=== PATIENT | male | born 1940 | race Caucasian/White ===

== ENCOUNTER → 2017-07-07 13:02 | Outpatient (CLI) | payer MEDICARE, SELFPAY ==
[2017-07-07 15:22] LABS: Absolute Lymphocyte Count 0.82 X10^3/ul (0.83-4.51); Absolute Neutrophil Count 3.9 X10^3/uL (2.0-7.7); Basophil# 0.02 X10^3/uL; Basophil% 0.4 % (0-1); Eosinophil# 0.11 X10^3/uL; Eosinophils% 2.1 % (0-5); Hematocrit 46.1 % (40-54); Hemoglobin 15.4 g/dl (13.0-16.5); Lymphocyte # 0.82 X10^3/ul (4.0); Lymphocyte % 15.4 % (19-41); Mean Corp Hgb Conc 33.4 g/gl (32-36); Mean Corpuscular Hgb 32.2 pg (27.0-32.0); Mean Corpuscular Volume 96.2 fL (80-94); Monocyte# 0.46 X10^3/uL; Monocyte% 8.7 % (0-10); Neutrophil # 3.89 X10^3/uL (2.7-7.7); Neutrophil % 73.2 % (47-70); Platelet Count 188 K/mm3 (150-450); RBC Distribution Width CV 12.9 % (11.6-14.6); RBC Distribution Width SD 45.2 fl (35.1-43.9); Red Blood Count 4.79 M/mm3 (4.6-6.2); White Blood Count 5.3 K/mm3 (4.4-11.0)
[2017-07-07 15:24] LABS: POSITIVE COUNT NO; POSITIVE DIFFERENTIAL NO; POSITIVE MORPHOLOGY NO
[2017-07-07 15:39] LABS: Anion Gap 9 (5-15); BUN 15 mg/dL (7-18); BUN/Creat Ratio 12.2 RATIO (10-20); CPK Total, Creatine Kinase 178 U/L (39-308); Calcium,Total 8.9 mg/dL (8.5-10.1); Chloride 103 mmol/L (98-107); Creatinine, Serum 1.23 mg/dL (0.70-1.30); EST Glomerular Filtration Rate 61 mL/min (>60); Est Glom Filt Rate - Afr Amer 74 mL/min (>60); Glucose 101 mg/dL (74-106); Potassium 4.5 mmol/L (3.5-5.1); Sodium Level 138 mmol/L (136-145)
[2017-07-08 09:09] LABS: Myoglobin, Serum 91 ng/mL (28-72)
== END ==
PROVIDERS: Family Provider Family Medicine Geriatric Medicine; PCP Family Medicine Geriatric Medicine; Visit Provider Family Medicine Geriatric Medicine
DX: R07.9 Chest pain, unspecified (principal)
CPT/HCPCS: 36415; 80048; 82550; 83874; 84484; 85025

== ENCOUNTER 2018-01-24 14:43 | Emergency (ER) | payer OTHER, MEDICARE, SELFPAY ==
[2018-01-24 14:44] VITALS: BP 154/105; PULSE 77; RESP 18; TEMP 36.9; O2SAT 96; BMI 25.1
--- NOTE | 2018-01-24 14:57 | CT_ITS ---
STUDY: CT BRAIN WITHOUT CONTRAST REASON FOR EXAM: Male, 77 years old. Fall hitting frontal region. Swelling RADIATION DOSAGE (If Supplied By Facility): CTDIvol = ( 60.81 ) mGy, DLP = ( 998.67 ) mGycm TECHNIQUE: Transaxial CT imaging of the brain was performed without administration of intravenous contrast material. Individualized dose optimization techniques were used for this CT. COMPARISON: None. FINDINGS: There is frontal soft tissue swelling. Normal calvarium. Normal size ventricles and extra-axial spaces for the patient's age. There are mild areas of decreased attenuation within the white matter tracts of the supratentorial brain, consistent with microvascular disease changes. Normal basal ganglia and thalami. Normal brainstem. Normal cerebellum. There is no intracranial hemorrhage. There are no findings of an acute ischemic infarction. There is mucoperiosteal inflammatory disease of the paranasal sinuses consistent with mild chronic sinusitis. CT/Brain/Head without Contrast IMPRESSION: Chronic involutional changes of the brain. No hemorrhage. Soft tissue swelling. Electronically Signed: Tab Viveros MD at 16:19 EDT , Service support ,
--- NOTE | 2018-01-24 14:57 | CT_ITS ---
STUDY: CT CERVICAL SPINE WITHOUT CONTRAST REASON FOR EXAM: Male, 77 years old. Fall. RADIATION DOSAGE (If Supplied By Facility): CTDIvol = ( 25.72 ) mGy, DLP = ( 482.12 ) mGycm TECHNIQUE: High resolution transaxial imaging was performed without contrast material. Sagittal and coronal images were reconstructed. Individualized dose optimization techniques were used for this CT. COMPARISON: None FINDINGS: No definite acute fracture/dislocation. The cervical junction is intact. C1-C2 articulation is intact. There is reversal of curvature. There is grossly normal alignment. Facet joints are intact at all levels bilaterally. No jumped facets. There is multilevel spondyloarthropathy. Multilevel degenerative disc disease seen. Multilevel loss of disc height. Multilevel posterior marginal osteophytes and disc bulges. Multilevel neural foraminal narrowing. Multilevel compromise of the spinal canal. Findings most prominent at C4-C5, and C5-C6. Visualized paraspinal soft tissues and structures are unremarkable. CT/Spine Cervical without Contras IMPRESSION: There is no definite acute fracture/dislocation. Degenerative changes. Electronically Signed: Braulio Alves MD at 17:19 EDT , Service support ,
--- NOTE | 2018-01-24 15:10 | RAD_ITS ---
STUDY: X-RAY - LEFT SHOULDER REASON FOR EXAM: Male, 77 years old. Left shoulder pain following a fall. TECHNIQUE: 4 view(s) of the shoulder. COMPARISON: None. FINDINGS: There is mild degenerative arthrosis of the glenohumeral articulation. Normal acromioclavicular joint. Normal acromion. Normal humeral head and visualized proximal humerus. The soft tissue structures are unremarkable. Normal visualized pulmonary apex. RAD/Shoulder min 2 Views IMPRESSION: Mild degree of degenerative changes of the glenohumeral joint. Electronically Signed: Lavelle Del Valle MD at 15:24 EDT Tel [phone], Service support ,
--- NOTE | 2018-01-24 15:29 | ED.VISSUMM ---
- ER Visit Summary Date of Service: 01/24/18 Chief Complaint: Fall History of Present Illness: The patient is a 77 M presenting for evaluation secondary to fall. Patient reports that he was climbing a curb and suffered a mechanical fall. He fell on a left outstretched arm and also struck his head on the ground. Patient states that he did not have any loss of consciousness. Patient states that he was able to stand up and walk into his place of work, and someone told him that he was bleeding. Patient states that he has pain on his forehead where he suffered an abrasion as well as his left shoulder. Patient is not on any sort of anticoagulants. Denies any numbness or weakness or visual changes. Review of systems otherwise negative. Physical Examination: Primary survey: Airway is patent, breath sounds equal bilateral, central peripheral pulses 2+ and symmetric, GCS 15 out of 15. Vitals within normal limits. Secondary survey: General: Well-nourished well-developed no acute distress Head: Normocephalic abrasion noted over the patient's anterior forehead no lacerations Eyes: PERRLA, EOMI ENT: Atraumatic Neck: Nontender full range of motion, no step-offs noted Heart: Regular rate and rhythm no murmurs Lungs: Respirations nondistressed, lung sounds clear to auscultation bilaterally, chest nontender, normal chest excursion bilaterally Abdomen: Soft nontender nondistended normal bowel sounds no palpable abdominal masses Back: Nontender no step-offs noted Extremities: Limited range of motion of the left shoulder. There seems to be swelling and tenderness palpation in this area. Normal range of motion of the elbow wrist and hand. Normal distal pulses normal distal sensation. Skin: Normal color no trauma Neuro: Alert and oriented ?4, GCS 15 out of 15, no lateralizing neurological deficits. Test Results: Shoulder x-ray per radiology demonstrates chronic changes no evidence of acute fracture. CT brain and cervical spine found to be negative Emergency Department Course and Treatment: Patient presented secondary to a fall. Primary and secondary surveys are noted as above. Radiographs of the left shoulder found to be negative, CT brain and cervical spine found to be negative. Patient will be placed in a sling for comfort, he is given ibuprofen for pain. Patient was recommended to follow-up with [facility] as needed. Disposition: Discharge Impression: 1. Forehead abrasion 2. Left shoulder contusion 3. Mechanical fall This note was generated with iBuildApp dictation software. It may contain incorrect words, spelling, and punctuation that were not noted in review of the chart prior to signing ED Disposition - Plan for ED Patient: Disposition: Home or Assisted Living Chief Complaint: Fall Diagnosis: Shoulder contusion, Forehead abrasion Instructions: ED Mechanical Fall Referrals: [facility] [GROUP OF PHYSICIANS] - As Needed
[2018-01-24] MEDS: Ibuprofen 600 MG Tablet PO (17:51)
== END 2018-01-24 18:20 | disposition home or self-care (01) ==
PROVIDERS: Emergency Provider Emergency Medicine; Family Provider Family Medicine Geriatric Medicine; PCP Family Medicine Geriatric Medicine
DX: S40.012A Contusion of left shoulder, initial encounter (principal); S00.81XA Abrasion of other part of head, initial encounter; W10.1XXA Fall (on)(from) sidewalk curb, initial encounter; Y93.9 Activity, unspecified; Y92.480 Sidewalk as the place of occurrence of the external cause; Y99.9 Unspecified external cause status; I25.10 Atherosclerotic heart disease of native coronary artery without angina pectoris
CPT/HCPCS: 70450; 72125; 73030; 99284

== ENCOUNTER → 2018-04-03 14:31 | Outpatient (CLI) | payer MEDICARE, SELFPAY ==
[2018-02-10 14:52] VITALS: BMI 25.1
[2018-04-03 15:45] LABS: Absolute Lymphocyte Count 1.12 X10^3/ul (0.83-4.51); Absolute Neutrophil Count 3.5 X10^3/uL (2.0-7.7); Basophil# 0.03 X10^3/uL; Basophil% 0.5 % (0-1); Eosinophil# 0.14 X10^3/uL; Eosinophils% 2.6 % (0-5); Hematocrit 44.4 % (40-54); Hemoglobin 14.8 g/dl (13.0-16.5); Lymphocyte # 1.12 X10^3/ul (4.0); Lymphocyte % 20.4 % (19-41); Mean Corp Hgb Conc 33.3 g/gl (32-36); Mean Corpuscular Hgb 32.4 pg (27.0-32.0); Mean Corpuscular Volume 97.2 fL (80-94); Mean Platelet Vol. 10.6 fl (6.2-12.0); Monocyte# 0.66 X10^3/uL; Neutrophil # 3.52 X10^3/uL (2.7-7.7); Neutrophil % 64.1 % (47-70); Platelet Count 176 K/mm3 (150-450); RBC Distribution Width CV 13.8 % (11.6-14.6); RBC Distribution Width SD 47.9 fl (35.1-43.9); Red Blood Count 4.57 M/mm3 (4.6-6.2); White Blood Count 5.5 K/mm3 (4.4-11.0)
[2018-04-03 16:09] LABS: POSITIVE COUNT NO; POSITIVE DIFFERENTIAL NO; POSITIVE MORPHOLOGY NO
[2018-04-03 16:15] LABS: Vitamin D,25 Hydroxy 20.5 ng/mL (29.95-100.01)
[2018-04-03 16:16] LABS: ALB/GLOB Ratio 1.2 RATIO (0.9-2.4); AST(SGOT) 26 U/L (15-37); Alanine Aminotransfer ALT/SGPT 35 U/L (16-61); Alkaline Phosphatase 68 U/L (45-117); Anion Gap 9 (5-15); BUN 19 mg/dL (7-18); BUN/Creat Ratio 15.6 RATIO (10-20); Calcium,Total 8.5 mg/dL (8.5-10.1); Chloride 104 mmol/L (98-107); Creatinine, Serum 1.22 mg/dL (0.70-1.30); EST Glomerular Filtration Rate 61 mL/min (>60); Est Glom Filt Rate - Afr Amer 74 mL/min (>60); Globulin 3.3 g/dL (2.2-4.2); Glucose 84 mg/dL (74-106); Potassium 4.3 mmol/L (3.5-5.1); Protein, Total 7.3 g/dL (6.4-8.2); Sodium Level 140 mmol/L (136-145); Thyroid Stim Hormone (TSH) 3.27 uIU/mL (0.358-3.74); Uric Acid 7.2 mg/dL (3.5-7.2)
== END ==
PROVIDERS: Family Provider Family Medicine Geriatric Medicine; PCP Family Medicine Geriatric Medicine; Referring Provider Family Medicine Geriatric Medicine; Visit Provider Family Medicine Geriatric Medicine
DX: E55.9 Vitamin D deficiency, unspecified (principal); I10 Essential (primary) hypertension; M10.9 Gout, unspecified
CPT/HCPCS: 36415; 80053; 82306; 84443; 84550; 85025

== ENCOUNTER → 2018-06-12 16:31 | Outpatient (CLI) | payer MEDICARE, SELFPAY ==
[2018-02-10 14:52] VITALS: BMI 25.1
[2018-06-12 17:21] LABS: Absolute Lymphocyte Count 1.13 X10^3/ul (0.83-4.51); Absolute Neutrophil Count 7.6 X10^3/uL (2.0-7.7); Basophil# 0.03 X10^3/uL; Basophil% 0.3 % (0-1); Eosinophil# 0.05 X10^3/uL; Eosinophils% 0.5 % (0-5); Hematocrit 44.2 % (40-54); Hemoglobin 14.7 g/dl (13.0-16.5); Lymphocyte # 1.13 X10^3/ul (4.0); Lymphocyte % 11.6 % (19-41); Mean Corp Hgb Conc 33.3 g/gl (32-36); Mean Corpuscular Hgb 32.2 pg (27.0-32.0); Mean Corpuscular Volume 96.9 fL (80-94); Mean Platelet Vol. 10.1 fl (6.2-12.0); Monocyte# 0.85 X10^3/uL; Monocyte% 8.8 % (0-10); Neutrophil # 7.62 X10^3/uL (2.7-7.7); Neutrophil % 78.5 % (47-70); Platelet Count 222 K/mm3 (150-450); RBC Distribution Width CV 13.3 % (11.6-14.6); RBC Distribution Width SD 45.9 fl (35.1-43.9); Red Blood Count 4.56 M/mm3 (4.6-6.2); White Blood Count 9.7 K/mm3 (4.4-11.0)
[2018-06-12 17:25] LABS: POSITIVE COUNT NO; POSITIVE DIFFERENTIAL NO; POSITIVE MORPHOLOGY NO
[2018-06-12 17:37] LABS: Anion Gap 7 (5-15); BUN 14 mg/dL (7-18); BUN/Creat Ratio 11.1 RATIO (10-20); CRP < 2.90 mg/L (0.0-3.0); Chloride 104 mmol/L (98-107); Creatinine, Serum 1.26 mg/dL (0.70-1.30); EST Glomerular Filtration Rate 59 mL/min (>60); Est Glom Filt Rate - Afr Amer 71 mL/min (>60); Glucose 88 mg/dL (74-106); Potassium 4.2 mmol/L (3.5-5.1); Sodium Level 138 mmol/L (136-145); Uric Acid 7.3 mg/dL (3.5-7.2)
[2018-06-12 17:41] LABS: Erythrocyte Sedimentation Rate 2 mm/hr (0-20)
== END ==
PROVIDERS: Family Provider Family Medicine Geriatric Medicine; PCP Family Medicine Geriatric Medicine; Visit Provider Family Medicine Geriatric Medicine
DX: I10 Essential (primary) hypertension (principal); M10.9 Gout, unspecified
CPT/HCPCS: 36415; 80048; 84550; 85025; 85652; 86140

== ENCOUNTER → 2018-06-12 16:48 | Outpatient (CLI) | payer MEDICARE, SELFPAY ==
[2018-02-10 14:52] VITALS: BMI 25.1
--- NOTE | 2018-06-12 17:00 | RAD_ITS ---
STUDY: X-RAY - RIGHT FOOT CLINICAL: Male, 78 years old. Pain TECHNIQUE: 3 view(s) of the foot. COMPARISON: None. FINDINGS: Old fracture of the ulnar styloid with nonunion. Degenerative changes are present. Posterior and plantar calcaneal spurs. Soft tissue swelling. Vascular calcifications. No acute fracture or dislocation identified. RAD/Foot min 3 Views IMPRESSION: Mild soft tissue swelling. There are no acute fractures or dislocations identified. Degenerative changes. Electronically Signed: Khoa Murillo, at 7:17 EDT Tel , Service support ,
== END ==
LOC: RAD 16:51
PROVIDERS: Family Provider Family Medicine Geriatric Medicine; PCP Family Medicine Geriatric Medicine; Referring Provider Family Medicine Geriatric Medicine; Visit Provider Family Medicine Geriatric Medicine
DX: M79.609 Pain in unspecified limb (principal); M10.9 Gout, unspecified; I10 Essential (primary) hypertension
CPT/HCPCS: 36415; 73630; 80048; 84550; 85025; 85652; 86140

== ENCOUNTER 2018-11-03 18:04 | Emergency (ER) | payer MEDICARE, SELFPAY ==
[2018-11-03 18:05] VITALS: BP 168/111; PULSE 73; RESP 16; TEMP 37.2; O2SAT 98; BMI 25.8
[2018-11-03 18:39] VITALS: RESP 16
--- NOTE | 2018-11-03 19:24 | ED.DCSUM_ITS ---
- ER Visit Summary Date of Service: 11/03/18 Chief Complaint: Left eye pain History of Present Illness: The patient is a 78 M with burning left eye pain. This started after he had been holding a cabinet while someone else was sawing and drilling. He is not aware of any foreign bodies. He noted some redness to the area. No vision changes. No halos or other visual abnormalities. He does not wear contact lenses. Physical Examination: Afebrile and vital signs unremarkable. Extraocular structures are unremarkable. Pupils normal. Extraocular motion normal. Tetracaine and fluor strip applied. No uptake. Lids everted. No foreign bodies. Test Results: As above Emergency Department Course and Treatment: No obvious foreign bodies, abrasions. Nothing to suggest glaucoma or other etiologies. I suspect he has conjunctivitis and that the symptoms started after he had been sawing. Patient treated with antibiotic drops. Follow-up with ophthalmology. Return right away for visual changes or any other concerns. Treatment Plan: As above Disposition: Discharge Impression: 1. Left eye conjunctivitis This note was generated with ProntoForms dictation software. It may contain incorrect words, spelling, and punctuation that were not noted in review of the chart prior to signing ED Disposition - Plan for ED Patient: Referrals: Mike Palmer Chi, MD [Primary Care Provider] -
--- NOTE | 2018-11-03 19:26 | ED.DEP ---
ED Disposition - Plan for ED Patient: Instructions: CONJUNCTIVITIS, Bacterial Prescriptions: Erythromycin Ophthalmic 1 applic LEFT EYE 4X/DAY 5 Days #1 opth.tube Prescription Printed Referrals: Obed Bergman MD [STAFF PHYSICIAN] -
[2018-11-03] MEDS: Tetracaine 0.5% Ophthalmic Bottle 1 DRP LEFT EYE (19:40)
[2018-11-03] MEDS: Erythromycin Base 1 OPTH.TUBE 1 APPLIC LEFT EYE (19:40)
[2018-11-03] MEDS: Fluorescein 1 MG STRIP 1 STRIP LEFT EYE (19:40)
[2018-11-03 19:42] VITALS: PULSE 72; RESP 16; O2SAT 98
== END 2018-11-03 19:44 | disposition home or self-care (01) ==
LOC: ED 19:11
PROVIDERS: Emergency Provider Emergency Medicine; Family Provider Family Medicine Geriatric Medicine; PCP Family Medicine Geriatric Medicine
DX: H10.9 Unspecified conjunctivitis (principal); I10 Essential (primary) hypertension
CPT/HCPCS: 99283

== ENCOUNTER → 2019-05-08 | Outpatient (CLI) | payer MEDICARE, SELFPAY ==
[2019-05-08 17:49] LABS: Absolute Lymphocyte Count 0.88 X10^3/uL (0.83-4.51); Absolute Neutrophil Count 6.9 X10^3/uL (2.0-7.7); Basophil# 0.03 X10^3/uL; Basophil% 0.4 % (0-1); Eosinophil# 0.05 X10^3/uL; Eosinophils% 0.6 % (0-5); Hematocrit 42.6 % (40-54); Hemoglobin 13.7 g/dL (13.0-16.5); Lymphocyte # 0.88 X10^3/ul (4.0); Lymphocyte % 10.4 % (19-41); Mean Corp Hgb Conc 32.2 g/dL (32-36); Mean Corpuscular Hgb 30.6 pg (27.0-32.0); Mean Corpuscular Volume 95.1 fL (80-94); Mean Platelet Vol. 10.2 fl (6.2-12.0); Monocyte# 0.62 X10^3/uL; Monocyte% 7.3 % (0-10); NRBC Flagged by Analyzer 0 % (0-5); Neutrophil # 6.87 X10^3/uL (2.7-7.7); Neutrophil % 80.9 % (47-70); Platelet Count 218 K/mm3 (150-450); RBC Distribution Width CV 13.1 % (11.6-14.6); RBC Distribution Width SD 45.7 fl (35.1-43.9); Red Blood Count 4.48 M/mm3 (4.6-6.2); White Blood Count 8.5 K/mm3 (4.4-11.0)
[2019-05-08 17:52] LABS: ALB/GLOB Ratio 0.9 RATIO (0.9-2.4); AST(SGOT) 19 U/L (15-37); Alanine Aminotransfer ALT/SGPT 27 U/L (16-61); Albumin, Serum 3.7 g/dL (3.2-5.0); Alkaline Phosphatase 71 U/L (45-117); Anion Gap 5 (5-15); BUN 17 mg/dL (7-18); BUN/Creat Ratio 13.6 RATIO (10-20); Calcium,Total 8.8 mg/dL (8.5-10.1); Chloride 106 mmol/L (98-107); Creatinine, Serum 1.25 mg/dL (0.70-1.30); EST Glomerular Filtration Rate 59 mL/min (>60); Est Glom Filt Rate - Afr Amer 72 mL/min (>60); Glucose 78 mg/dL (74-106); Protein, Total 7.7 g/dL (6.4-8.2); Sodium Level 138 mmol/L (136-145); Thyroid Stim Hormone (TSH) 2.81 uIU/mL (0.358-3.74); Uric Acid 6.3 mg/dL (3.5-7.2); Vitamin D,25 Hydroxy 18.8 ng/mL (29.95-100.01)
== END | disposition home or self-care (01) ==
LOC: POLAB3 13:06
PROVIDERS: PCP Family Medicine Geriatric Medicine; Visit Provider Family Medicine Geriatric Medicine
DX: E55.9 Vitamin D deficiency, unspecified (principal); I10 Essential (primary) hypertension; M10.9 Gout, unspecified
CPT/HCPCS: 36415; 80053; 82306; 84443; 84550; 85025

== ENCOUNTER → 2019-10-31 | Outpatient (CLI) | payer MEDICARE, SELFPAY ==
[2019-10-18 14:12] VITALS: BMI 26.6
--- NOTE | 2019-10-31 06:10 | ECHOCS_ITS ---
Reason For Study: S/P CABG Procedure This was a 2D Doppler, Color Flow transthoracic echocardiogram. The study was technically difficult. Contrast injection was performed. Exam performed in department. Left Ventricle Normal LV size. Moderate concentric left ventricular hypertrophy. Segmental dysfunction with preserved ejection fraction (see wall motion). The estimated ejection fraction is 60 %. Post operative septal motion. Diastolic function is indeterminate. Mid-inferoseptal : Hypokinetic. Mid- anteroseptal : Hypokinetic. Right Ventricle Normal RV size. Normal systolic function. Atria The left atrium is mildly enlarged. Normal right atrium. No doppler evidence for ASD. Mitral Valve There is mild mitral annular calcification. Mild focal mitral valve calcification of the anterior leaflet. Trivial mitral valve insufficiency. Tricuspid Valve Normal tricuspid valve. Trivial tricuspid valve insufficiency. Unable to estimate RV systolic pressure/pulmonary artery pressure due to technically difficult study. Aortic Valve Trisinus/trileaflet aortic valve. Mild focal aortic valve calcification. Pulmonic Valve The pulmonic valve is not well visualized. Great Vessels The aortic root is not well visualized. Pericardium/Pleural No pericardial effusion. Medication 22 gauge I.V. with prn adaptor inserted into right arm. Diluted definity 2.5ml given slow IV push to enhance endocardial definition. MMode/2D Measurements & Calculations LVIDd: 4.0 cm IVSd: 1.6 cm LA dimension: 3.8 cm LVIDs: 2.3 cm LVPWd: 1.8 cm FS: 43.0 % LAV(MOD-bp): 44.8 ml LA A4 area: 19.6 cm2 LAV(MOD-bp) Indexed: 22.2 ml/m2 LAV(MOD-sp2): 36.3 ml LAV(MOD-sp4): 51.4 ml Time Measurements MV dec time: 0.41 sec Doppler Measurements & Calculations MV E max robert: 100.4 cm/sec Lat Peak E' Robert: 5.9 cm/sec Med Peak E' Robert: 4.8 cm/sec MV A max robert: 120.9 cm/sec E/E' lat: 17.1 E/E' med: 21.0 MV E/A: 0.83 MV V2 max: 129.0 cm/sec MV P1/2t max robert: 125.2 cm/sec Ao V2 max: 105.5 cm/sec MV max P.7 mmHg MV P1/2t: 93.3 msec Ao max P.4 mmHg MV V2 mean: 72.2 cm/sec MV dec slope: 393.2 cm/sec2 Ao V2 mean: 67.1 cm/sec MV mean P.4 mmHg Ao mean P.1 mmHg MV V2 VTI: 50.4 cm MVA(P1/2t): 2.4 cm2 Ao V2 VTI: 23.5 cm LV V1 max: 96.6 cm/sec PA V2 max: 73.2 cm/sec LV V1 max P.7 mmHg LV V1 mean P.6 mmHg LV V1 mean: 58.5 cm/sec LV V1 VTI: 22.0 cm Interpretation Summary The study was technically difficult. Contrast injection was performed. Segmental dysfunction with preserved ejection fraction (see wall motion). The estimated ejection fraction is 60 %. Post operative septal motion. Moderate concentric left ventricular hypertrophy. The left atrium is mildly enlarged. There is mild mitral annular calcification. Mild focal mitral valve calcification of the anterior leaflet. Trivial mitral valve insufficiency. Trivial tricuspid valve insufficiency. Mild focal aortic valve calcification. Unable to estimate RV systolic pressure/pulmonary artery pressure due to technically difficult study. Diastolic function is indeterminate. Comment: The previous TTE from 0-05/18/2011 demonstrated a positive agitated saline contrast study for right to left interatrial shunt c/w a PFO vs. ASD. Ordering Physician: Juaquin Gilbert Referring Physician: Mike Palmer Chi Performed By: Julio Petit RCS
--- NOTE | 2019-10-31 09:09 | STRESSREP ---
Stress Test Report Date: 10-31-2019 Procedure: Exercise tolerance test/imaging study Indications: Chest pain; CAD; CABG Consent: Per the patient Procedure: The patient exercised on a Godfrey protocol for 4 minutes and 29 seconds completing Stage I and 1 minute and 29 seconds of Stage II achieving a peak heart rate of 75 bpm (52 % predicted maximal heart rate) with a peak blood pressure 142/88 mmHg and a peak MET capacity of 6 METs. The baseline ECG demonstrated sinus bradycardia. The peak exercise ECG demonstrated no obvious ECG changes. There were no cardiac dysrhythmias pretest, during exercise, or recovery. The functional capacity was considered decreased. There was no complaint of chest discomfort during exercise or recovery. The examination was discontinued secondary to dyspnea and knee discomfort. Impression: 1. Technically inadequate (percent predicted maximal heart rate less than 85%) exercise tolerance test 2. Peak exercise ECG with no obvious ECG changes of the heart rate achieved 3. There were no cardiac dysrhythmias pretest, during exercise, or recovery 4. Pharmacologic entities Regadenoson) evaluation pending Procedure: Pharmacologic stress nuclear imaging study Consent: Per the patient Procedure: The patient underwent pharmacologic (Regadenoson) evaluation with a peak heart rate of 66 beats per minute (46 %predicted maximal heart rate) and a peak blood pressure of 164/90 mmHg. The baseline ECG demonstrated sinus bradycardia. The peak pharmacologic ECG demonstrated no obvious ECG changes. There were no cardiac dysrhythmias pretest, during pharmacologic infusion, or recovery. There was no complaint of chest discomfort during pharmacologic infusion or recovery. The examination was discontinued secondary to completion of protocol. Impression: 1. Pharmacologic (Regadenoson) evaluation 2. Peak pharmacologic ECG with no obvious ECG changes. 3. There were no cardiac dysrhythmias pretest, during pharmacologic infusion, or recovery. 4. Nuclear images pending Myocardial perfusion imaging study: Technique: The patient was injected with 10.7 millicuries of technetium 99m Cardiolite and subsequently rest SPECT Cardiolite nuclear imaging was obtained in the horizontal long, vertical long, and short axis views. The patient exercised on a Godfrey protocol for 4 minutes and 29 seconds completing Stage I and 1 minute and 29 seconds of Stage II achieving a peak heart rate of 75 bpm (52 % predicted maximal heart rate) with a peak blood pressure 142/88 mmHg and a peak MET capacity of 6 METs. The patient underwent pharmacologic (Regadenoson) evaluation with a peak heart rate of 66 beats per minute (46 % percent predicted maximal heart rate) and a peak blood pressure of 164/90 mmHg. The patient was injected with 32.5 millicuries of technetium 99m Cardiolite and subsequently stress SPECT Cardiolite nuclear imaging was obtained in the horizontal long, vertical long, and short axis views. A gated Cardiolite study at peak stress was obtained. Interpretation: Rest and stress SPECT Cardiolite nuclear imaging status post realignment, normalization, and attenuation correction demonstrate relative uniform tracer uptake and myocardial perfusion appearing within normal limits. There is end systolic thickening and brightening. The gated Cardiolite study demonstrates myocardial thickening and inward wall motion. The reported LVEF is 65 %. Impression: 1. Rest and stress SPECT Cardiolite nuclear imaging demonstrate relative uniform tracer uptake and myocardial perfusion appearing within normal limits. 2. The gated Cardiolite study reports an LVEF of 65 %. This note was generated with PBJ Conciergeation software. It may contain incorrect words, spelling, and punctuation that were not noted in checking the note before signing.
== END | disposition home or self-care (01) ==
LOC: CVS 06:10
PROVIDERS: PCP Family Medicine Geriatric Medicine; Referring Provider Internal Medicine Cardiovascular Disease; Visit Provider Internal Medicine Cardiovascular Disease
DX: I25.10 Atherosclerotic heart disease of native coronary artery without angina pectoris (principal); Z95.1 Presence of aortocoronary bypass graft
CPT/HCPCS: 78452; 93017; 93306; A9500; Q9957; A4216; C8929; J2785

== ENCOUNTER → 2019-11-06 | Outpatient (CLI) | payer MEDICARE, SELFPAY ==
[2019-10-18 14:12] VITALS: BMI 26.6
[2019-11-06 15:38] LABS: Absolute Lymphocyte Count 1.02 X10^3/uL (0.83-4.51); Absolute Neutrophil Count 3.5 X10^3/uL (2.0-7.7); Basophil# 0.04 X10^3/uL; Basophil% 0.8 % (0-1); Eosinophil# 0.12 X10^3/uL; Eosinophils% 2.3 % (0-5); Hematocrit 43.2 % (40-54); Hemoglobin 14.6 g/dL (13.0-16.5); Lymphocyte # 1.02 X10^3/ul (4.0); Lymphocyte % 19.3 % (19-41); Mean Corp Hgb Conc 33.8 g/dL (32-36); Mean Corpuscular Hgb 33.3 pg (27.0-32.0); Mean Corpuscular Volume 98.6 fL (80-94); Mean Platelet Vol. 10.7 fl (6.2-12.0); Monocyte# 0.61 X10^3/uL; Monocyte% 11.6 % (0-10); NRBC Flagged by Analyzer 0 % (0-5); Neutrophil # 3.47 X10^3/uL (2.7-7.7); Neutrophil % 65.6 % (47-70); Platelet Count 175 K/mm3 (150-450); RBC Distribution Width CV 13.2 % (11.6-14.6); RBC Distribution Width SD 47.3 fl (35.1-43.9); Red Blood Count 4.38 M/mm3 (4.6-6.2); White Blood Count 5.3 K/mm3 (4.4-11.0)
[2019-11-06 15:55] LABS: Vitamin D,25 Hydroxy 37.2 ng/mL
[2019-11-06 16:03] LABS: ALB/GLOB Ratio 1.1 RATIO (0.9-2.4); AST(SGOT) 23 U/L (15-37); Alanine Aminotransfer ALT/SGPT 34 U/L (16-61); Albumin, Serum 4.1 g/dL (3.2-5.0); Alkaline Phosphatase 60 U/L (45-117); Anion Gap 6 (5-15); BUN 17 mg/dL (7-18); BUN/Creat Ratio 12.8 RATIO (10-20); Calcium,Total 8.7 mg/dL (8.5-10.1); Chloride 102 mmol/L (98-107); Creatinine, Serum 1.33 mg/dL (0.70-1.30); EST Glomerular Filtration Rate 55 mL/min (>60); Est Glom Filt Rate - Afr Amer 67 mL/min (>60); Globulin 3.6 g/dL (2.2-4.2); Glucose 93 mg/dL (74-106); Potassium 4.3 mmol/L (3.5-5.1); Protein, Total 7.7 g/dL (6.4-8.2); Sodium Level 136 mmol/L (136-145); Thyroid Stim Hormone (TSH) 5.12 uIU/mL (0.358-3.74); Uric Acid 7.4 mg/dL (3.5-7.2)
== END | disposition home or self-care (01) ==
LOC: POLAB3 13:04
PROVIDERS: PCP Family Medicine Geriatric Medicine; Visit Provider Family Medicine Geriatric Medicine
DX: E55.9 Vitamin D deficiency, unspecified (principal); I10 Essential (primary) hypertension; M10.9 Gout, unspecified
CPT/HCPCS: 36415; 80053; 82306; 84443; 84550; 85025; 87086; 87088

== ENCOUNTER → 2019-11-14 | Outpatient (CLI) | payer MEDICARE, SELFPAY ==
[2019-10-18 14:12] VITALS: BMI 26.6
--- NOTE | 2019-11-14 13:00 | CT_ITS ---
STUDY: CT ABDOMEN AND PELVIS WITHOUT CONTRAST REASON FOR EXAM: Male, 79 years old. RT FLANK PAIN x several days. Hx of kidney stones, cholecystectomy, 3vessel CABG and HTN-rx controlled. RADIATION DOSAGE (If Supplied By Facility): CTDIvol = ( 11.17 ) mGy, DLP = ( 626.39 ) mGycm TECHNIQUE: Transaxial images were obtained from the dome of the diaphragm to the symphysis pubis without oral contrast, and without intravenous contrast. Sagittal and coronal images were reconstructed. Individualized dose optimization techniques were used for this CT. COMPARISON: Comparison is made with prior study dated 03/01/2014. FINDINGS: Stable increased markings at the lung bases suggestive of scarring. Prior CABG. Coronary artery calcification. Mild cardiomegaly. Normal liver. The patient is status post cholecystectomy. There are multiple benign calcified granulomata of the spleen. Normal pancreas. Normal bilateral adrenal glands. There are nonobstructive bilateral intrarenal calculi. The largest on the left side measures 4 mm and the largest on the right side measures 3 mm. Small bilateral renal cysts. Normal visualized stomach. Normal small intestine. Normal colon. The appendix is visualized and appears normal. There is diffuse atherosclerotic calcification of the abdominal aorta, without a demonstrated aneurysm. Normal inferior vena cava. Normal retroperitoneum. Mild degree of diffuse bladder wall thickening. There is a left-sided inguinal hernia containing adipose tissue. There are mild degenerative changes of the visualized lumbar spine. Stable loss of height of the superior endplate of the L1 vertebrae. CT/Abdomen/Pelvis without Cont IMPRESSION: Stable bilateral renal cysts and bilateral nonobstructive intrarenal calculi. Bladder wall thickening. Electronically Signed: Lavelle Del Valle, at 13:50 EDT , Service support ,
== END | disposition home or self-care (01) ==
LOC: CT 12:57
PROVIDERS: PCP Family Medicine Geriatric Medicine; Referring Provider Family Medicine Geriatric Medicine; Visit Provider Family Medicine Geriatric Medicine
DX: N20.0 Calculus of kidney (principal)
CPT/HCPCS: 74176

== ENCOUNTER → 2019-12-27 | Outpatient (CLI) | payer MEDICARE, SELFPAY ==
[2019-10-18 14:12] VITALS: BMI 26.6
== END | disposition home or self-care (01) ==
LOC: POLAB3 09:13
PROVIDERS: PCP Family Medicine Geriatric Medicine; Visit Provider Family Medicine Geriatric Medicine
DX: E03.9 Hypothyroidism, unspecified (principal)
CPT/HCPCS: 36415; 84443

== ENCOUNTER → 2020-01-03 | Outpatient (CLI) | payer MEDICARE, SELFPAY ==
[2019-10-18 14:12] VITALS: BMI 26.6
== END | disposition home or self-care (01) ==
LOC: POLAB3 17:00 → LABSPEC 17:01
PROVIDERS: PCP Family Medicine Geriatric Medicine; Visit Provider Family Medicine Geriatric Medicine
DX: N39.0 Urinary tract infection, site not specified (principal)
CPT/HCPCS: 87086; 87088

== ENCOUNTER → 2020-01-25 | Outpatient (CLI) | payer MEDICARE, SELFPAY ==
[2019-10-18 14:12] VITALS: BMI 26.6
--- NOTE | 2020-01-25 10:42 | RAD_ITS ---
STUDY: X-RAY - LEFT KNEE REASON FOR EXAM: Male, 79 years old. KNEE PAIN AND LROM x2 DAYS, NO INJURY -- HX OF GOUT TECHNIQUE: 4 view(s) of the knee. COMPARISON: None. FINDINGS: Normal visualized distal femur. Normal visualized proximal tibia and fibula. Normal proximal tibiofibular articulation. There is no demonstrated fracture. There is mild degenerative arthrosis of the medial femorotibial compartment. Normal lateral femorotibial compartment. There is mild degenerative arthrosis of the patellofemoral articulation. There is no demonstrated joint effusion. There appear to be anterior soft tissue swelling of the distal thigh and anterior to the patella. Correlate with physical exam. Vascular clips are seen along the medial proximal calf. RAD/Knee 4 or More Views IMPRESSION: Bones and joints are normal for age. Question anterior extra-articular soft tissue swelling. Electronically Signed: Braulio Alves MD at 23:59 EDT , Service support ,
[2020-01-25 12:39] LABS: Absolute Neutrophil Count 6.2 X10^3/uL (2.0-7.7); Basophil# 0.01 X10^3/uL; Basophil% 0.1 % (0-1); Eosinophil# 0.06 X10^3/uL; Eosinophils% 0.8 % (0-5); Erythrocyte Sedimentation Rate 4 mm/hr (0-20); Hematocrit 39.3 % (40-54); Hemoglobin 12.7 g/dL (13.0-16.5); Lymphocyte % 11.4 % (19-41); Mean Corp Hgb Conc 32.3 g/dL (32-36); Mean Corpuscular Hgb 32.2 pg (27.0-32.0); Mean Corpuscular Volume 99.5 fL (80-94); Mean Platelet Vol. 10.1 fl (6.2-12.0); Monocyte# 0.65 X10^3/uL; Monocyte% 8.2 % (0-10); NRBC Flagged by Analyzer 0 % (0-5); Neutrophil # 6.23 X10^3/uL (2.7-7.7); Neutrophil % 79.1 % (47-70); Platelet Count 150 K/mm3 (150-450); RBC Distribution Width CV 13.6 % (11.6-14.6); RBC Distribution Width SD 49.3 fl (35.1-43.9); Red Blood Count 3.95 M/mm3 (4.6-6.2); White Blood Count 7.9 K/mm3 (4.4-11.0)
[2020-01-25 12:50] LABS: Anion Gap 5 (5-15); BUN 21 mg/dL (7-18); BUN/Creat Ratio 20.4 RATIO (10-20); CRP < 2.90 mg/L (0.0-3.0); Calcium,Total 8.4 mg/dL (8.5-10.1); Chloride 104 mmol/L (98-107); Creatinine, Serum 1.03 mg/dL (0.70-1.30); EST Glomerular Filtration Rate 74 mL/min (>60); Est Glom Filt Rate - Afr Amer 90 mL/min (>60); Glucose 92 mg/dL (74-106); Potassium 3.7 mmol/L (3.5-5.1); Sodium Level 135 mmol/L (136-145); Uric Acid 5.9 mg/dL (3.5-7.2)
== END | disposition home or self-care (01) ==
PROVIDERS: PCP Family Medicine Geriatric Medicine; Referring Provider Family Medicine Geriatric Medicine; Visit Provider Family Medicine Geriatric Medicine
DX: M25.562 Pain in left knee (principal); R79.9 Abnormal finding of blood chemistry, unspecified
CPT/HCPCS: 36415; 73564; 80048; 84550; 85025; 85652; 86140

== ENCOUNTER 2020-02-06 08:54 | Emergency (ER) | payer MEDICARE, SELFPAY ==
[2019-10-18 14:12] VITALS: BMI 26.6
[2020-02-06 08:55] VITALS: BP 139/79; PULSE 83; RESP 16; TEMP 36.3; O2SAT 97; BMI 26.2
--- NOTE | 2020-02-06 09:07 | ED.VIS.GEN ---
History of Present Illness Chief Complaint: Nosebleed Informant: Patient Onset: Today Context: Sudden Onset Timing: Continuous Narrative: Patient is a 79-year-old male on daily 81 mg aspirin presenting with epistaxis. Patient states is no started bleeding when he was brushing his teeth this morning. States he tried for about an hour to get to stop but was unsuccessful and he had to call off work and came to the ER for further evaluation. He states he never had a nosebleed like this. He states he blew his nose yesterday and it was clear. He denies any other complaints at this time. Denies any trauma. Prior similar symptoms: No Past Medical History - Allergies and Home Meds Allergies/Adverse Reactions: Allergies No Known Allergies Allergy (Verified 02/06/20 08:54) Primary Care Physician: Graham Stewart MD [STAFF PHYSICIAN] - Mike Palmer Chi, MD [Primary Care Provider] - Past Medical History: - - Hypertension, hyperlipidemia Surgical History: noncontributory Lives: With Family Smoking Status: Never smoker Review of Systems General: Denies: Chills, Fever, Sweats Eyes: Denies: Visual changes - bilaterally, Diplopia ENT: Reports: - - Right-sided epistaxis. Denies: Rhinorrhea, Sore throat Cardiovascular: Denies: Chest pain, Palpitations Respiratory: Reports: Cough. Denies: Dyspnea, Dyspnea on exertion Gastrointestinal: Denies: Abdominal pain, Nausea, Vomiting, Diarrhea, Melena, Hematochezia Genitourinary: Denies: Dysuria, Hematuria, Frequency Musculoskeletal: Denies: Back pain, Extremity Pain Skin: Denies: Rash, Wounds Neurological: Denies: Headache, Weakness, Numbness Psych: Reports: Depression. Denies: Anxiety, Suicidal thoughts, Suicidal ideations Physical Exam Vital Signs/Narrative: Vital Signs Temp Pulse Resp BP Pulse Ox 02/06/20 08:55 97.3 F L 83 16 139/79 H 97 Inital Vital Signs reviewed: Yes General: Well nourished, Well developed, No Acute Distress Head: Normocephalic, Atraumatic Eyes: Perrl, EOMI ENT: Moist mucous membranes, No rhinorrhea, TM's clear, - - Steady venous bleeding from the right nares. Unable to appreciate the exact source of blood but I suspect is anterior. No signs of trauma. Neck: Supple, Nontender Cardiovascular: Regular rate, Regular rhythm, No murmurs Respiratory: No distress, CTA bilaterally, Chest nontender Abdomen: Soft, Nontender, Nondistended, Normal bowel sounds Back: Nontender, Normal Inspection Extremities: Nontender, No edema Skin: Normal color, No rash Neurological: Alert, Oriented x3, Cranial nerves II-XII grossly intact, Normal Strength, Normal Sensation Psychological: Normal affect, Normal Mood Diagnostic/Tx/Re-eval - Medical Decision Making Patient is evaluated for sudden onset of epistaxis. Appears to be anterior from the right nares. Direct pressure is applied as well as Afrin after blood clots are evacuated patient continues to have bleeding. Packing is placed and patient has resolution of his bleeding. On further discussion he notes he has not been feeling well for the past few days and is had a mild cough. 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 Patient would like to be tested. This is ordered however he is not hypoxic and has normal vital signs so he is a good candidate for outpatient follow-up. In addition patient notes that he has been sad because he just lost his brother and his first cousin within the last 2 weeks. He feels safe at home and has a daughter at home to be with him. I do not think he is homicidal or suicidal at this time. He is encouraged to follow-up with his primary care doctor to talk to someone. Patient is given outpatient follow-up with ENT. He is put on Augmentin to prevent sinusitis/toxic shock syndrome from the nasal packing. He is given tramadol for pain control. He instructed to hold his aspirin. Patient is counseled on signs and symptoms requiring return to the emergency room. Patient verbalizes agreement and understand this plan. Patient discharged home in stable and improved condition. Procedures Procedure(s): Nasal packing. Blood clots are removed from the nose. Patient has active bleeding from the right nares. Afrin applied with direct pressure afterwards. A 5.5 cm anterior nasal packing is placed and inflated. Patient tolerated procedure well with no obvious complications. Bleeding appears of stopped. ED Disposition - Plan for ED Patient: Disposition: Home or Assisted Living Diagnosis: Epistaxis not due to trauma, Exposure to COVID-19 virus Instructions: ED Epistaxis Adult Prescriptions: Amox/Clavulanate Tablet [Augmentin Tablet] 875 mg PO Q12H #20 tab Transmission Status: Received by [facility] traMADol [Ultram] 50 mg PO Q6H PRN PRN 3 Days #20 tab PRN Reason: Pain Transmission Status: Received by [facility] Referrals: Mike Palmer Chi, MD [Primary Care Provider] - Graham Stewart MD [STAFF PHYSICIAN] - Additional Instructions: Please call the ear nose and throat doctor, Dr. Stewart, to set up a follow-up appointment later this week to have the packing moving your nose. You were also tested for Covid given your fatigue and occupation. Please return to the emergency room if you develop difficulty breathing or worsening symptoms. Take antibiotics as long as the packing is in your nose. Hold your aspirin for the next week.
[2020-02-06] MEDS: Oxymetazoline 0.05% 1 SPRAY SPRAY.BTL 2 SPRAY NASAL (09:57)
[2020-02-06 10:19] VITALS: BP 127/111; PULSE 81; O2SAT 98
== END 2020-02-06 11:24 | disposition home or self-care (01) ==
PROVIDERS: Emergency Provider Emergency Medicine; PCP Family Medicine Geriatric Medicine
DX: R04.0 Epistaxis (principal); U07.1 COVID-19; E78.5 Hyperlipidemia, unspecified; I10 Essential (primary) hypertension
CPT/HCPCS: 30901; 87635; 99284; U0003

== ENCOUNTER → 2020-02-11 14:27 | Outpatient (CLI) | payer MEDICARE, SELFPAY ==
[2020-02-06 08:55] VITALS: BMI 26.2
[2020-02-11 15:36] LABS: Absolute Lymphocyte Count 0.65 X10^3/uL (0.83-4.51); Absolute Neutrophil Count 5.9 X10^3/uL (2.0-7.7); Basophil# 0.04 X10^3/uL; Basophil% 0.5 % (0-1); Eosinophil# 0.08 X10^3/uL; Eosinophils% 1.1 % (0-5); Hematocrit 31.9 % (40-54); Hemoglobin 10.4 g/dL (13.0-16.5); Lymphocyte # 0.65 X10^3/ul (4.0); Lymphocyte % 8.6 % (19-41); Mean Corp Hgb Conc 32.6 g/dL (32-36); Mean Corpuscular Hgb 32.2 pg (27.0-32.0); Mean Corpuscular Volume 98.8 fL (80-94); Mean Platelet Vol. 9.7 fl (6.2-12.0); Monocyte# 0.77 X10^3/uL; Monocyte% 10.2 % (0-10); NRBC Flagged by Analyzer 0 % (0-5); Neutrophil # 5.93 X10^3/uL (2.7-7.7); Neutrophil % 78.8 % (47-70); Platelet Count 207 K/mm3 (150-450); RBC Distribution Width CV 14.3 % (11.6-14.6); RBC Distribution Width SD 51.8 fl (35.1-43.9); Red Blood Count 3.23 M/mm3 (4.6-6.2); White Blood Count 7.5 K/mm3 (4.4-11.0)
== END ==
PROVIDERS: PCP Family Medicine Geriatric Medicine; Referring Provider Family Medicine Geriatric Medicine; Visit Provider Family Medicine Geriatric Medicine
DX: D64.9 Anemia, unspecified (principal)
CPT/HCPCS: 36415; 85025

== ENCOUNTER 2020-02-12 13:42 | Emergency (ER) | payer MEDICARE, SELFPAY ==
[2020-02-12 13:44] VITALS: BP 168/109; PULSE 86; RESP 16; TEMP 36.4; O2SAT 99; BMI 23.6
--- NOTE | 2020-02-12 14:14 | ED.DCSUM_ITS ---
- ER Visit Summary Date of Service: 02/12/20 Chief Complaint: Return for nasal packing removal History of Present Illness: The patient is a 79 M who is nosebleed on 02/05 and a right-sided nasal pack placed. Is done well since that time. He is on aspirin for known coronary disease. This was a follow-up with ENT today who referred him back to the hospital because of him being Covid positive. He denies any other complaints. He has had no further bleeding. Patient is not on home O2. Physical Examination: Male no acute distress vital signs stable afebrile. Pulse ox 99% room air no signs hypoxia. H EENT exam is a right anterior pack in the right side of his nose. Left is unremarkable no blood no bleeding. Posterior pharynx no blood or bleeding. Neck nontender. Lungs clear to auscultation. Heart regular rhythm no murmur rate about 85. Abdomen soft nontender. Moving all 4 extremities. No edema. No motor deficits. Neurologically is awake and alert. Test Results: None Emergency Department Course and Treatment: I took the air out of the right sided nasal pack to remove the packing. There is no significant of blood currently. There is no active bleeding. And I reviewed the right side of his nose it is slightly raw over the septum but there is no blood or active bleeding. Treatment Plan: Direct pressure if rebleeds. Vaseline or antibiotic ointment to keep the area moist output heal. Return if worse. Disposition: Discharge Impression: Return for nasal pack removal Status post right anterior nosebleed This note was generated with [employer] dictation software. It may contain incorrect words, spelling, and punctuation that were not noted in review of the chart prior to signing ED Disposition - Plan for ED Patient: Referrals: Mike Palmer Chi, MD [Primary Care Provider] -
--- NOTE | 2020-02-12 14:17 | ED.DEP ---
ED Disposition - Plan for ED Patient: Disposition: Home or Assisted Living Instructions: Nosebleed Referrals: Mike Palmer Chi, MD [Primary Care Provider] - As Needed Additional Instructions: If rebleeds hold direct pressure for 20 to 30 minutes. If unable to get it stopped return. Do not blow your nose very hard it may restart the bleeding. Apply Vaseline or antibiotic ointment next several days to help keep it moist and help it heal.
== END 2020-02-12 14:32 | disposition home or self-care (01) ==
LOC: ED 14:27
PROVIDERS: Emergency Provider Emergency Medicine; PCP Family Medicine Geriatric Medicine
DX: Z46.89 Encounter for fitting and adjustment of other specified devices (principal); U07.1 COVID-19; I25.10 Atherosclerotic heart disease of native coronary artery without angina pectoris
CPT/HCPCS: 99282

== ENCOUNTER → 2020-03-10 10:32 | Outpatient (CLI) | payer MEDICARE, SELFPAY ==
[2020-02-12 13:44] VITALS: BMI 23.6
[2020-03-10 11:30] LABS: Hematocrit 40.6 % (40-54); Hemoglobin 12.9 g/dL (13.0-16.5)
== END ==
PROVIDERS: PCP Family Medicine Geriatric Medicine; Visit Provider Family Medicine Geriatric Medicine
DX: D64.9 Anemia, unspecified (principal)
CPT/HCPCS: 36415; 85014; 85018

== ENCOUNTER → 2020-04-17 16:12 | Outpatient (CLI) | payer MEDICARE, SELFPAY ==
[2020-04-17 14:54] VITALS: BMI 25.4
--- NOTE | 2020-04-17 16:18 | RAD_ITS ---
STUDY: X-RAY CHEST REASON FOR EXAM: Male, 79 years old. COUGH AND SOB FOR A COUPLE MONTHS TECHNIQUE: Frontal and lateral views of the chest. COMPARISON: 07/24/2011 FINDINGS: Sternotomy wires and mediastinal clips. bilateral interstitial infiltrates. There is no demonstrated pleural abnormality. Normal size heart. Normal mediastinum and hortencia. Normal visualized pulmonary arteries. Normal visualized aortic arch and descending thoracic aorta. Normal visualized thoracic spine. Normal visualized ribs, clavicles, and shoulders. There is no demonstrated abnormality of the visualized soft tissue structures of the upper abdomen. RAD/Chest PA and Lateral IMPRESSION: Bilateral interstitial infiltrates Electronically Signed: Graham Bennett MD at 22:00 EST , Service support ,
[2020-04-17 17:00] LABS: Absolute Lymphocyte Count 0.84 X10^3/uL (0.83-4.51); Absolute Neutrophil Count 8.6 X10^3/uL (2.0-7.7); Basophil# 0.04 X10^3/uL; Basophil% 0.4 % (0-1); Eosinophil# 0.01 X10^3/uL; Eosinophils% 0.1 % (0-5); Hematocrit 41.9 % (40-54); Hemoglobin 13.6 g/dL (13.0-16.5); Lymphocyte # 0.84 X10^3/ul (4.0); Lymphocyte % 7.8 % (19-41); Mean Corp Hgb Conc 32.5 g/dL (32-36); Mean Corpuscular Hgb 30.6 pg (27.0-32.0); Mean Corpuscular Volume 94.2 fL (80-94); Mean Platelet Vol. 9.3 fl (6.2-12.0); Monocyte# 1.16 X10^3/uL; Monocyte% 10.8 % (0-10); NRBC Flagged by Analyzer 0 % (0-5); Neutrophil # 8.63 X10^3/uL (2.7-7.7); Neutrophil % 80.5 % (47-70); Platelet Count 223 K/mm3 (150-450); RBC Distribution Width CV 14.1 % (11.6-14.6); RBC Distribution Width SD 49.4 fl (35.1-43.9); Red Blood Count 4.45 M/mm3 (4.6-6.2); White Blood Count 10.7 K/mm3 (4.4-11.0)
[2020-04-17 17:12] LABS: International Normalized Ratio 1.1
[2020-04-17 17:37] LABS: Anion Gap 5 (5-15); BUN 13 mg/dL (7-18); BUN/Creat Ratio 9.8 RATIO (10-20); Calcium,Total 9.1 mg/dL (8.5-10.1); Chloride 101 mmol/L (98-107); Creatinine, Serum 1.32 mg/dL (0.70-1.30); EST Glomerular Filtration Rate 56 mL/min (>60); Est Glom Filt Rate - Afr Amer 67 mL/min (>60); Glucose 104 mg/dL (74-106); Magnesium 2.2 mg/dL (1.6-2.6); Potassium 4.1 mmol/L (3.5-5.1); Sodium Level 133 mmol/L (136-145)
[2020-04-17 17:38] LABS: BNP,B-Type NATRIURETIC PEPTIDE 163.6 pg/mL (0-100)
== END ==
LOC: RAD 16:14
PROVIDERS: PCP Family Medicine Geriatric Medicine; Referring Provider Nurse Practitioner Family; Visit Provider Nurse Practitioner Family
DX: I25.10 Atherosclerotic heart disease of native coronary artery without angina pectoris (principal); Z95.1 Presence of aortocoronary bypass graft; E78.2 Mixed hyperlipidemia; I10 Essential (primary) hypertension; R07.9 Chest pain, unspecified; R06.00 Dyspnea, unspecified; R05 Cough
CPT/HCPCS: 36415; 71046; 80048; 83735; 83880; 85025; 85610

== ENCOUNTER → 2020-04-18 14:45 | Outpatient (CLI) | payer MEDICARE, SELFPAY ==
[2020-04-17 14:54] VITALS: BMI 25.4
[2020-04-18 15:03] LABS: Absolute Lymphocyte Count 1.16 X10^3/uL (0.83-4.51); Absolute Neutrophil Count 7.3 X10^3/uL (2.0-7.7); Basophil# 0.03 X10^3/uL; Basophil% 0.3 % (0-1); Eosinophil# 0.01 X10^3/uL; Eosinophils% 0.1 % (0-5); Hematocrit 40.3 % (40-54); Hemoglobin 13.4 g/dL (13.0-16.5); Lymphocyte # 1.16 X10^3/ul (4.0); Lymphocyte % 11.9 % (19-41); Mean Corp Hgb Conc 33.3 g/dL (32-36); Mean Corpuscular Hgb 31.3 pg (27.0-32.0); Mean Corpuscular Volume 94.2 fL (80-94); Mean Platelet Vol. 8.9 fl (6.2-12.0); Monocyte# 1.11 X10^3/uL; Monocyte% 11.4 % (0-10); NRBC Flagged by Analyzer 0 % (0-5); Neutrophil # 7.34 X10^3/uL (2.7-7.7); Neutrophil % 75.7 % (47-70); Platelet Count 189 K/mm3 (150-450); RBC Distribution Width CV 14.3 % (11.6-14.6); RBC Distribution Width SD 49.5 fl (35.1-43.9); Red Blood Count 4.28 M/mm3 (4.6-6.2); White Blood Count 9.7 K/mm3 (4.4-11.0)
[2020-04-18 15:55] LABS: Anion Gap 7 (5-15); BUN 17 mg/dL (7-18); BUN/Creat Ratio 12.9 RATIO (10-20); Calcium,Total 9.1 mg/dL (8.5-10.1); Chloride 102 mmol/L (98-107); Creatinine, Serum 1.32 mg/dL (0.70-1.30); EST Glomerular Filtration Rate 56 mL/min (>60); Est Glom Filt Rate - Afr Amer 67 mL/min (>60); Glucose 106 mg/dL (74-106); Potassium 4.1 mmol/L (3.5-5.1); Sodium Level 136 mmol/L (136-145)
== END ==
PROVIDERS: PCP Family Medicine Geriatric Medicine; Referring Provider Family Medicine Geriatric Medicine; Visit Provider Family Medicine Geriatric Medicine
DX: R06.02 Shortness of breath (principal)
CPT/HCPCS: 36415; 80048; 85025

== ENCOUNTER → 2020-05-02 10:21 | Outpatient (CLI) | payer MEDICARE, SELFPAY ==
[2019-10-18 14:12] VITALS: BMI 26.6
[2020-04-17 14:54] VITALS: BMI 25.4
== END ==
LOC: MTDU 10:21
PROVIDERS: PCP Family Medicine Geriatric Medicine; Referring Provider Family Medicine Geriatric Medicine; Visit Provider Family Medicine Geriatric Medicine
DX: R06.89 Other abnormalities of breathing (principal)
CPT/HCPCS: 87633; 87635; C9803; U0005; U0003

== ENCOUNTER → 2020-05-12 13:04 | Outpatient (CLI) | payer MEDICARE, SELFPAY ==
[2020-05-02 14:46] VITALS: BMI 25.4
[2020-05-12 16:49] LABS: Absolute Lymphocyte Count 1.14 X10^3/uL (0.83-4.51); Absolute Neutrophil Count 5.9 X10^3/uL (2.0-7.7); Basophil# 0.03 X10^3/uL; Basophil% 0.4 % (0-1); Eosinophil# 0.06 X10^3/uL; Eosinophils% 0.8 % (0-5); Hematocrit 42.5 % (40-54); Hemoglobin 13.4 g/dL (13.0-16.5); Lymphocyte # 1.14 X10^3/ul (4.0); Lymphocyte % 14.3 % (19-41); Mean Corp Hgb Conc 31.5 g/dL (32-36); Mean Corpuscular Hgb 30.3 pg (27.0-32.0); Mean Corpuscular Volume 96.2 fL (80-94); Mean Platelet Vol. 9.7 fl (6.2-12.0); Monocyte# 0.82 X10^3/uL; Monocyte% 10.3 % (0-10); NRBC Flagged by Analyzer 0 % (0-5); Neutrophil # 5.87 X10^3/uL (2.7-7.7); Neutrophil % 73.8 % (47-70); Platelet Count 159 K/mm3 (150-450); RBC Distribution Width CV 15.1 % (11.6-14.6); RBC Distribution Width SD 53.6 fl (35.1-43.9); Red Blood Count 4.42 M/mm3 (4.6-6.2)
[2020-05-12 17:06] LABS: Vitamin D,25 Hydroxy 15.2 ng/mL
[2020-05-12 17:17] LABS: ALB/GLOB Ratio 1.1 RATIO (0.9-2.4); AST(SGOT) 12 U/L (15-37); Alanine Aminotransfer ALT/SGPT 26 U/L (16-61); Albumin, Serum 3.5 g/dL (3.2-5.0); Alkaline Phosphatase 66 U/L (45-117); Anion Gap 7 (5-15); BUN 20 mg/dL (7-18); BUN/Creat Ratio 18.3 RATIO (10-20); Calcium,Total 9.1 mg/dL (8.5-10.1); Chloride 101 mmol/L (98-107); Creatinine, Serum 1.09 mg/dL (0.70-1.30); EST Glomerular Filtration Rate 69 mL/min (>60); Est Glom Filt Rate - Afr Amer 84 mL/min (>60); Globulin 3.3 g/dL (2.2-4.2); Glucose 89 mg/dL (74-106); Potassium 4.4 mmol/L (3.5-5.1); Protein, Total 6.8 g/dL (6.4-8.2); Sodium Level 135 mmol/L (136-145); Thyroid Stim Hormone (TSH) 4.25 uIU/mL (0.358-3.74); Uric Acid 6.5 mg/dL (3.5-7.2)
== END ==
LOC: POLAB3 13:05
PROVIDERS: PCP Family Medicine Geriatric Medicine; Visit Provider Family Medicine Geriatric Medicine
DX: E55.9 Vitamin D deficiency, unspecified (principal); I10 Essential (primary) hypertension; M10.9 Gout, unspecified
CPT/HCPCS: 36415; 80053; 82306; 84443; 84550; 85025

== ENCOUNTER → 2020-05-14 | Outpatient (CLI) | payer MEDICARE, SELFPAY ==
[2020-05-02 14:46] VITALS: BMI 25.4
== END | disposition home or self-care (01) ==
LOC: LABSPEC 11:20
PROVIDERS: PCP Family Medicine Geriatric Medicine; Visit Provider Family Medicine Geriatric Medicine
DX: N39.0 Urinary tract infection, site not specified (principal)
CPT/HCPCS: 87086; 87088

== ENCOUNTER → 2020-06-26 10:09 | Outpatient (CLI) | payer MEDICARE, SELFPAY ==
[2020-05-02 14:46] VITALS: BMI 25.4
[2020-06-26 12:31] LABS: Thyroid Stim Hormone (TSH) 0.98 uIU/mL (0.358-3.74)
== END ==
PROVIDERS: PCP Family Medicine Geriatric Medicine; Visit Provider Family Medicine Geriatric Medicine
DX: E03.9 Hypothyroidism, unspecified (principal)
CPT/HCPCS: 36415; 84443

== ENCOUNTER → 2020-12-01 15:35 | Outpatient (CLI) | payer MEDICARE, SELFPAY ==
[2020-12-01 17:04] LABS: Absolute Lymphocyte Count 1.15 X10^3/uL (0.83-4.51); Absolute Neutrophil Count 3.3 X10^3/uL (2.0-7.7); Basophil# 0.05 X10^3/uL; Eosinophil# 0.14 X10^3/uL; Eosinophils% 2.7 % (0-5); Hemoglobin 13.5 g/dL (13.0-16.5); Lymphocyte # 1.15 X10^3/ul (0.83-4.51); Lymphocyte % 21.9 % (19-41); Mean Corp Hgb Conc 32.1 g/dL (32-36); Mean Corpuscular Hgb 31.6 pg (27.0-32.0); Mean Corpuscular Volume 98.4 fL (80-94); Mean Platelet Vol. 10.6 fl (6.2-12.0); Monocyte# 0.57 X10^3/uL; Monocyte% 10.8 % (0-10); NRBC Flagged by Analyzer 0 % (0-5); Neutrophil # 3.34 X10^3/uL (2.7-7.7); Neutrophil % 63.4 % (47-70); Platelet Count 181 K/mm3 (150-450); RBC Distribution Width SD 46.8 fl (35.1-43.9); Red Blood Count 4.27 M/mm3 (4.6-6.2); White Blood Count 5.3 K/mm3 (4.4-11.0)
[2020-12-01 17:50] LABS: Vitamin D,25 Hydroxy 46.8 ng/mL
[2020-12-01 18:06] LABS: ALB/GLOB Ratio 1.2 RATIO (0.9-2.4); AST(SGOT) 22 U/L (15-37); Alanine Aminotransfer ALT/SGPT 33 U/L (16-61); Albumin, Serum 3.9 g/dL (3.2-5.0); Alkaline Phosphatase 82 U/L (45-117); Anion Gap 6 (5-15); BUN 16 mg/dL (7-18); BUN/Creat Ratio 13.1 RATIO (10-20); Calcium,Total 8.8 mg/dL (8.5-10.1); Chloride 105 mmol/L (98-107); Creatinine, Serum 1.22 mg/dL (0.70-1.30); EST Glomerular Filtration Rate 61 mL/min (>60); Est Glom Filt Rate - Afr Amer 74 mL/min (>60); Globulin 3.3 g/dL (2.2-4.2); Glucose 85 mg/dL (74-106); Potassium 4.1 mmol/L (3.5-5.1); Protein, Total 7.2 g/dL (6.4-8.2); Sodium Level 138 mmol/L (136-145); Thyroid Stim Hormone (TSH) 1.27 uIU/mL (0.358-3.74); Uric Acid 8.7 mg/dL (3.5-7.2)
== END ==
LOC: LAB 15:36
PROVIDERS: PCP Family Medicine Geriatric Medicine; Referring Provider Family Medicine Geriatric Medicine; Visit Provider Family Medicine Geriatric Medicine
DX: I10 Essential (primary) hypertension (principal); E55.9 Vitamin D deficiency, unspecified; M10.9 Gout, unspecified
CPT/HCPCS: 36415; 80053; 82306; 84443; 84550; 85025

== ENCOUNTER → 2021-03-03 06:18 | Outpatient (CLI) | payer MEDICARE, SELFPAY ==
--- NOTE | 2021-03-03 08:12 | STRESSREP_ITS ---
Stress Test Report Date: 03-03-2021 Procedure: Pharmacologic stress nuclear imaging study Indications: Chest pain; CAD Consent: Per the patient Procedure: The patient underwent pharmacologic (Regadenoson 0.4mg ) evaluation with a peak heart rate of 70 beats per minute (49 %predicted maximal heart rate) and a peak blood pressure of 150/98 mmHg. The baseline ECG demonstrated sinus bradycardia. The peak pharmacologic ECG demonstrated no obvious ECG changes. There were no cardiac dysrhythmias pretest, during pharmacologic infusion, or recovery. There was no complaint of chest discomfort during infusion or recovery. The examination was discontinued secondary to completion of protocol. Impression: 1. Pharmacologic (Regadenoson) evaluation 2. Peak pharmacologic ECG with no obvious ECG changes. 3. There were no cardiac dysrhythmias pretest, during pharmacologic infusion, or recovery. 4. Nuclear images pending Myocardial perfusion imaging study: Technique: The patient was injected with 11.3 millicuries of technetium 99m Cardiolite and subsequently rest SPECT Cardiolite nuclear imaging was obtained in the horizontal long, vertical long, and short axis views. The patient underwent pharmacologic (Regadenoson) evaluation with a peak heart rate of 70 beats per minute (49 % percent predicted maximal heart rate) and a peak blood pressure of 150/98 mmHg. The patient was injected with 32.9 millicuries of technetium 99m Cardiolite and subsequently stress SPECT Cardiolite nuclear imaging was obtained in the horizontal long, vertical long, and short axis views. A gated Cardiolite study at peak stress was obtained. Interpretation: Rest and stress SPECT Cardiolite nuclear imaging status post realignment, normalization, and attenuation correction demonstrate relative uniform tracer uptake and myocardial perfusion appearing within normal limits. There is end systolic thickening and brightening. The gated Cardiolite study demonstrates myocardial thickening and inward wall motion. The reported LVEF is 77 %. Impression: 1. Rest and stress SPECT Cardiolite nuclear imaging demonstrate relative uniform tracer uptake and myocardial perfusion appearing within normal limits. 2. The gated Cardiolite study reports an LVEF of 77 %. This note was generated with [employer] software. It may contain incorrect words, spelling, and punctuation that were not noted in checking the note before signing.
== END ==
LOC: CVS 06:21
PROVIDERS: PCP Family Medicine Geriatric Medicine; Referring Provider Internal Medicine Cardiovascular Disease; Visit Provider Internal Medicine Cardiovascular Disease
DX: I25.10 Atherosclerotic heart disease of native coronary artery without angina pectoris (principal); I10 Essential (primary) hypertension; Z95.1 Presence of aortocoronary bypass graft
CPT/HCPCS: 78452; 93017; A9500; A4216; J2785

== ENCOUNTER 2021-05-13 13:20 | Outpatient (CLI) | payer MEDICARE, SELFPAY ==
[2021-05-13 17:47] LABS: Vitamin D,25 Hydroxy 23.8 ng/mL
[2021-05-13 17:49] LABS: AST(SGOT) 16 U/L (15-37); Alanine Aminotransfer ALT/SGPT 25 U/L (16-61); Albumin, Serum 3.6 g/dL (3.2-5.0); Alkaline Phosphatase 88 U/L (45-117); Anion Gap 6 (5-15); BUN 23 mg/dL (7-18); BUN/Creat Ratio 18.7 RATIO (10-20); Calcium,Total 9.1 mg/dL (8.5-10.1); Chloride 105 mmol/L (98-107); Creatinine, Serum 1.23 mg/dL (0.70-1.30); EST Glomerular Filtration Rate 60 mL/min (>60); Est Glom Filt Rate - Afr Amer 73 mL/min (>60); Globulin 3.6 g/dL (2.2-4.2); Glucose 75 mg/dL (74-106); Potassium 4.2 mmol/L (3.5-5.1); Protein, Total 7.2 g/dL (6.4-8.2); Sodium Level 138 mmol/L (136-145); Thyroid Stim Hormone (TSH) 0.66 uIU/mL (0.358-3.74)
[2021-05-13 18:08] LABS: Absolute Lymphocyte Count 1.13 X10^3/uL (0.83-4.51); Absolute Neutrophil Count 4.5 X10^3/uL (2.0-7.7); Basophil# 0.03 X10^3/uL; Basophil% 0.5 % (0-1); Eosinophil# 0.04 X10^3/uL; Eosinophils% 0.6 % (0-5); Hematocrit 38.6 % (40-54); Hemoglobin 13.2 g/dL (13.0-16.5); Lymphocyte # 1.13 X10^3/ul (0.83-4.51); Lymphocyte % 17.7 % (19-41); Mean Corp Hgb Conc 34.2 g/dL (32-36); Mean Corpuscular Hgb 32.8 pg (27.0-32.0); Mean Corpuscular Volume 95.8 fL (80-94); Mean Platelet Vol. 10.3 fl (6.2-12.0); Monocyte# 0.64 X10^3/uL; NRBC Flagged by Analyzer 0 % (0-5); Neutrophil # 4.51 X10^3/uL (2.7-7.7); Neutrophil % 70.9 % (47-70); Platelet Count 177 K/mm3 (150-450); RBC Distribution Width CV 14.9 % (11.6-14.6); RBC Distribution Width SD 52.5 fl (35.1-43.9); Red Blood Count 4.03 M/mm3 (4.6-6.2); White Blood Count 6.4 K/mm3 (4.4-11.0)
== END 2021-05-13 23:59 | disposition home or self-care (01) ==
LOC: POLAB3 13:21
PROVIDERS: PCP Family Medicine Geriatric Medicine; Visit Provider Family Medicine Geriatric Medicine
DX: M10.9 Gout, unspecified (principal); I10 Essential (primary) hypertension; E55.9 Vitamin D deficiency, unspecified
CPT/HCPCS: 36415; 80053; 82306; 84443; 84550; 85025

== ENCOUNTER → 2021-11-25 | Outpatient (CLI) | payer MEDICARE, SELFPAY ==
[2021-11-25 15:29] LABS: Absolute Lymphocyte Count 0.98 X10^3/uL (0.83-4.51); Absolute Neutrophil Count 5.3 X10^3/uL (2.0-7.7); Basophil# 0.03 X10^3/uL; Basophil% 0.4 % (0-1); Eosinophil# 0.09 X10^3/uL; Eosinophils% 1.2 % (0-5); Hematocrit 37.6 % (40-54); Hemoglobin 12.6 g/dL (13.0-16.5); Lymphocyte # 0.98 X10^3/ul (0.83-4.51); Lymphocyte % 13.5 % (19-41); Mean Corp Hgb Conc 33.5 g/dL (32-36); Mean Corpuscular Hgb 32.1 pg (27.0-32.0); Mean Corpuscular Volume 95.9 fL (80-94); NRBC Flagged by Analyzer 0 % (0-5); Neutrophil # 5.34 X10^3/uL (2.7-7.7); Neutrophil % 73.6 % (47-70); Platelet Count 183 K/mm3 (150-450); RBC Distribution Width CV 14.2 % (11.6-14.6); RBC Distribution Width SD 49.9 fl (35.1-43.9); Red Blood Count 3.92 M/mm3 (4.6-6.2); White Blood Count 7.3 K/mm3 (4.4-11.0)
[2021-11-25 15:42] LABS: Vitamin D,25 Hydroxy 39.6 ng/mL
[2021-11-25 15:56] LABS: AST(SGOT) 15 U/L (15-37); Alanine Aminotransfer ALT/SGPT 23 U/L (16-61); Albumin, Serum 3.5 g/dL (3.2-5.0); Alkaline Phosphatase 87 U/L (45-117); Anion Gap 6 (5-15); BUN 26 mg/dL (7-18); BUN/Creat Ratio 20.8 RATIO (10-20); Calcium,Total 8.9 mg/dL (8.5-10.1); Chloride 104 mmol/L (98-107); Creatinine, Serum 1.25 mg/dL (0.70-1.30); EST Glomerular Filtration Rate 59 mL/min (>60); Est Glom Filt Rate - Afr Amer 71 mL/min (>60); Globulin 3.5 g/dL (2.2-4.2); Glucose 87 mg/dL (74-106); Potassium 4.5 mmol/L (3.5-5.1); Sodium Level 137 mmol/L (136-145); Thyroid Stim Hormone (TSH) 0.63 uIU/mL (0.358-3.74); Uric Acid 7.4 mg/dL (3.5-7.2)
== END | disposition home or self-care (01) ==
LOC: POLAB3 09:18 → LABSPEC 14:04
PROVIDERS: PCP Family Medicine Geriatric Medicine; Visit Provider Family Medicine Geriatric Medicine
DX: I10 Essential (primary) hypertension (principal); E55.9 Vitamin D deficiency, unspecified; M10.9 Gout, unspecified
CPT/HCPCS: 36415; 80053; 82306; 84443; 84550; 85025

== ENCOUNTER → 2022-05-14 | Outpatient (CLI) | payer MEDICARE, SELFPAY ==
[2022-05-14 10:49] LABS: Absolute Lymphocyte Count 0.91 X10^3/uL (0.83-4.51); Absolute Neutrophil Count 3.8 X10^3/uL (2.0-7.7); Basophil# 0.02 X10^3/uL; Basophil% 0.4 % (0-1); Eosinophil# 0.11 X10^3/uL; Hematocrit 38.7 % (40-54); Hemoglobin 12.9 g/dL (13.0-16.5); Lymphocyte # 0.91 X10^3/ul (0.83-4.51); Lymphocyte % 16.4 % (19-41); Mean Corp Hgb Conc 33.3 g/dL (32-36); Mean Corpuscular Hgb 31.5 pg (27.0-32.0); Mean Corpuscular Volume 94.4 fL (80-94); Mean Platelet Vol. 9.9 fl (6.2-12.0); Monocyte# 0.68 X10^3/uL; Monocyte% 12.3 % (0-10); NRBC Flagged by Analyzer 0 % (0-5); Neutrophil # 3.79 X10^3/uL (2.7-7.7); Neutrophil % 68.2 % (47-70); Platelet Count 181 K/mm3 (150-450); RBC Distribution Width CV 13.4 % (11.6-14.6); White Blood Count 5.6 K/mm3 (4.4-11.0)
[2022-05-14 11:15] LABS: Vitamin D,25 Hydroxy 31.8 ng/mL
[2022-05-14 11:22] LABS: AST(SGOT) 20 U/L (15-37); Alanine Aminotransfer ALT/SGPT 23 U/L (16-61); Albumin, Serum 3.6 g/dL (3.2-5.0); Alkaline Phosphatase 83 U/L (45-117); Anion Gap 5 (5-15); BUN 23 mg/dL (7-18); BUN/Creat Ratio 17.6 RATIO (10-20); Calcium,Total 8.7 mg/dL (8.5-10.1); Chloride 103 mmol/L (98-107); Creatinine, Serum 1.31 mg/dL (0.70-1.30); EST Glomerular Filtration Rate 56 mL/min (>60); Est Glom Filt Rate - Afr Amer 68 mL/min (>60); Globulin 3.5 g/dL (2.2-4.2); Glucose 95 mg/dL (74-106); Potassium 4.5 mmol/L (3.5-5.1); Protein, Total 7.1 g/dL (6.4-8.2); Sodium Level 136 mmol/L (136-145); Thyroid Stim Hormone (TSH) 1.46 uIU/mL (0.358-3.74); Uric Acid 6.5 mg/dL (3.5-7.2)
== END | disposition home or self-care (01) ==
LOC: POLAB3 10:26
PROVIDERS: PCP Family Medicine Geriatric Medicine; Visit Provider Family Medicine Geriatric Medicine
DX: I10 Essential (primary) hypertension (principal); M10.9 Gout, unspecified; E55.9 Vitamin D deficiency, unspecified
CPT/HCPCS: 36415; 80053; 82306; 84443; 84550; 85025

== ENCOUNTER → 2022-11-11 | Outpatient (CLI) | payer MEDICARE, SELFPAY ==
[2022-11-11 10:30] LABS: Absolute Neutrophil Count 3.8 X10^3/uL (2.0-7.7); Basophil# 0.02 X10^3/uL; Basophil% 0.4 % (0-1); Eosinophil# 0.12 X10^3/uL; Eosinophils% 2.2 % (0-5); Hematocrit 39.7 % (40-54); Hemoglobin 12.7 g/dL (13.0-16.5); Lymphocyte % 18.2 % (19-41); Mean Corpuscular Hgb 31.9 pg (27.0-32.0); Mean Corpuscular Volume 99.7 fL (80-94); Mean Platelet Vol. 10.3 fl (6.2-12.0); Monocyte# 0.56 X10^3/uL; Monocyte% 10.2 % (0-10); NRBC Flagged by Analyzer 0 % (0-5); Neutrophil # 3.76 X10^3/uL (2.7-7.7); Neutrophil % 68.5 % (47-70); Platelet Count 163 K/mm3 (150-450); RBC Distribution Width CV 14.3 % (11.6-14.6); RBC Distribution Width SD 51.8 fl (35.1-43.9); Red Blood Count 3.98 M/mm3 (4.6-6.2); White Blood Count 5.5 K/mm3 (4.4-11.0)
[2022-11-11 11:03] LABS: Vitamin D,25 Hydroxy 41.6 ng/mL
[2022-11-11 11:27] LABS: AST(SGOT) 31 U/L (15-37); Alanine Aminotransfer ALT/SGPT 36 U/L (16-61); Albumin, Serum 3.6 g/dL (3.2-5.0); Alkaline Phosphatase 85 U/L (45-117); Anion Gap 3 (5-15); BUN 12 mg/dL (7-18); BUN/Creat Ratio 9.6 RATIO (10-20); Calcium,Total 9.1 mg/dL (8.5-10.1); Chloride 104 mmol/L (98-107); Creatinine, Serum 1.25 mg/dL (0.70-1.30); EST Glomerular Filtration Rate 59 mL/min (>60); Est Glom Filt Rate - Afr Amer 71 mL/min (>60); Globulin 3.5 g/dL (2.2-4.2); Glucose 109 mg/dL (74-106); Protein, Total 7.1 g/dL (6.4-8.2); Sodium Level 135 mmol/L (136-145); Thyroid Stim Hormone (TSH) 0.77 uIU/mL (0.358-3.74); Uric Acid 3.5 mg/dL (3.5-7.2)
== END | disposition home or self-care (01) ==
LOC: POLAB3 10:10
PROVIDERS: PCP Family Medicine Geriatric Medicine; Visit Provider Family Medicine Geriatric Medicine
DX: I10 Essential (primary) hypertension (principal); M10.9 Gout, unspecified; E55.9 Vitamin D deficiency, unspecified
CPT/HCPCS: 36415; 80053; 82306; 84443; 84550; 85025

== ENCOUNTER 2022-11-29 08:55 | Emergency (ER) | payer MEDICARE, SELFPAY ==
[2022-11-29 08:56] VITALS: PULSE 74; RESP 16; TEMP 36.3; O2SAT 96; BMI 28.5
[2022-11-29 09:02] VITALS: BP 190/98; PULSE 71; RESP 16; TEMP 36.3; O2SAT 98
--- NOTE | 2022-11-29 09:09 | EX.ED.DYSGE1 ---
HPI History of Present Illness Chief Complaint: Abd Pain Informant: patient and EMS Narrative Narrative: 82-year-old male presenting to the emergency room with a chief complaint of abdominal pain. Patient states that late last night into this morning he developed a left lower abdominal pain which radiates across the low back. He states he feels it into the left inguinal region. He denies any urinary symptoms but does note a history of kidney stones once before. He states he has had 4 bowel movements this morning with a little bit of diarrhea. He denies any blood or black stool. He states he had a colonoscopy many years ago but none since. He does not remember the results of the colonoscopy but does not believe there is anything wrong with it. He states that he had gallstones removed but does not believe that he had his gallbladder removed (review of the patient chart shows that he has reported a prior cholecystectomy). He has had prior open heart surgery. He was able to take his medications today and a small amount of coffee but nothing to eat. He states he did have dry heaves this morning. Reportedly the pain is a 7 out of 10. He states it does not wax and wane. He states it moves around. When asked where it moves around to he points to the left lower abdomen and states it radiates over towards the right side at times. No reported fevers. He does not recall having this pain before. He does not recall a history of diverticulosis. The back pain is nonradiating. There is no pain in the back with movement. There are no leg symptoms. He denies any chest pain or dyspnea. Prehospital EKG performed by EMS demonstrates a sinus rhythm without evidence of acute injury. [facility] Medical History (Updated 11/29/22 @ 11:[address] Celso Harmon, ) Accident due to mechanical fall without injury Atherosclerotic heart disease of [place] coronary artery without angina pectoris Contusion of left shoulder COVID-19 (~02/06/20) Epistaxis Essential hypertension Forehead abrasion Gout history of severe headaches Mixed hyperlipidemia Osteoarthritis Shoulder pain Home Medications atorvastatin 40 mg tablet 40 mg PO QHS 06/21/19 [History Last Taken Unknown] aspirin 81 mg tablet,delayed release 81 mg PO DAILY 04/17/20 [History Last Taken Unknown] allopurinol 300 mg tablet 300 mg PO DAILY 06/04/22 [History Last Taken Unknown] citalopram 10 mg tablet 10 mg PO DAILY 06/04/22 [History Last Taken Unknown] levothyroxine 25 mcg tablet 50 mcg PO DAILY 06/04/22 [History Last Taken Unknown] metoprolol tartrate 25 mg tablet 12.5 mg PO DAILY 06/04/22 [History Last Taken Unknown] nitroglycerin 0.4 mg sublingual tablet 0.4 mg sublingual Q5-15M PRN chest pain #25 tabs 06/04/22 [Rx Last Taken Unknown] ondansetron 4 mg disintegrating tablet 4 mg PO Q8H PRN PRN Nausea #10 tabs 11/29/22 [Rx Last Taken Unknown] oxycodone-acetaminophen 5 mg-325 mg tablet 1 tab PO Q6H PRN PRN Pain 3 days #12 TABLETS 11/29/22 [Rx Last Taken Unknown] Allergy/AdvReac Type Severity Reaction Status Date / Time No Known Allergies Allergy Verified 06/04/22 10:58 Family History Mother Cancer Sister Cancer Brother Myocardial infarction Brother Myocardial infarction Surgical History History of arthroscopy of left knee History of cholecystectomy History of coronary artery bypass surgery (~10/24/09) Social History Smoking Status: Former smoker alcohol intake: never substance use type: does not use caffeine: Yes Type: coffee Number of servings: 1 ROS ROS ED Constitutional Constitutional ED: Denies chills or weight loss Eyes Eyes: Denies change in vision or diplopia ENT ENT ED: Denies ear pain, rhinorrhea or sore throat Cardiovascular Cardiovascular: Denies chest pain, orthopnea, palpitations or racing heartbeat Respiratory/Chest Respiratory/Chest: Denies cough, dyspnea or orthopnea Gastrointestinal Gastrointestinal: Reports abdominal pain, diarrhea and nausea; Denies vomiting Genitourinary Genitourinary ED: Denies dysuria, hematuria or urinary frequency Musculoskeletal Musculoskeletal: Reports back pain; Denies arthralgias or myalgias Integumentary Denies abscess or rash Neurologic Neurologic: Denies headache(s) or weakness Psychiatric Psychiatric: Denies anxiety, depression, suicidal ideation or suicidal thoughts Endocrine Endocrinology: Denies polydipsia, polyphagia or polyuria Allergic/Immunologic Allergic/Immunologic ED: Denies mouth swelling, tongue swelling or urticaria EXAM Physical Exam Const Vital Signs: 11/29/22 08:56 11/29/22 09:02 Temperature 97.3 F L 97.3 F L Temperature Source Temporal Temporal Pulse Rate 74 71 Respiratory Rate 16 16 Blood Pressure 190/98 H Blood Pressure Mean 128 Pulse Ox 96 98 Oxygen Delivery Method Room Air Room Air Positive well nourished and well developed General Appearance ED: well developed HEENT Reports normocephalic, head/scalp atraumatic and moist mucous membranes Eyes PERRL and EOMs intact bilaterally Neck no lymphadenopathy, supple and no JVD Resp normal respiratory effort and clear to auscultation bilaterally Cardio regular rate, regular rhythm and no murmurs GI normal to inspection, nondistended, normoactive bowel sounds and non-tender Palpation: soft Narrative: No testicular or epididymal tenderness or swelling. There is no inguinal hernia. There were no rashes present. Back/Spine no CVA tenderness and normal ROM Back/Spine Narrative: No rashes noted Extremity normal to inspection General Extremety ED: Negative for edema General Extremity: Negative for edema Neuro oriented x3 and CN's II-XII intact bilaterally Sensorium / Orientation: alert Motor Exam: strength 5/5 throughout Psych mental status grossly normal Mood & Affect: Negative for depressed or tearful Skin no rashes or lesions noted and no wounds MDM MDM MDM Narrative Medical decision making narrative: IV was established and the patient received pain and nausea medications. White count 10.2 with a hemoglobin of 13.2. Creatinine elevated 1.47. Urinalysis demonstrates 5-10 white cells 0-5 red cells rare bacteria. Negative nitrates. He has no dysuria or frequency. CT of the abdomen pelvis demonstrates a mid ureteral 3.5 mm kidney stone on the left side. There is a 3.9 x 4.5 cm left renal mass. I discussed this with the patient and he will need further urologic evaluation for this. I will write for the patient to have Percocet and Zofran at home. He is to continue to hydrate. He understands that if his pain worsens he may need to return to the emergency department. Lab Data Attestation: I reviewed the patient's lab results. Labs: Laboratory Results - last 24 hr 11/29/22 11/29/22 09:05 09:45 WBC 10.2 RBC 4.03 L Hgb 13.2 Hct 39.6 L MCV 98.3 H MCH 32.8 H MCHC 33.3 RDW Std Deviation 51.8 H RDW Coeff of Fiona 14.3 Plt Count 183 MPV 10.3 Immature Gran % (Auto) 0.500 Neut % (Auto) 87.1 H Lymph % (Auto) 7.[address] [facility] % (Auto) 4.7 Eos % (Auto) 0.4 Baso % (Auto) 0.3 Absolute Neuts (auto) 8.9 H Absolute Lymphs (auto) 0.71 L Nucleated RBC % 0 Sodium 134 L Potassium 4.3 Chloride 103 Carbon Dioxide 24.0 Anion Gap 7 BUN 14 Creatinine 1.47 H Estim Creat Clear Calc 40.69 Est GFR (MDRD) Af Amer 59 L Est GFR (MDRD) Non-Af 49 L BUN/Creatinine Ratio 9.5 L Glucose 154 H Calcium 8.8 Total Bilirubin 0.60 AST 17 ALT 22 Alkaline Phosphatase 91 Total Protein 7.5 Albumin 4.0 Globulin 3.5 Albumin/Globulin Ratio 1.1 Urine Color Yellow Urine Clarity Sl. Cloudy Urine pH 6.5 Ur Specific [place] 1.015 Urine Protein 100 H Urine Glucose (UA) Normal Urine Ketones Negative Urine Occult Blood 50 H Urine Nitrite Negative Urine Bilirubin Negative Urine Urobilinogen Normal Ur Leukocyte Esterase 100 H Urine RBC 0-5 SEEN Urine WBC 5-10 SEEN Ur Squamous Epith Cells 0-5 SEEN Urine Bacteria RARE Urine Mucus RARE Radiography Diagnostic Testing: Clinical Impression(s) from Imaging Studies Abdomen/Pelvis CT 11/29/22 10:13 IMPRESSION: New 3.9 cm x 4.5 some heterogeneous solid mass in the upper medial portion of the right kidney. A neoplastic process should BE ruled out. Mild left hydronephrosis and hydroureter due to a 3.5 mm calculus in the midportion of the left ureter. Electronically Signed: Lavelle Del Valle MD at 10:51 EDT , EKG Initial EKG: Attestation: I personally reviewed and interpreted this EKG as follows: Interpretation: Sinus Rhythm Comments: Prehospital EKG performed by EMS demonstrates a sinus rhythm without evidence of acute injury. Discharge Plan Triage Chief Complaint: Abd Pain ED Provider: Celso Harmon Dx/Rx/DC Orders Clinical Impression: Left kidney mass, Abdominal pain, acute, Ureterolithiasis Instructions: ED Kidney Stone w/ Colic Prescriptions: New oxycodone-acetaminophen [oxycodone-acetaminophen] 5-325 mg tablet 1 tab PO Q6H PRN PRN (Reason: Pain) 3 Days Qty: 12 0RF ondansetron [ondansetron] 4 mg tablet,disintegrating 4 mg PO Q8H PRN PRN (Reason: Nausea) Qty: 10 0RF No Action atorvastatin 40 mg tablet 40 mg PO QHS levothyroxine 25 mcg tablet 50 mcg PO DAILY allopurinol 300 mg tablet 300 mg PO DAILY citalopram 10 mg tablet 10 mg PO DAILY metoprolol tartrate 25 mg tablet 12.5 mg PO DAILY nitroglycerin 0.4 mg tablet, sublingual 0.4 mg sublingual Q5-15M PRN (Reason: chest pain) Qty: 25 6RF Rx Instructions: do not exceed 3 doses per episode aspirin 81 mg tablet,delayed release (DR/EC) 81 mg PO DAILY Primary Care Provider: Mike Palmer Chi Referrals: Fab Reza MD [Med Staff - Active Staff] - As soon as possible (For urology evaluation as discussed) Mike Palmer Chi, MD [Primary Care Provider] - Disposition Disposition: Home, Self Care
[2022-11-29] MEDS: 0.9% Normal Saline 1,000 ML 1000 ML IV (09:15)
[2022-11-29] MEDS: Morphine 4 MG/ML Syringe IV (09:16)
[2022-11-29] MEDS: Ondansetron 4 MG/2 ML Vial IV (09:16)
[2022-11-29 09:18] LABS: Absolute Lymphocyte Count 0.71 X10^3/uL (0.83-4.51); Absolute Neutrophil Count 8.9 X10^3/uL (2.0-7.7); Basophil# 0.03 X10^3/uL; Basophil% 0.3 % (0-1); Eosinophil# 0.04 X10^3/uL; Eosinophils% 0.4 % (0-5); Hematocrit 39.6 % (40-54); Hemoglobin 13.2 g/dL (13.0-16.5); Lymphocyte # 0.71 X10^3/ul (0.83-4.51); Mean Corp Hgb Conc 33.3 g/dL (32-36); Mean Corpuscular Hgb 32.8 pg (27.0-32.0); Mean Corpuscular Volume 98.3 fL (80-94); Mean Platelet Vol. 10.3 fl (6.2-12.0); Monocyte# 0.48 X10^3/uL; Monocyte% 4.7 % (0-10); NRBC Flagged by Analyzer 0 % (0-5); Neutrophil # 8.86 X10^3/uL (2.7-7.7); Neutrophil % 87.1 % (47-70); Platelet Count 183 K/mm3 (150-450); RBC Distribution Width CV 14.3 % (11.6-14.6); RBC Distribution Width SD 51.8 fl (35.1-43.9); Red Blood Count 4.03 M/mm3 (4.6-6.2); White Blood Count 10.2 K/mm3 (4.4-11.0)
[2022-11-29 09:33] LABS: ALB/GLOB Ratio 1.1 RATIO (0.9-2.4); AST(SGOT) 17 U/L (15-37); Alanine Aminotransfer ALT/SGPT 22 U/L (16-61); Alkaline Phosphatase 91 U/L (45-117); Anion Gap 7 (5-15); BUN 14 mg/dL (7-18); BUN/Creat Ratio 9.5 RATIO (10-20); Calcium,Total 8.8 mg/dL (8.5-10.1); Chloride 103 mmol/L (98-107); Creatinine, Serum 1.47 mg/dL (0.70-1.30); EST Glomerular Filtration Rate 49 mL/min (>60); Est Glom Filt Rate - Afr Amer 59 mL/min (>60); Estimated Creatinine Clearance 40.69 ml/min; Globulin 3.5 g/dL (2.2-4.2); Glucose 154 mg/dL (74-106); Potassium 4.3 mmol/L (3.5-5.1); Protein, Total 7.5 g/dL (6.4-8.2); Sodium Level 134 mmol/L (136-145)
[2022-11-29 09:50] LABS: Color, Urine Yellow (Yellow); Glucose, Dipstick Normal (Normal); Ketone-Dipstick Negative (Negative); Leukocyte Esterase-Dipstick 100 /ul (Negative); Nitrite-Dipstick Negative (Negative); Occult Blood-Urine 50 /ul (Negative); Protein-Dipstick 100 mg/dl (Negative); Specific Gravity, Urine 1.015 (1.002-1.030); Urine Bilirubin Dipstick Negative (Negative); Urine Clarity Sl. Cloudy (Clear); Urine Urobilinogen Normal (Normal); Urine pH 6.5 (5.0 - 8.0)
[2022-11-29 10:10] LABS: Bacteria RARE /hpf (None Seen); Mucous, Urine RARE /hpf (<or=2+); Red Blood Cells-Urine 0-5 SEEN /hpf (0-5); Squamous Epithelial Cells - UA 0-5 SEEN /hpf (0-5); White Blood Cells 5-10 SEEN /hpf (0-5)
--- NOTE | 2022-11-29 10:13 | CT_ITS ---
STUDY: CT ABDOMEN AND PELVIS WITH CONTRAST REASON FOR EXAM: Male, 82 years old. LLQ abdominal pain RADIATION DOSAGE (If Supplied By Facility): CTDIvol = ( 12.97 ) mGy, DLP = ( 725.86 ) mGycm TECHNIQUE: Transaxial images were obtained from the dome of the diaphragm to the symphysis pubis without oral contrast. IV 100mL Isovue-300 was administered. Sagittal and coronal images were reconstructed. Individualized dose optimization techniques were used for this CT. COMPARISON: Comparison is made with prior study November 14, 2019. FINDINGS: Stable increased markings at the lung bases suggestive of scarring. Calcified pleural plaques. Coronary artery calcification. Prior CABG. Linear calcification of the pericardium overlying the left ventricle. Normal liver. The patient is status post cholecystectomy. There are multiple benign calcified granulomata of the spleen. Normal pancreas. Normal bilateral adrenal glands. There is a new 3.9 cm x 4.5 cm heterogeneous solid mass in the upper medial portion of the right kidney. A neoplastic process should be ruled out. Stable small cysts in the mid and lower pole of the right kidney. Nonobstructive bilateral intrarenal calculi. Stable small cysts in the left kidney. Mild degree of left hydronephrosis and the proximal left hydroureter with perinephric stranding due to a 3.5 mm calculus in the midportion of the left ureter. Normal visualized stomach. Normal small intestine. There are scattered colonic diverticula consistent with diverticulosis. The appendix is visualized and appears normal. Normal abdominal aorta. Normal inferior vena cava. Normal retroperitoneum. Normal urinary bladder. Heterogeneous enlargement of the prostate. There is a right-sided inguinal hernia containing adipose tissue. There are diffuse degenerative changes of the visualized lumbar spine. Stable mild loss of height of the superior endplate of the L1 vertebrae. CT/Abdomen/Pelvis W IV Cont ONLY IMPRESSION: New 3.9 cm x 4.5 some heterogeneous solid mass in the upper medial portion of the right kidney. A neoplastic process should BE ruled out. Mild left hydronephrosis and hydroureter due to a 3.5 mm calculus in the midportion of the left ureter. Electronically Signed: Lavelle Del Valle MD at 10:51 EDT ,
[2022-11-29] MEDS: Ketorolac 15 MG/ML Vial IV (11:29)
[2022-11-29] MEDS: oxyCODONE 5 MG Tablet 10 MG PO (11:29)
[2022-11-29 11:32] VITALS: BP 184/88
--- NOTE | 2022-11-29 11:39 | ED.RN ---
Attempted to call daughter twice to come pick patient up. no answer-unable to leave voicemail.
== END 2022-11-29 11:45 | disposition home or self-care (01) ==
PROVIDERS: Emergency Provider Emergency Medicine; PCP Family Medicine Geriatric Medicine; Visit Provider Emergency Medicine
DX: N13.2 Hydronephrosis with renal and ureteral calculous obstruction (principal); E78.2 Mixed hyperlipidemia; I10 Essential (primary) hypertension; N28.89 Other specified disorders of kidney and ureter; Z87.891 Personal history of nicotine dependence; Z87.442 Personal history of urinary calculi; Z90.49 Acquired absence of other specified parts of digestive tract
CPT/HCPCS: 74177; 80053; 81001; 85025; 96361; 96374; 96375; 99285; J7030; Q9967; A4216; J2405

== ENCOUNTER → 2022-12-01 | Outpatient (CLI) | payer MEDICARE, SELFPAY ==
--- NOTE | 2022-12-01 16:06 | CT_ITS ---
STUDY: CT BRAIN WITHOUT CONTRAST REASON FOR EXAM: Male, 82 years old. Mental status change, headache RADIATION DOSAGE (If Supplied By Facility): CTDIvol = ( 44.99 ) mGy, DLP = ( 745.49 ) mGycm TECHNIQUE: Transaxial CT imaging of the brain was performed without administration of intravenous contrast material. Individualized dose optimization techniques were used for this CT. COMPARISON: 2017 FINDINGS: Normal soft tissue structures. Normal calvarium. Normal size ventricles and extra-axial spaces for the patient''s age. There are areas of decreased attenuation within the white matter tracts of the supratentorial brain, consistent with microvascular disease changes. Normal basal ganglia and thalami. Normal brainstem. Normal cerebellum. There is no intracranial hemorrhage. There are no findings of an acute ischemic infarction. Normal visualized paranasal sinuses. CT/Brain/Head without Contrast IMPRESSION: Age consistent changes, no acute findings. No interval change Electronically Signed: Gerald Menchaca MD at 16:31 EDT ,
--- NOTE | 2022-12-01 16:06 | CT_ITS ---
STUDY: CT ABDOMEN AND PELVIS WITHOUT CONTRAST REASON FOR EXAM: Male, 82 years old. Flank pain RADIATION DOSAGE (If Supplied By Facility): CTDIvol = ( 8.53 ) mGy, DLP = ( 500.66 ) mGycm TECHNIQUE: Transaxial images were obtained from the dome of the diaphragm to the symphysis pubis without oral contrast, and without intravenous contrast. Sagittal and coronal images were reconstructed. Individualized dose optimization techniques were used for this CT. COMPARISON: 11/29/2022 FINDINGS: Chronic interstitial changes in the lung bases with stable pleural plaques. Patient has undergone previous CABG. Normal liver. There are surgical clips in the gallbladder fossa consistent with a prior cholecystectomy. Normal spleen. Normal pancreas. 1 cm accessory spleen noted Normal bilateral adrenal glands. Abnormal soft tissue mass again noted in the right kidney, this was noted on the previous study to likely represent a renal cell carcinoma. Further evaluation to include biopsy recommended. There are nonobstructing right renal stones but no obstructive uropathy is noted. The left kidney shows hydronephrosis and hydroureter. A previously noted calcification in the proximal left ureter is now seen near the bladder on axial image 185 measuring 5 mm. There is persistent perinephric and periureteral inflammatory stranding. Stable nonobstructing left renal stones, stable simple cyst in the left kidney. There is a small hiatal hernia. Normal small intestine. Normal colon. There is non-visualization of the appendix. There is diffuse atherosclerotic calcification of the abdominal aorta, without a demonstrated aneurysm. Normal inferior vena cava. Normal retroperitoneum. Normal urinary bladder. There are prostatic calcifications. Normal abdominal wall. 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 CT/Abdomen/Pelvis without Cont IMPRESSION: Persistent suspicious soft tissue mass in the right kidney, it is again suspicious for renal cell carcinoma and further evaluation to include biopsy recommended. It is better visualized on the previous study due to IV contrast administration Persistent left hydronephrosis and hydroureter with perinephric and periureteral inflammatory stranding. The previously noted calcification within the proximal left ureter now sits near the bladder on axial image 185. Chronic interstitial changes in the lung bases without evidence of a suspicious noncalcified mass or nodule stable calcified pleural plaques. Degenerative bony changes Electronically Signed: Gerald Menchaca MD at 16:38 EDT ,
== END | disposition home or self-care (01) ==
LOC: CT 16:04
PROVIDERS: PCP Family Medicine Geriatric Medicine; Referring Provider Family Medicine Geriatric Medicine; Visit Provider Family Medicine Geriatric Medicine
DX: G93.40 Encephalopathy, unspecified (principal); N20.1 Calculus of ureter
CPT/HCPCS: 70450; 74176

== ENCOUNTER → 2022-12-01 | Outpatient (CLI) | payer MEDICARE, SELFPAY ==
[2022-12-01 17:42] LABS: Absolute Lymphocyte Count 0.32 X10^3/uL (0.83-4.51); Basophil# 0.02 X10^3/uL; Basophil% 0.1 % (0-1); Hematocrit 35.8 % (40-54); Hemoglobin 12.1 g/dL (13.0-16.5); Lymphocyte # 0.32 X10^3/ul (0.83-4.51); Lymphocyte % 2.1 % (19-41); Mean Corp Hgb Conc 33.8 g/dL (32-36); Mean Corpuscular Hgb 32.7 pg (27.0-32.0); Mean Corpuscular Volume 96.8 fL (80-94); Mean Platelet Vol. 10.6 fl (6.2-12.0); Monocyte# 0.56 X10^3/uL; Monocyte% 3.7 % (0-10); NRBC Flagged by Analyzer 0 % (0-5); Neutrophil # 13.97 X10^3/uL (2.7-7.7); Neutrophil % 92.6 % (47-70); POSITIVE DIFFERENTIAL YES; Platelet Count 123 K/mm3 (150-450); RBC Distribution Width CV 14.6 % (11.6-14.6); RBC Distribution Width SD 52.1 fl (35.1-43.9); White Blood Count 15.1 K/mm3 (4.4-11.0)
[2022-12-01 18:04] LABS: Differential Indicated SCAN CRITERIA MET
[2022-12-01 18:22] LABS: Acanthocytes RARE; Anisocytosis RARE; Macrocytosis RARE; Ovalocyte RARE; Platelet Estimate SLT DEC (ADEQ); Red Cell Morphology N CHROM NORMAL (NORM C&C)
[2022-12-01 18:23] LABS: AST(SGOT) 32 U/L (15-37); Alanine Aminotransfer ALT/SGPT 27 U/L (16-61); Albumin, Serum 3.5 g/dL (3.2-5.0); Alkaline Phosphatase 65 U/L (45-117); Anion Gap 10 (5-15); BUN 54 mg/dL (7-18); BUN/Creat Ratio 22.8 RATIO (10-20); Calcium,Total 8.9 mg/dL (8.5-10.1); Chloride 95 mmol/L (98-107); Creatinine, Serum 2.37 mg/dL (0.70-1.30); EST Glomerular Filtration Rate 28 mL/min (>60); Est Glom Filt Rate - Afr Amer 34 mL/min (>60); Globulin 3.6 g/dL (2.2-4.2); Glucose 99 mg/dL (74-106); Potassium 4.9 mmol/L (3.5-5.1); Protein, Total 7.1 g/dL (6.4-8.2); Sodium Level 128 mmol/L (136-145); Thyroid Stim Hormone (TSH) 1.04 uIU/mL (0.358-3.74)
== END | disposition home or self-care (01) ==
LOC: POLAB3 15:47
PROVIDERS: PCP Family Medicine Geriatric Medicine; Visit Provider Family Medicine Geriatric Medicine
DX: I10 Essential (primary) hypertension (principal); N39.0 Urinary tract infection, site not specified
CPT/HCPCS: 36415; 80053; 84443; 85025; 87077; 87086; 87088; 87186

== ENCOUNTER 2022-12-02 16:43 | Observation (INO) | payer MEDICARE, SELFPAY ==
[2022-12-02 15:20] VITALS: BMI 23.9
[2022-12-02 15:29] VITALS: BP 172/94; PULSE 76; RESP 18; TEMP 36.5; O2SAT 98
--- NOTE | 2022-12-02 16:25 | NURSING ---
This RN called Dr. Reza for orders. Dr. Palmer's office to send over official med list as daughter asked for us to call and get it from there as it was updated today, pt was seen in Dr. Chapman office early this morning.
[2022-12-02] MEDS: 0.9% Normal Saline 1,000 ML 50 ML IV (17:17)
[2022-12-02] MEDS: Ensure Clear 120 ML Liquid PO ×2 (17:18→20:31)
[2022-12-02] MEDS: Cefazolin 1 GM/50 ML BAG IV ×2 (18:12→21:14)
[2022-12-02] MEDS: Atorvastatin Calcium 40 MG Tablet PO (20:32)
[2022-12-02 20:45] VITALS: BP 155/90; PULSE 86; RESP 16; TEMP 36.9; O2SAT 98
[2022-12-03] VITALS (15 sets, daily range): BP systolic 85–151; BP diastolic 65–79; PULSE 62–98; RESP 14–18; TEMP 36.2–37.3; O2SAT 93–98
[2022-12-03] MEDS: Cefazolin 1 GM/50 ML BAG IV ×3 (05:34→19:56)
[2022-12-03] MEDS: Levothyroxine 25 MCG TABLET PO (05:35)
[2022-12-03 05:56] LABS: Absolute Lymphocyte Count 0.37 X10^3/uL (0.83-4.51); Absolute Neutrophil Count 8.4 X10^3/uL (2.0-7.7); Basophil# 0.02 X10^3/uL; Basophil% 0.2 % (0-1); Hematocrit 32.4 % (40-54); Lymphocyte # 0.37 X10^3/ul (0.83-4.51); Lymphocyte % 3.9 % (19-41); Mean Corpuscular Hgb 32.2 pg (27.0-32.0); Mean Corpuscular Volume 94.7 fL (80-94); Monocyte# 0.82 X10^3/uL; Monocyte% 8.5 % (0-10); NRBC Flagged by Analyzer 0 % (0-5); Neutrophil # 8.36 X10^3/uL (2.7-7.7); POSITIVE DIFFERENTIAL YES; Platelet Count 105 K/mm3 (150-450); RBC Distribution Width CV 14.4 % (11.6-14.6); RBC Distribution Width SD 50.2 fl (35.1-43.9); Red Blood Count 3.42 M/mm3 (4.6-6.2); White Blood Count 9.6 K/mm3 (4.4-11.0)
[2022-12-03 05:57] LABS: Differential Indicated SCAN CRITERIA MET
[2022-12-03 06:14] LABS: International Normalized Ratio 1.4; Prothrombin Time (Protime)PT. 17.1 SECONDS (11.7-14.9)
[2022-12-03 06:15] LABS: Partial Thromboplast Time 37.8 Seconds (24.1-36.2)
[2022-12-03 06:33] LABS: Differential Comment SCANNED; Ovalocyte 1+
[2022-12-03 06:49] LABS: AST(SGOT) 37 U/L (15-37); Alanine Aminotransfer ALT/SGPT 34 U/L (16-61); Albumin, Serum 2.6 g/dL (3.2-5.0); Alkaline Phosphatase 54 U/L (45-117); Globulin 3.5 g/dL (2.2-4.2); Protein, Total 6.1 g/dL (6.4-8.2)
--- NOTE | 2022-12-03 14:19 | NURSING ---
pt off floor for procedure
--- NOTE | 2022-12-03 15:03 | PCM.HP.STD ---
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 this to be addressed in a separate setting at this point he was admitted for pain control, placed a stent on the left side and he will be discharged home with instructions for outpatient surgery [facility] Medical History Accident due to mechanical fall without injury Atherosclerotic heart disease of [place] coronary artery without angina pectoris Contusion of left shoulder COVID-19 (~02/06/20) Epistaxis Essential hypertension Forehead abrasion Former smoker Gout history of severe headaches Kidney disease Kidney stones Mixed hyperlipidemia Non-smoker Osteoarthritis Shoulder pain Home Medications atorvastatin 40 mg tablet 40 mg PO QHS 06/21/19 [History Last Taken 12/01/22] aspirin 81 mg tablet,delayed release 81 mg PO DAILY 04/17/20 [History Last Taken Unknown] allopurinol 300 mg tablet 300 mg PO DAILY 06/04/22 [History Last Taken Unknown] citalopram 10 mg tablet 10 mg PO DAILY 06/04/22 [History Last Taken Unknown] levothyroxine 25 mcg tablet 50 mcg PO DAILY 06/04/22 [History Last Taken Unknown] metoprolol tartrate 25 mg tablet 25 mg PO DAILY 06/04/22 [History Last Taken Unknown] nitroglycerin 0.4 mg sublingual tablet 0.4 mg sublingual Q5-15M PRN chest pain #25 tabs 06/04/22 [Rx Last Taken Unknown] ondansetron 4 mg disintegrating tablet 4 mg PO Q8H PRN PRN Nausea #10 tabs 11/29/22 [Rx Last Taken Unknown] oxycodone-acetaminophen 5 mg-325 mg tablet 1 tab PO Q6H PRN PRN Pain 3 days #12 TABLETS 11/29/22 [Rx Last Taken Unknown] Allergy/AdvReac Type Severity Reaction Status Date / Time No Known Allergies Allergy Verified 06/04/22 10:58 Family History Mother Cancer Sister Cancer Brother Myocardial infarction Brother Myocardial infarction Surgical History History of arthroscopy of left knee History of cholecystectomy History of coronary artery bypass surgery (~10/24/09) Social History Smoking Status: Former smoker alcohol intake: never substance use type: does not use caffeine: Yes Type: coffee Number of servings: 1 ROS Constitutional Constitutional: Denies chills, fever(s) or malaise Eyes Eyes: Denies blurry vision or change in vision ENT HEENT: Reports none Cardiovascular Cardiovascular: Denies chest pain or palpitations Respiratory/Chest Respiratory/Chest: Denies cough or shortness of breath with exertion Gastrointestinal Gastrointestinal: Denies abdominal pain, constipation or diarrhea Musculoskeletal Musculoskeletal: Denies back pain, joint stiffness or joint swelling Integumentary Integumentary: Denies dry skin, jaundice, lesions or rash Neurologic Neurologic: Denies confusion, syncope or weakness Psychiatric Psychiatric: Reports none; Denies anxiety or depression Endocrine Endocrinology: Denies excessive sweating, fatigue or flushing Hematologic/Lymphatic Hematologic/Lymphatic: Denies anemia, easy bleeding or easy bruising Vital Signs Vital Signs Vital Signs: 12/02/22 15:29 12/02/22 17:25 12/02/22 20:21 Temperature 97.7 F L Temperature Source Oral Pulse Rate 76 Pulse Strength Normal (2+) Respiratory Rate 18 Respiratory Effort Normal Non-Labored Respiratory Depth Normal Respiratory Pattern Normal Blood Pressure 172/94 H Blood Pressure [BP] Blood Pressure Mean 120 Blood Pressure Mean [BP] Blood Pressure Source Monitor Blood Pressure Source [BP] Blood Pressure Position Semi-Fowlers Blood Pressure Location Right Arm Pulse Ox 98 Oxygen Delivery Method Room Air Room Air 12/02/22 20:45 12/03/22 02:45 12/03/22 08:42 Temperature 98.5 F 99.1 F 98.7 F Temperature Source Temporal Oral Oral Pulse Rate 86 76 98 Pulse Strength Respiratory Rate 16 16 16 Respiratory Effort Respiratory Depth Respiratory Pattern Blood Pressure 155/90 H 151/76 H 149/79 H Blood Pressure [BP] Blood Pressure Mean 111 101 102 Blood Pressure Mean [BP] Blood Pressure Source Monitor Monitor Blood Pressure Source [BP] Blood Pressure Position Semi-Fowlers Semi-Fowlers Blood Pressure Location Left Arm Left Arm Pulse Ox 98 95 93 Oxygen Delivery Method Room Air Room Air Room Air 12/03/22 08:48 12/03/22 10:00 12/03/22 14:00 Temperature 98.3 F Temperature Source Oral Pulse Rate 92 Pulse Strength Normal (2+) Respiratory Rate 16 Respiratory Effort Normal Non-Labored Respiratory Depth Normal Respiratory Pattern Normal Blood Pressure Blood Pressure [BP] 138/72 H Blood Pressure Mean Blood Pressure Mean [BP] 94 Blood Pressure Source Blood Pressure Source [BP] Monitor Blood Pressure Position Blood Pressure Location Pulse Ox 94 Oxygen Delivery Method Room Air Room Air Weight Weight: 75.6 kg Body Mass Index (BMI) 23.9 Physical Exam Const alert and oriented x3 General Appearance: cooperative HEENT normocephalic, head/scalp atraumatic, EAC's normal and TM's normal bilaterally Eyes PERRL and EOMs intact bilaterally Pupil: sluggish Neck no lymphadenopathy, supple and no JVD General: trachea midline Lymph Lymphatic: no lymphadenopathy noted, lymphedema and lymphadenopathy Resp normal respiratory effort, normal air movement and clear to auscultation bilaterally Cardio regular rate, regular rhythm and peripheral pulses 2+ throughout GI soft to palpation, non-tender and non-distended Extremity normal capillary refill and no clubbing, cyanosis or edema General Extremity: no tenderness to palpation of joints or extremities Skin no rashes or lesions noted General Skin Exam: turgor normal Lesions: no lesions Rashes: no rashes Neuro CN's II-XII intact bilaterally Speech: speech normal Motor Exam: strength 5/5 throughout; Negative for general weakness Psych thought process normal, cooperative and affect normal Appearance: appropriate Results Lab / Micro Data 12/03/22 05:40 Labs: Laboratory Results - last 24 hr 12/03/22 05:40: WBC 9.6, RBC 3.42 L, Hgb 11.0 L, Hct 32.4 L, MCV 94.7 H, MCH 32.2 H, MCHC 34.0, RDW Std Deviation 50.2 H, RDW Coeff of Fiona 14.4, Plt Count 105 L, MPV 10.0, Immature Gran % (Auto) 0.400, Neut % (Auto) 87.0 H, Lymph % (Auto) 3.9 L, [place] % (Auto) 8.5, Eos % (Auto) 0.0, Baso % (Auto) 0.2, Absolute Neuts (auto) 8.4 H, Absolute Lymphs (auto) 0.37 L, Nucleated RBC % 0, Differential Comment SCANNED, Ovalocytes 1+, PT 17.1 H, INR 1.4, APTT 37.8 H, Total Bilirubin 0.70, Direct Bilirubin 0.30, AST 37, ALT 34, Alkaline Phosphatase 54, Total Protein 6.1 L, Albumin 2.6 L, Globulin 3.5 Assessment & Plan Assessment/Plan (1) Ureterolithiasis: PLAN: Plan for cystoscopy and stent placement and discharge home later tonight. (2) Abdominal pain, acute: (3) Kidney stone on left side:
--- NOTE | 2022-12-03 15:04 | DCINST_ITS ---
Discharge Instructions Diet Discharge Diet: No restrictions Activity Discharge Activity: Return to Normal Activity and May Not Drive (while taking narcotic pain medications.) Dressing / Incision Call your doctor if you observe: Fever of 101 or Higher Follow Up Care Please Follow Up With: Fab Reza MD When: Call [phone] for an appointment Test Results: Test results from this visit will be discussed in further detail at your follow- up appointment, if applicable. Discharge Plan Admission Admit Date/Time: 12/02/22 16:43 Attending Provider: Fab Reza Primary Care Provider: Mike Palmer Chi Discharge Orders/Prescriptions Prescriptions: No Action atorvastatin 40 mg tablet 40 mg PO QHS levothyroxine 25 mcg tablet 50 mcg PO DAILY allopurinol 300 mg tablet 300 mg PO DAILY citalopram 10 mg tablet 10 mg PO DAILY metoprolol tartrate 25 mg tablet 25 mg PO DAILY nitroglycerin 0.4 mg tablet, sublingual 0.4 mg sublingual Q5-15M PRN (Reason: chest pain) Qty: 25 6RF Rx Instructions: do not exceed 3 doses per episode aspirin 81 mg tablet,delayed release (DR/EC) 81 mg PO DAILY oxycodone-acetaminophen [oxycodone-acetaminophen] 5-325 mg tablet 1 tab PO Q6H PRN PRN (Reason: Pain) 3 Days Qty: 12 0RF ondansetron [ondansetron] 4 mg tablet,disintegrating 4 mg PO Q8H PRN PRN (Reason: Nausea) Qty: 10 0RF Referrals / Follow Up: Mike Palmer Chi, MD [Primary Care Provider] -
[2022-12-03] MEDS: Lidocaine Jelly 2% 20 ML Syringe (URO-JET) 1 APPLIC (16:32)
--- NOTE | 2022-12-03 16:38 | PCM.OPRPT ---
Report of Operation Date of Procedure: 12/03/22 Pre-Operative Diagnosis: Obstructing left ureteral calculi with infection Post-Operative Diagnosis: The same Surgery/Procedure Performed:: Cystoscopy left stent placement and left retrograde pyelogram Description of Surgical Findings:: Patient was taken back to the operating room after induction of general anesthesia, the patient was placed in dorsolithotomy position. The urethra and genitals were prepped and draped in usual sterile fashion. Using a 21 Mongolian rigid cystourethroscope the entire length of the urethra was normal then went into the bladder. Identified the trigone the left and right ureteral orifice. I then cannulated the Left orifice and advanced a wire up into the kidney. I then backloaded a 5 Mongolian open ended catheter over the wire and injected contrast to delineate the anatomy. After the retrograde was performed I then used fluoroscopic images and guidance to advanced a wire up into the kidney and over the 0.038 glidewire I advanced a 6 Mongolian by 26 cm double pigtail stent. I then pulled the 0.038 Glidewire off and the stent coiled in the kidney bladder good position. The bladder was then drained. We confirmed the position of the stent by fluoroscopy. Patient anesthetic was reversed and was taken back to the PACU in good condition. Surgeon: Fab Reza Type of Anesthesia: General Drains: stent Admit VTE Documentation VTE Present on Admission: No VTE Mechan Device Prophylaxis: SCD's VTE Pharm Prophylaxis ordered?: No
--- NOTE | 2022-12-03 17:10 | EKG12_ITS ---
Test Reason : Blood Pressure : / mmHG Vent. Rate : 076 BPM Atrial Rate : 076 BPM P-R Int : 230 ms QRS Dur : 154 ms QT Int : 430 ms P-R-T Axes : -01 -35 -09 degrees QTc Int : 483 ms Sinus rhythm with 1st degree A-V block with Premature atrial complexes Left axis deviation Right bundle branch block Left ventricular hypertrophy with repolarization abnormality ( R in aVL ) Abnormal ECG When compared with ECG of 02-APR-2013 09:04, Premature atrial complexes are now Present Right bundle branch block is now Present Confirmed by WANDA MARTINEZ, SELINA ([id number]), science editor TIMOTHY CHAPPELL ([id number]) on 01/11/2023 1:37:02 PM Referred By: Juaquin Confirmed By:SELINA MUÑOZ MD
[2022-12-03] MEDS: 0.9% Normal Saline 1,000 ML 50 ML IV (18:44)
[2022-12-03] MEDS: Atorvastatin Calcium 40 MG Tablet PO (19:58)
[2022-12-04 02:24] VITALS: BP 127/87; PULSE 75; RESP 16; TEMP 36.9; O2SAT 96
[2022-12-04] MEDS: Acetaminophen 500 MG Tablet PO (04:19)
[2022-12-04] MEDS: Cefazolin 1 GM/50 ML BAG IV (04:19)
[2022-12-04] MEDS: Levothyroxine 25 MCG TABLET PO (04:19)
[2022-12-04 10:05] VITALS: BP 117/76; PULSE 61; RESP 18; TEMP 36.7; O2SAT 98
[2022-12-04 10:13] VITALS: PULSE 61
[2022-12-04] MEDS: Metoprolol Tartrate 25 MG Tablet 12.5 MG PO (10:13)
[2022-12-04] MEDS: Allopurinol 300 MG Tablet PO (10:13)
[2022-12-04] MEDS: Citalopram 10 MG Tablet PO (10:13)
--- NOTE | 2022-12-04 14:58 | CASEMGMT ---
KORY MARCELINO in to complete PEREZ form. RN CHARI explained PEREZ form to patient, patient voiced understanding. Patient signed PEREZ form and filed in chart. Patient provided copy of signed PEREZ form. Patient had no further questions or concerns.
[2022-12-04 16:07] VITALS: BP 139/86; PULSE 97; RESP 19; TEMP 36.8; O2SAT 98
--- NOTE | 2022-12-04 16:09 | NURSING ---
Dr. Reza paged by this Nurse and asked if it was okay to discharge pt. Dr. Reza thought that pt had left yesterday 12/03/22. This RN informed Dr. Reza that pt did not have a ride home after his late surgery therefore he stayed. Dr. Reza said it was okay to discharge pt.
== END 2022-12-04 17:25 | disposition home or self-care (01) ==
PROVIDERS: Admitting Provider Urology; PCP Family Medicine Geriatric Medicine; Visit Provider Urology
PROC: (CPT 52332; principal; 2022-12-03 16:35)
DX: N20.1 Calculus of ureter (principal); Z86.16 Personal history of COVID-19; E78.2 Mixed hyperlipidemia; I10 Essential (primary) hypertension; Z79.82 Long term (current) use of aspirin; Z87.891 Personal history of nicotine dependence; N28.89 Other specified disorders of kidney and ureter; Z79.899 Other long term (current) drug therapy; Z79.890 Hormone replacement therapy; I25.10 Atherosclerotic heart disease of native coronary artery without angina pectoris; M10.9 Gout, unspecified
CPT/HCPCS: 52332; 00910; 36415; 76000; 80076; 85025; 85610; 85730; 93005; J7030; C1769; C2617; J2405

== ENCOUNTER 2022-12-22 10:18 | Day surgery (SDC) | payer MEDICARE, SELFPAY ==
[2022-12-22] MEDS: Lactated Ringers 1,000 ML 15 ML IV (11:15)
[2022-12-22 11:20] VITALS: BP 178/80; PULSE 16; RESP 16; TEMP 36.8; O2SAT 98; BMI 24.5
[2022-12-22] MEDS: Cefazolin 2 GM in 0.9% Normal Saline (100mL Bag) 100 ML IV (12:26)
--- NOTE | 2022-12-22 13:01 | HP.PCM_ITS ---
HPI - General General Date of Service: 12/22/22 Chief Complaint: Left ureteral stone status post stent HPI Narrative CARLY HESS, is a 82 M who presents for laser lithotripsy of stone removal of stent [facility] Medical History (Updated 12/15/22 @ 11:16 by Olivia Hernández) Accident due to mechanical fall without injury Atherosclerotic heart disease of [place] coronary artery without angina pectoris Cardiology follow-up encounter Contusion of left shoulder COVID-19 (~02/06/20) Epistaxis Essential hypertension Forehead abrasion Former smoker Gout High cholesterol History of echocardiogram history of severe headaches History of stress test Hypertension Kidney disease Kidney stones Mixed hyperlipidemia Non-smoker Osteoarthritis Shoulder pain Thyroid disease Wears glasses Home Medications atorvastatin 40 mg tablet 40 mg PO QHS 06/21/19 [History Last Taken 12/01/22] aspirin 81 mg tablet,delayed release 81 mg PO DAILY 04/17/20 [History Last Taken 12/17/22] allopurinol 300 mg tablet 300 mg PO DAILY 06/04/22 [History Last Taken Unknown] citalopram 10 mg tablet 10 mg PO DAILY 06/04/22 [History Last Taken Unknown] levothyroxine 25 mcg tablet 50 mcg PO DAILY 06/04/22 [History Last Taken Unknown] metoprolol tartrate 25 mg tablet 25 mg PO DAILY 06/04/22 [History Last Taken Unknown] nitroglycerin 0.4 mg sublingual tablet 0.4 mg sublingual Q5-15M PRN chest pain #25 tabs 06/04/22 [Rx Last Taken Unknown] oxycodone-acetaminophen 5 mg-325 mg tablet 1 tab PO Q6H PRN PRN Pain 3 days #12 TABLETS 11/29/22 [Rx Last Taken Unknown] oxycodone 5 mg tablet 5 mg PO Q6H PRN pain 7 days #20 tabs 12/03/22 [Rx Last Taken Unknown] tamsulosin 0.4 mg capsule (Flomax) 0.4 mg PO DAILY #30 caps 12/03/22 [Rx Last Taken Unknown] ciprofloxacin HCl 500 mg tablet (Cipro) 500 mg PO BID #6 tabs 12/22/22 [Rx Last Taken Unknown] Allergy/AdvReac Type Severity Reaction Status Date / Time No Known Allergies Allergy Verified 12/22/22 11:03 Family History Mother Cancer Sister Cancer Brother Myocardial infarction Brother Myocardial infarction Surgical History (Updated 12/15/22 @ 11:16 by Olivia Hernández) History of arthroscopy of left knee History of cholecystectomy History of coronary artery bypass surgery (~10/24/09) Hx of cystoscopy Social History Smoking Status: Former smoker alcohol intake: never substance use type: does not use caffeine: Yes Type: coffee Number of servings: 1 Vital Signs Vital Signs Vital Signs: 12/22/22 11:20 12/22/22 11:20 Temperature 98.3 F Temperature Source Temporal Pulse Rate 16 L Respiratory Rate 16 Respiratory Pattern Normal Blood Pressure 178/80 H Blood Pressure Mean 112 Blood Pressure Source Monitor Blood Pressure Position Semi-Fowlers Pulse Ox 98 Oxygen Delivery Method Room Air Weight Weight: 73 kg Body Mass Index (BMI) 24.5
--- NOTE | 2022-12-22 13:01 | DCINST_ITS ---
Discharge Instructions Diet Discharge Diet: No restrictions Activity Discharge Activity: Return to Normal Activity and May Not Drive (while taking narcotic pain medications.) Dressing / Incision Call your doctor if you observe: Fever of 101 or Higher Follow Up Care Please Follow Up With: Fab Reza MD When: Call [phone] for an appointment Test Results: Test results from this visit will be discussed in further detail at your follow- up appointment, if applicable. Discharge Plan Admission Primary Reason for Your Visit: Laser of stone and removal of stent Attending Provider: Fab Reza Primary Care Provider: Mike Palmer Chi Discharge Orders/Prescriptions Prescriptions: New ciprofloxacin HCl [Cipro] 500 mg tablet 500 mg PO BID Qty: 6 0RF Continued atorvastatin 40 mg tablet 40 mg PO QHS levothyroxine 25 mcg tablet 50 mcg PO DAILY allopurinol 300 mg tablet 300 mg PO DAILY citalopram 10 mg tablet 10 mg PO DAILY metoprolol tartrate 25 mg tablet 25 mg PO DAILY nitroglycerin 0.4 mg tablet, sublingual 0.4 mg sublingual Q5-15M PRN (Reason: chest pain) Qty: 25 6RF Rx Instructions: do not exceed 3 doses per episode aspirin 81 mg tablet,delayed release (DR/EC) 81 mg PO DAILY oxycodone-acetaminophen 5-325 mg tablet 1 tab PO Q6H PRN PRN (Reason: Pain) 3 Days Qty: 12 0RF tamsulosin [Flomax] 0.4 mg capsule 0.4 mg PO DAILY Qty: 30 0RF oxycodone 5 mg tablet 5 mg PO Q6H PRN (Reason: pain) 7 Days Qty: 20 0RF Referrals / Follow Up: Fab Reza MD [Med Staff - Active Staff] - Mike Palmer Chi, MD [Primary Care Provider] - Disposition Disposition (needs filled in before D/C Order can be placed): Home, Self Care
--- NOTE | 2022-12-22 13:02 | OP.PCM_ITS ---
Report of Operation Date of Procedure: 12/22/22 Pre-Operative Diagnosis: Left ureteral calculi status post stent Post-Operative Diagnosis: Same Surgery/Procedure Performed:: Cystoscopy laser lithotripsy of stone, stent removal. No stent placed Description of Surgical Findings:: This is a patient who presents to the hospital for treatment for an obstructing distal ureter calculi. I discussed with the patient how the surgery would be performed and we reviewed the risks and benefits of the surgery. The risk and benefits include the risk of failure to remove the stone completely and that the patient may need multiple procedures. We discussed the risk of an infection, the risk of bleeding. We discussed the very rare risk of serious complicated injury to the ureter. The patient understands that if the stone is not able to be removed safely that we may abort the procedure and place a stent. After full discussion and all questions address with the patient the consent form was signed the side was marked appropriately and the patient was taken back to the operating room for the procedure. The patient was taken back to the operating room. After induction of anesthesia by the anesthesiology team the patient was placed in dorsolithotomy position. The genitals were prepped and draped in usual sterile fashion. I went into the bladder with a 21 [place] rigid cystourethroscope through the urethra. Upon entering the bladder I inspected the trigone the left and right ureteral orifice and the bladder itself. I then cannulated the left ureteral orifice and advanced a 0.038 Glidewire up into the kidney. After 3 minutes of dilating the ureter the balloon was backloaded off the 0.038 glidewire then the safety wire was left in place. I then placed a second 0.038 Guidewire as a working wire and over the working 0.038 guidewire I went in with the nelda rigide 7.5fr ureteroscope. I was able to go inside with the 7.5Fr nelda rigid utereroscope and I pulled out the working guidewire and then through the 7.5 fr simirigid ure teroscope I engage the stone in the distal ureter with laser lithotripsy using a 270miron laser fiber with energy setting of 6 Hertz and 0.6 J until the stone was lasered into tiny little pieces that should pass on their own. Ureteroscope was then removed in the ureter all the stones were passed no stent was placed and the bladder was drained. the patient was given discharge instructions to call the office for instructions on when to come to the office for a follow up in 6 weeks. Surgeon: Fab Reza Type of Anesthesia: General Drains: none Estimated Blood Loss (mL): 0 Admit VTE Documentation VTE Present on Admission: No VTE Mechan Device Prophylaxis: SCD's VTE Pharm Prophylaxis ordered?: No
[2022-12-22 13:08] VITALS: BP 139/84; BP 178/80; PULSE 56; RESP 16; TEMP 36.5; O2SAT 96
[2022-12-22 13:15] VITALS: BP 151/99; BP 178/80; PULSE 57; RESP 16; O2SAT 97
[2022-12-22 13:30] VITALS: BP 136/88; BP 178/80; PULSE 64; RESP 16; O2SAT 96
[2022-12-22 13:45] VITALS: BP 160/87; BP 178/80; PULSE 62; RESP 16; TEMP 36; O2SAT 99
[2022-12-22 14:40] VITALS: BP 178/80
== END 2022-12-22 14:52 | disposition home or self-care (01) ==
LOC: SDC 10:19 → AC 10:20
PROVIDERS: PCP Family Medicine Geriatric Medicine; Referring Provider Urology; Visit Provider Urology
PROC: 0TJ98ZZ Inspection of Ureter, Via Natural or Artificial Opening Endoscopic (ICD-10-PCS; CPT 52352; principal; 2022-12-22 12:35)
DX: N20.1 Calculus of ureter (principal); I25.10 Atherosclerotic heart disease of native coronary artery without angina pectoris; I10 Essential (primary) hypertension; E78.00 Pure hypercholesterolemia, unspecified; M10.9 Gout, unspecified; Z79.82 Long term (current) use of aspirin; Z79.899 Other long term (current) drug therapy; Z86.16 Personal history of COVID-19; Z87.891 Personal history of nicotine dependence; Z95.1 Presence of aortocoronary bypass graft
CPT/HCPCS: 52353; 00918; J7120; C1769; J2405

== ENCOUNTER 2023-04-28 11:07 | Emergency (ER) | payer MEDICARE, SELFPAY ==
[2023-04-28 11:08] VITALS: BP 146/72; PULSE 57; RESP 14; TEMP 36.8; O2SAT 98; BMI 27.7
[2023-04-28 11:11] VITALS: O2SAT 97
--- NOTE | 2023-04-28 11:24 | EX.ED.GENINJ ---
HPI History of Present Illness Chief Complaint: Head Injury [facility] Medical History Accident due to mechanical fall without injury Atherosclerotic heart disease of [place] coronary artery without angina pectoris Cardiology follow-up encounter Contusion of left shoulder COVID-19 (~02/06/20) Epistaxis Essential hypertension Forehead abrasion Former smoker Gout High cholesterol History of echocardiogram history of severe headaches History of stress test Hypertension Kidney disease Kidney stones Mixed hyperlipidemia Non-smoker Osteoarthritis Shoulder pain Thyroid disease Wears glasses Home Medications atorvastatin 40 mg tablet 40 mg PO QHS 06/21/19 [History Last Taken 12/01/22] aspirin 81 mg tablet,delayed release 81 mg PO DAILY 04/17/20 [History Last Taken 12/17/22] allopurinol 300 mg tablet 300 mg PO DAILY 06/04/22 [History Last Taken Unknown] citalopram 10 mg tablet 10 mg PO DAILY 06/04/22 [History Last Taken Unknown] levothyroxine 25 mcg tablet 50 mcg PO DAILY 06/04/22 [History Last Taken Unknown] metoprolol tartrate 25 mg tablet 25 mg PO DAILY 06/04/22 [History Last Taken Unknown] nitroglycerin 0.4 mg sublingual tablet 0.4 mg sublingual Q5-15M PRN chest pain #25 tabs 06/04/22 [Rx Last Taken Unknown] oxycodone-acetaminophen 5 mg-325 mg tablet 1 tab PO Q6H PRN PRN Pain 3 days #12 TABLETS 11/29/22 [Rx Last Taken Unknown] oxycodone 5 mg tablet 5 mg PO Q6H PRN pain 7 days #20 tabs 12/03/22 [Rx Last Taken Unknown] tamsulosin 0.4 mg capsule (Flomax) 0.4 mg PO DAILY #30 caps 12/03/22 [Rx Last Taken Unknown] ciprofloxacin HCl 500 mg tablet (Cipro) 500 mg PO BID #6 tabs 12/22/22 [Rx Last Taken Unknown] Allergy/AdvReac Type Severity Reaction Status Date / Time No Known Allergies Allergy Verified 04/28/23 11:08 Family History Mother Cancer Sister Cancer Brother Myocardial infarction Brother Myocardial infarction Surgical History History of arthroscopy of left knee History of cholecystectomy History of coronary artery bypass surgery (~10/24/09) Hx of cystoscopy Social History Smoking Status: Former smoker alcohol intake: never substance use type: does not use caffeine: Yes Type: coffee Number of servings: 1 EXAM Physical Exam Const Vital Signs: 04/28/23 11:08 04/28/23 11:11 Temperature 98.2 F Temperature Source Temporal Pulse Rate 57 L Respiratory Rate 14 Respiratory Effort Normal Non-Labored Blood Pressure 146/72 H Blood Pressure Mean 96 Pulse Ox 98 97 Oxygen Delivery Method Room Air Room Air MDM MDM MDM Narrative Medical decision making narrative: HISTORY OF PRESENT ILLNESS: 82-year-old male here for mechanical fall. Notes laceration of the left eye. Noted bleeding controlled. Denies blood thinners. REVIEW OF SYSTEMS: Pertinent positives: Head trauma, laceration Pertinent negatives: Loss of consciousness, vomiting PHYSICAL EXAM: Nursing triage notes reviewed, Vital signs reviewed Constitutional: please see [facility] Primary Survey Airway: Intact Breathing: Bilateral breath sounds Circulation: Palpable bilateral femorals, Palpable bilateral radial, Palpable bilateral DP and Palpable bilateral PT Disability / Spine precautions GCS Score: Eye Openin Verbal Response: 5 Motor Response: 6 Secondary Survey Constitutional: Please see [facility] Head: , NO jaw malocclusion left forehead soft hematoma, left eyebrow laceration approximate 3 cm in length, 1 mm in depth, no galea involvement, no foreign bodies Eye: Pupils equal round and reactive to light, Extraocular muscles intact and No periorbital ecchymosis or stepoff, no evidence of entrapment ENT: Oropharynx clear, no lacerations, no hemotympanum, no raccoon eyes or gray sign Cervical spine / Neck: No cervical spine bony tenderness, crepitance, or stepoff deformity Trachea midline Lungs: Clear to auscultation, No asymmetric rise and No crepitus, no flail chest Cardiac: Regular rate and rhythm and No murmurs Abdomen: Soft, Nontender and No rebound Pelvis: Pelvis stable to compression : No evidence of genital injury Back: No midline bony tenderness to thoracic/lumbar/sacral spines Neuro: At baseline, intact strength and sensation in bilateral upper and lower extremities. 2+ patellar reflexes bilaterally. Extremities: NO gross Deformities Psych: Normal affect Nursing triage notes reviewed, Vital signs reviewed MEDICAL DECISION MAKING: Chief Complaint: Fall, head trauma External records reviewed: CT scan from 2022 of the head shows no acute intracranial process Factors affecting care: Gout, hyperlipidemia, hypothyroidism MDM Narrative: Patient was hemodynamically stable, afebrile, nontoxic-appearing. Primary secondary trauma surveys concerning for the following: I considered the following differential diagnosis: ICH, cervical spine injury, facial fracture ALL IMAGES (IF OBTAINED) HAVE BEEN PERSONALLY REVIEWED AND INTERPRETED BY MYSELF. CT scan of the head and cervical spine were negative. The patient's lacerations were repaired. Please see below procedure note. Procedure: Laceration repair. The procedure was performed by myself. Indication: Wound repair Risks and benefits: risks, benefits and alternatives were discussed Consent: Consent was obtained. Wound Details: Approximate 3 cm linear laceration noted to the left eyebrow, 1 mm in depth, no foreign body, Anesthesia: Topical let Wound prep: Patient was prepped and draped in the usual sterile fashion. Tetanus: Updated today Irrigation Solution: Saline Wound Preparation: Cleaned with topical chlorhexidine The wound was explored to its base in a bloodless field. Procedure Description: Placed three 5-0 Chromic Gut suturesWith good approximation Patient tolerated the procedure well with no immediate complications The patient and/or family, caregivers express understanding. The patient and/or family, caregivers agrees with the plan. Shared decision making: I will have a discussion with the patient and or visitors regarding risk/benefits of further testing or admission. They will be made aware of of the risk/benefits inherent in this decision they will be given the opportunity to voice understanding. Total critical care time today provided was at least 0 [] minutes. This excludes separately billable procedures. Critical care time (if documented) is secondary to the patient having high probability of clinically significant/life threatening deterioration in the patient's condition which required my urgent intervention. Impression: 1. Fall 2. Cephalhematoma 3. Forehead laceration Dispo: Discharge Radiography Diagnostic Testing: Clinical Impression(s) from Imaging Studies Brain CT 04/28/23 11:29 IMPRESSION: Chronic involutional changes of the brain. Small hematoma overlying the left orbital region. Electronically Signed: Lavelle Del Valle MD at 12:56 EST , Cervical Spine CT 04/28/23 11:29 IMPRESSION: Multilevel degenerative changes, as described above. Electronically Signed: Lavelle Del Valle MD at 13:05 EST , Discharge Plan Triage Chief Complaint: Head Injury ED Provider: Marlon Vizcaino Dx/Rx/DC Orders Prescriptions: No Action atorvastatin 40 mg tablet 40 mg PO QHS levothyroxine 25 mcg tablet 50 mcg PO DAILY allopurinol 300 mg tablet 300 mg PO DAILY citalopram 10 mg tablet 10 mg PO DAILY metoprolol tartrate 25 mg tablet 25 mg PO DAILY nitroglycerin 0.4 mg tablet, sublingual 0.4 mg sublingual Q5-15M PRN (Reason: chest pain) Qty: 25 6RF Rx Instructions: do not exceed 3 doses per episode aspirin 81 mg tablet,delayed release (DR/EC) 81 mg PO DAILY oxycodone-acetaminophen 5-325 mg tablet 1 tab PO Q6H PRN PRN (Reason: Pain) 3 Days Qty: 12 0RF tamsulosin [Flomax] 0.4 mg capsule 0.4 mg PO DAILY Qty: 30 0RF oxycodone 5 mg tablet 5 mg PO Q6H PRN (Reason: pain) 7 Days Qty: 20 0RF ciprofloxacin HCl [Cipro] 500 mg tablet 500 mg PO BID Qty: 6 0RF Primary Care Provider: Mike Palmer Chi Referrals: Mike Palmer Chi, MD [Primary Care Provider] -
--- NOTE | 2023-04-28 11:29 | CT_ITS ---
STUDY: CT BRAIN WITHOUT CONTRAST REASON FOR EXAM: Male, 82 years old. Head trauma RADIATION DOSAGE (If Supplied By Facility): CTDIvol = ( 44.99 ) mGy, DLP = ( 782.05 ) mGycm TECHNIQUE: Transaxial CT imaging of the brain was performed without administration of intravenous contrast material. Individualized dose optimization techniques were used for this CT. COMPARISON: Comparison is made with prior study December 01, 2022. FINDINGS: Small hematoma overlying the left orbital region. Normal calvarium. Normal size ventricles and extra-axial spaces for the patient''s age. There are areas of decreased attenuation within the white matter tracts of the supratentorial brain, consistent with microvascular disease changes. Normal basal ganglia and thalami. Normal brainstem. Normal cerebellum. There is no intracranial hemorrhage. There are no findings of an acute ischemic infarction. Atherosclerotic calcification of the vertebral arteries and cavernous portions of the internal carotid arteries bilaterally. Minimal mucosal thickening along the posterior aspect of the right maxillary sinus. CT/Brain/Head without Contrast IMPRESSION: Chronic involutional changes of the brain. Small hematoma overlying the left orbital region. Electronically Signed: Lavelle Del Valle MD at 12:56 EST ,
--- NOTE | 2023-04-28 11:29 | CT_ITS ---
STUDY: CT CERVICAL SPINE WITHOUT CONTRAST REASON FOR EXAM: Male, 82 years old. Neck pain RADIATION DOSAGE (If Supplied By Facility): CTDIvol = ( 22.06 ) mGy, DLP = ( 502.65 ) mGycm TECHNIQUE: High resolution transaxial imaging was performed without contrast material. Sagittal and coronal images were reconstructed. Individualized dose optimization techniques were used for this CT. COMPARISON: Comparison is made with prior study dated January 24, 2018. FINDINGS: Normal craniovertebral junction. Normal anterior atlantoaxial articulation. Normal odontoid process. There is reversal of the normal cervical lordosis. C2-3: Facet joint osteoarthritis and hypertrophy worse on the left side. No significant neural foraminal stenosis is seen. C3-4: Facet joint osteoarthritis and hypertrophy. Posterior spondylosis on the right side of the midline causing a moderate degree of right neural foraminal stenosis. C4-5: Marked degree of disc space narrowing with anterior spondylosis. Uncovertebral arthrosis with bilateral neural foraminal stenosis. Slightly worse on the left side. C5-6: Marked degree of disc space narrowing and disc degeneration. Spondylosis. Uncovertebral arthrosis. Mild degree of bilateral neural foraminal stenosis. C6-7: Normal endplates. Normal disc height and morphology. Normal central canal and intervertebral neuroforamina. C7-T1: Normal endplates. Normal disc height and morphology. Normal central canal and intervertebral neuroforamina. Normal visualized soft tissue structures. CT/Spine Cervical without Contras IMPRESSION: Multilevel degenerative changes, as described above. Electronically Signed: Lavelle Del Valle MD at 13:05 EST ,
[2023-04-28] MEDS: Diphth,Pertuss(Acell),Tet Vac 0.5 ML Vial IM (11:46)
--- OUTSIDE RECORDS SUMMARY | 2023-04-28 12:22 | XMS RPT_ITS | CCD ---
Author Name Unknown Address [address] [place] [address] Organization [facility] Care Team Providers Care Job Superintendent Name Role Phone TYLER COLES Unavailable Unavailable Mike Palmer Chi Primary Care Provider Medications Completed/Discontinued Medications Medication Drug Class(es) Dates Sig (Normalized) Sig (Original) 8 hr acetaminophen 650 mg extended release oral tablet (1 source) Start: 01-03-2007 Acetaminophen (ARTHRITIS PAIN RELIEVER) 650 mg ORAL TbSR as necessary FOR PAIN 0 01/03/2007 Active Problems Problem Classification Problem Date Documented Date Episodic/Chronic Biliary tract disease (1 source) Gallstone; Translations: [Calculus of gallbladder without mention of cholecystitis or obstruction] Onset: 01-03-2007 01-03-2007 Episodic Results Test Name Value Interpretation Reference Range Facil ity Encounters Encounter Date Encounter Type Care Provider Facility Start: 06-16-2017 Ambulatory TYLER COLES Facility :B Start: 10-24-2009 End: 10-24-2009 Patient encounter procedure Nate Corbett Work Phone: [facility] Start: 10-24-2009 Results Only Nate Corbett Work Phone: [facility] Procedures Date Procedure Procedure Detail Performing Clinician Start: 10-24-2009 CONVERTED SURGICAL PATHOLOGY Nate Corbett Work Phone: Plan of Treatment Date Care Activity Detail Author Start: 12-04-2019 Influenza vaccination INFLUENZA (#1) [facility] Start: 2006 ADVANCE DIRECTIVE DISCUSSION ADVANCE DIRECTIVE DISCUSSION [facility] Start: 2006 PNEUMOVAX AGE 65 AND OVER WITH 5YR LOOKBACK (#1) PNEUMOVAX AGE 65 AND OVER WITH 5YR LOOKBACK (#1) [facility] Start: 06-05-1991 SHINGRIX VACCINE (1 of 2) WILKES GRIX VACCINE (1 of 2) [facility] Start: 06-05-1991 Tuberculosis screening COLOREC DANNY CANCER SCREENING,SEE MODIFIER [facility] Start: 1986 DIABETES SCREEN DIABETES SCREEN [facility] Start: 1976 LIPID SCREEN LIPID SCREEN [facility] Start: 1960 Urine microalbumin profile DTAP,TDAP ,TD (1 - Tdap) [facility] Start: 06-05-1959 HEPATITIS C SCREENING HEPATITIS C SC SARAHI [facility] Payers Date Payer Category Payer Self-pay 2007 Unknown [id number] [id number] [id number] Social History Date Type Detail Facility Start: 01-24-2008 Tobacco smoking stat us ORIS Never smoker [facility] Start: 01-24-2008 Alcohol intake Current non-dr human resources assistant manager of alcohol (finding) [facility] Sex Assigned At Not on file [facility] Summary Purpose Family History No Family History Records Found Advance Directives No Advanced Directives Records Found Additional Source Comments (unrecognized sect ion and content) No Status Records Found INFORMATION SOURCE (unrecogn ized section and content) Source Comments (unrecognize d section and content) In the event this informatio n is protected by the Federal Confidentiality of Alcohol and Drug Abuse Patient Records regulations: The Federal rules restrict any use of the information to criminally investigate or prosecute any alcohol or drug abuse patient.[facility] FOR RECORDS PERTAINING TO PATIENTS WHO ARE OR HAVE BEEN ENROLLED IN A CHEMICAL DEPENDENCY/SUBSTANCEABUSE PROGRAM, SOME INFORMATION MAY BE OMITTED. This clinical summary was aggregated from multiple sources. Caution should be exercised in using it in the provision of clinical care. This summary normalizes information from multiple sources, and as a consequence, information in this document may materially change the coding, format and clinical context of patient data. In addition, data may be omitted in some cases. CLINICAL DECISIONS SHOULD BE BASED ON THE PRIMARY CLINICAL RECORDS. [facility]. provides no warranty or guarantee of the accuracy or completeness of information in this document.
--- NOTE | 2023-04-28 13:25 | CM.ED ---
Social Work SW introduced self and role to patient. SW discussed Advance directives with patient and patient reports he has not completed this documentation. SW explained HCPOA/Living will to patient and provided a rack card. Pt reports some interest and his daughter and granddaughter reside with him and help him. Pt is not interested in completing documents currently due to injury. SW provided support and patient denied any SW needs at this time. Farrah Christy PRODUCTION SOUND MIXER, TREASURY ACCOUNTANT
[2023-04-28 14:19] VITALS: BP 155/83; PULSE 63; RESP 16; TEMP 36.6; O2SAT 98
[2023-04-28] MEDS: Lidocaine/Epi/Tetracaine 50 ML 1 APPLIC TOPICAL (14:34)
== END 2023-04-28 14:35 | disposition home or self-care (01) ==
PROVIDERS: Emergency Provider Emergency Medicine; PCP Family Medicine Geriatric Medicine; Visit Provider Emergency Medicine
DX: S01.112A Laceration without foreign body of left eyelid and periocular area, initial encounter (principal); S05.32XA Ocular laceration without prolapse or loss of intraocular tissue, left eye, initial encounter; E03.9 Hypothyroidism, unspecified; S05.12XA Contusion of eyeball and orbital tissues, left eye, initial encounter; M10.9 Gout, unspecified; Z87.891 Personal history of nicotine dependence; I25.10 Atherosclerotic heart disease of native coronary artery without angina pectoris; I10 Essential (primary) hypertension; E78.2 Mixed hyperlipidemia; W19.XXXA Unspecified fall, initial encounter; Z23 Encounter for immunization
CPT/HCPCS: 12013; 70450; 72125; 90471; 99282

== ENCOUNTER → 2023-05-04 | Outpatient (CLI) | payer MEDICARE, SELFPAY ==
[2023-05-04 12:28] LABS: Thyroid Stim Hormone (TSH) 3.62 uIU/mL (0.358-3.74)
== END | disposition home or self-care (01) ==
LOC: POLAB3 10:31
PROVIDERS: PCP Family Medicine Geriatric Medicine; Visit Provider Family Medicine Geriatric Medicine
DX: E03.9 Hypothyroidism, unspecified (principal)
CPT/HCPCS: 36415; 84443

== ENCOUNTER → 2023-05-23 | Outpatient (CLI) | payer MEDICARE, SELFPAY ==
[2023-05-23 16:17] LABS: Absolute Lymphocyte Count 0.84 X10^3/uL (0.83-4.51); Absolute Neutrophil Count 3.4 X10^3/uL (2.0-7.7); Basophil# 0.03 X10^3/uL; Basophil% 0.6 % (0-1); Eosinophil# 0.12 X10^3/uL; Eosinophils% 2.5 % (0-5); Hematocrit 32.6 % (40-54); Hemoglobin 10.4 g/dL (13.0-16.5); Lymphocyte # 0.84 X10^3/ul (0.83-4.51); Lymphocyte % 17.2 % (19-41); Mean Corp Hgb Conc 31.9 g/dL (32-36); Mean Corpuscular Hgb 32.2 pg (27.0-32.0); Mean Corpuscular Volume 100.9 fL (80-94); Mean Platelet Vol. 10.7 fl (6.2-12.0); Monocyte% 10.2 % (0-10); NRBC Flagged by Analyzer 0 % (0-5); Neutrophil # 3.39 X10^3/uL (2.7-7.7); Neutrophil % 69.3 % (47-70); Platelet Count 141 K/mm3 (150-450); RBC Distribution Width CV 14.1 % (11.6-14.6); RBC Distribution Width SD 51.8 fl (35.1-43.9); Red Blood Count 3.23 M/mm3 (4.6-6.2); White Blood Count 4.9 K/mm3 (4.4-11.0)
[2023-05-23 17:06] LABS: Vitamin D,25 Hydroxy 27.7 ng/mL
[2023-05-23 17:16] LABS: AST(SGOT) 21 U/L (15-37); Alanine Aminotransfer ALT/SGPT 17 U/L (16-61); Albumin, Serum 3.6 g/dL (3.2-5.0); Alkaline Phosphatase 96 U/L (45-117); Anion Gap 3 (5-15); BUN 20 mg/dL (7-18); BUN/Creat Ratio 16.9 RATIO (10-20); Calcium,Total 8.6 mg/dL (8.5-10.1); Chloride 108 mmol/L (98-107); Creatinine, Serum 1.18 mg/dL (0.70-1.30); EST Glomerular Filtration Rate 63 mL/min (>60); Est Glom Filt Rate - Afr Amer 76 mL/min (>60); Globulin 3.5 g/dL (2.2-4.2); Glucose 99 mg/dL (74-106); Potassium 4.4 mmol/L (3.5-5.1); Protein, Total 7.1 g/dL (6.4-8.2); Sodium Level 138 mmol/L (136-145); Thyroid Stim Hormone (TSH) 4.63 uIU/mL (0.358-3.74); Uric Acid 3.4 mg/dL (3.5-7.2)
--- OUTSIDE RECORDS SUMMARY | 2023-05-23 18:18 | XMS RPT_ITS | CCD ---
Author Name Unknown Address [address] [place] [address] Organization [facility] Care Team Providers Care Marine Cargo Surveyor Name Role Phone TYLER COLES Unavailable Unavailable [...] Patient encounter procedure Nate Corbett Work Phone: [facility] Start: 10-24-2009 Results Only Nate Corbett Work Phone: [facility] Procedures Date Procedure Procedure Detail Performing Clinician Start: 10-24-2009 CONVERTED SURGICAL PATHOLOGY Nate Corbett Work Phone: Plan of Treatment Date Care Activity Detail Author Start: 12-04-2019 Influenza vaccination INFLUENZA (#1) [facility] Start: 2006 ADVANCE DIRECTIVE DISCUSSION ADVANCE DIRECTIVE DISCUSSION [facility] Start: 2006 PNEUMOVAX AGE 65 AND OVER WITH 5YR LOOKBACK (#1) PNEUMOVAX AGE 65 AND OVER WITH 5YR LOOKBACK (#1) [facility] Start: 06-05-1991 SHINGRIX VACCINE (1 of 2) WILKES GRIX VACCINE (1 of 2) [facility] Start: 06-05-1991 Tuberculosis screening COLOREC DANNY CANCER SCREENING,SEE MODIFIER [facility] Start: 1986 DIABETES SCREEN DIABETES SCREEN [facility] Start: 1976 LIPID SCREEN LIPID SCREEN [facility] Start: 1960 Urine microalbumin profile DTAP,TDAP ,TD (1 - Tdap) [facility] Start: 06-05-1959 HEPATITIS C SCREENING HEPATITIS C SC SARAHI [facility] Payers Date Payer Category Payer Self-pay 2007 Unknown [id number] [id number] [id number] Social History Date Type Detail Facility Start: 01-24-2008 Tobacco smoking stat us SDIS Never smoker [facility] Start: 01-24-2008 Alcohol intake Current non-dr chemistry department chair of alcohol (finding) [facility] Sex Assigned At Not on file [facility] [...] or prosecute any alcohol or drug abuse patient.[facility] FOR RECORDS PERTAINING TO PATIENTS WHO ARE [...] BE BASED ON THE PRIMARY CLINICAL RECORDS. [facility]. provides no warranty or guarantee of the accuracy or completeness of information in this document.
== END | disposition home or self-care (01) ==
LOC: LAB 15:22
PROVIDERS: PCP Family Medicine Geriatric Medicine; Referring Provider Family Medicine Geriatric Medicine; Visit Provider Family Medicine Geriatric Medicine
DX: I10 Essential (primary) hypertension (principal); E11.9 Type 2 diabetes mellitus without complications; E55.9 Vitamin D deficiency, unspecified; M10.9 Gout, unspecified
CPT/HCPCS: 36415; 80053; 82306; 84443; 84550; 85025

== ENCOUNTER → 2023-05-24 | Outpatient (CLI) | payer MEDICARE, SELFPAY ==
[2023-05-24 15:10] LABS: Basophil# 0.02 X10^3/uL; Basophil% 0.4 % (0-1); Eosinophil# 0.09 X10^3/uL; Hematocrit 31.7 % (40-54); Hemoglobin 10.1 g/dL (13.0-16.5); Lymphocyte % 19.8 % (19-41); Mean Corp Hgb Conc 31.9 g/dL (32-36); Mean Corpuscular Hgb 32.4 pg (27.0-32.0); Mean Corpuscular Volume 101.6 fL (80-94); Mean Platelet Vol. 10.6 fl (6.2-12.0); Monocyte# 0.51 X10^3/uL; Monocyte% 11.2 % (0-10); NRBC Flagged by Analyzer 0 % (0-5); Neutrophil % 66.2 % (47-70); Platelet Count 149 K/mm3 (150-450); RBC Distribution Width CV 14.2 % (11.6-14.6); RET-HE 37.1 pg (30-35); Red Blood Count 3.12 M/mm3 (4.6-6.2); Reticulocyte Count 2.09 % (0.5-1.5); White Blood Count 4.5 K/mm3 (4.4-11.0)
[2023-05-24 15:18] LABS: Vitamin B12 218 pg/mL (211-911)
[2023-05-24 15:29] LABS: Iron 64 ug/dL (65-175); Iron Binding Capacity,Total 238 ug/dL (250-450); PERCENT IRON SATURATION 26.9 % (15.0-55.0)
--- OUTSIDE RECORDS SUMMARY | 2023-05-24 19:29 | XMS RPT_ITS | CCD ---
Author Name Unknown Address [address] [place] [address] Organization [facility] Care Team Providers Care Animal Nutritionist Name Role Phone TYLER COLES Unavailable Unavailable Mike Palmer Chi Primary Care Provider [phone] Medications Completed/Discontinued Medications Medication Drug Class(es) Dates [...] Patient encounter procedure Nate Corbett Work Phone: [facility] Start: 10-24-2009 Results Only Nate Corbett Work Phone: [facility] Procedures Date Procedure Procedure Detail Performing Clinician Start: 10-24-2009 CONVERTED SURGICAL PATHOLOGY Nate Corbett Work Phone: Plan of Treatment Date Care Activity Detail Author Start: 12-04-2019 Influenza vaccination INFLUENZA (#1) [facility] Start: 2006 ADVANCE DIRECTIVE DISCUSSION ADVANCE DIRECTIVE DISCUSSION [facility] Start: 2006 PNEUMOVAX AGE 65 AND OVER WITH 5YR LOOKBACK (#1) PNEUMOVAX AGE 65 AND OVER WITH 5YR LOOKBACK (#1) [facility] Start: 06-05-1991 SHINGRIX VACCINE (1 of 2) WILKES GRIX VACCINE (1 of 2) [facility] Start: 06-05-1991 Tuberculosis screening COLOREC DANNY CANCER SCREENING,SEE MODIFIER [facility] Start: 1986 DIABETES SCREEN DIABETES SCREEN [facility] Start: 1976 LIPID SCREEN LIPID SCREEN [facility] Start: 1960 Urine microalbumin profile DTAP,TDAP ,TD (1 - Tdap) [facility] Start: 06-05-1959 HEPATITIS C SCREENING HEPATITIS C SC SARAHI [facility] Payers Date Payer Category Payer Self-pay 2007 Unknown [id number] [id number] Social History Date Type Detail Facility Start: 01-24-2008 Tobacco smoking stat us OKIS Never smoker [facility] Start: 01-24-2008 Alcohol intake Current non-dr core drill operator of alcohol (finding) [facility] Sex Assigned At Not on file [facility] [...] or prosecute any alcohol or drug abuse patient.[facility] FOR RECORDS PERTAINING TO PATIENTS WHO ARE [...] BE BASED ON THE PRIMARY CLINICAL RECORDS. [facility]. provides no warranty or guarantee of the accuracy or completeness of information in this document.
== END | disposition home or self-care (01) ==
LOC: POLAB3 14:18
PROVIDERS: PCP Family Medicine Geriatric Medicine; Visit Provider Family Medicine Geriatric Medicine
DX: I10 Essential (primary) hypertension (principal); E11.65 Type 2 diabetes mellitus with hyperglycemia; D50.9 Iron deficiency anemia, unspecified; M10.9 Gout, unspecified
CPT/HCPCS: 36415; 82607; 82746; 83540; 83550; 85025; 85045

== ENCOUNTER → 2023-05-25 | Outpatient (CLI) | payer MEDICARE, SELFPAY ==
--- OUTSIDE RECORDS SUMMARY | 2023-05-25 10:52 | XMS RPT_ITS | CCD ---
Author Name Unknown Address [address] [place] [address] Organization [facility] Care Team Providers Care Human Resources Benefits Coordinator Name Role Phone TYLER COLES Unavailable Unavailable [...] Patient encounter procedure Nate Corbett Work Phone: [facility] Start: 10-24-2009 Results Only Nate Corbett Work Phone: [facility] Procedures Date Procedure Procedure Detail Performing Clinician Start: 10-24-2009 CONVERTED SURGICAL PATHOLOGY Nate Corbett Work Phone: Plan of Treatment Date Care Activity Detail Author Start: 12-04-2019 Influenza vaccination INFLUENZA (#1) [facility] Start: 2006 ADVANCE DIRECTIVE DISCUSSION ADVANCE DIRECTIVE DISCUSSION [facility] Start: 2006 PNEUMOVAX AGE 65 AND OVER WITH 5YR LOOKBACK (#1) PNEUMOVAX AGE 65 AND OVER WITH 5YR LOOKBACK (#1) [facility] Start: 06-05-1991 SHINGRIX VACCINE (1 of 2) WILKES GRIX VACCINE (1 of 2) [facility] Start: 06-05-1991 Tuberculosis screening COLOREC DANNY CANCER SCREENING,SEE MODIFIER [facility] Start: 1986 DIABETES SCREEN DIABETES SCREEN [facility] Start: 1976 LIPID SCREEN LIPID SCREEN [facility] Start: 1960 Urine microalbumin profile DTAP,TDAP ,TD (1 - Tdap) [facility] Start: 06-05-1959 HEPATITIS C SCREENING HEPATITIS C SC SARAHI [facility] Payers Date Payer Category Payer Self-pay 2007 Unknown [id number] [id number] Social History Date Type Detail Facility Start: 01-24-2008 Tobacco smoking stat us AKIS Never smoker [facility] Start: 01-24-2008 Alcohol intake Current non-dr operations director of alcohol (finding) [facility] Sex Assigned At Not on file [facility] [...] or prosecute any alcohol or drug abuse patient.[facility] FOR RECORDS PERTAINING TO PATIENTS WHO ARE [...] BE BASED ON THE PRIMARY CLINICAL RECORDS. [employer] [facility]. provides no warranty or guarantee of the accuracy or completeness of information in this document.
== END | disposition home or self-care (01) ==
LOC: LABSPEC 10:29
PROVIDERS: PCP Family Medicine Geriatric Medicine; Visit Provider Family Medicine Geriatric Medicine
DX: I10 Essential (primary) hypertension (principal); E11.65 Type 2 diabetes mellitus with hyperglycemia; D50.9 Iron deficiency anemia, unspecified; M10.9 Gout, unspecified
CPT/HCPCS: 82274

== ENCOUNTER → 2023-06-14 | Outpatient (CLI) | payer MEDICARE, SELFPAY ==
--- NOTE | 2023-06-14 | LES_PTH ---
PATHOLOGY RESULTS PATIENT: CARLY HESS LOC: [facility] U#:[id number] AGE/SX: 83/M ROOM: RE06/14/[address]: Dr. Mike Palmer MD : 1940 BED: DIS: 06/14/2023 SPEC #: [id number] RECD: 06/15/23 09:24 STATUS: CRISTELA MAMIE #: [id number] OLU: 06/14/23 00:[address]: Mike Palmer Chi DEPT: SURGICAL PATHOLOGY RECD BY: Ayesha Watts ENTERED: 06/15/23 09:24 SP TYPE: Lesion Tissues: Skin of external ear, NOS Procedures: Surgery Specimen Level IV HEADER OPERATION: Left ear skin biopsy PRE-OP DIAGNOSIS: Skin lesion of left ear TISSUE SUBMITTED: Left ear MICROSCOPIC DIAGNOSIS Left ear lesion, biopsy; Seborrheic keratosis. ANDIE/ 06/16/2023 COMMENT Case has been reviewed in consultation with Dr. Blackwell who concurs with the above diagnosis. IDC:AM MICROSCOPIC DESCRIPTION Slides are reviewed. GROSS DESCRIPTION Received is one container labeled with the patient's name and not further designated. The specimen consists of a conical piece of zuleta-white skin measuring 1.0x 1.0x 0.3cm. The specimen is inked, serially sectioned and submitted entirely in one cassette. ANDIE/ 06/15/23 TC:1 CPT: 8805
--- OUTSIDE RECORDS SUMMARY | 2023-06-15 02:34 | XMS RPT_ITS | CCD ---
Author Name Unknown Address [address] [place] [address] Organization [facility] Care Team Providers Care Glass Or Mirror Inspector Name Role Phone TYLER COLES Unavailable Unavailable Mike Palmer Chi Primary Care Provider [phone] Medications Completed/Discontinued Medications Medication Drug Class(es) Dates [...] Patient encounter procedure Nate Corbett Work Phone: [facility] Start: 10-24-2009 Results Only Nate Corbett Work Phone: [facility] Procedures Date Procedure Procedure Detail Performing Clinician Start: 10-24-2009 CONVERTED SURGICAL PATHOLOGY Nate Corbett Work Phone: Plan of Treatment Date Care Activity Detail Author Start: 12-04-2019 Influenza vaccination INFLUENZA (#1) [facility] Start: 2006 ADVANCE DIRECTIVE DISCUSSION ADVANCE DIRECTIVE DISCUSSION [facility] Start: 2006 PNEUMOVAX AGE 65 AND OVER WITH 5YR LOOKBACK (#1) PNEUMOVAX AGE 65 AND OVER WITH 5YR LOOKBACK (#1) [facility] Start: 06-05-1991 SHINGRIX VACCINE (1 of 2) WILKES GRIX VACCINE (1 of 2) [facility] Start: 06-05-1991 Tuberculosis screening COLOREC DANNY CANCER SCREENING,SEE MODIFIER [facility] Start: 1986 DIABETES SCREEN DIABETES SCREEN [facility] Start: 1976 LIPID SCREEN LIPID SCREEN [facility] Start: 1960 Urine microalbumin profile DTAP,TDAP ,TD (1 - Tdap) [facility] Start: 06-05-1959 HEPATITIS C SCREENING HEPATITIS C SC SARAHI [facility] Payers Date Payer Category Payer Self-pay 2007 Unknown [id number] Social History Date Type Detail Facility Start: 01-24-2008 Tobacco smoking stat us NVIS Never smoker [facility] Start: 01-24-2008 Alcohol intake Current non-dr fixture builder of alcohol (finding) [facility] Sex Assigned At Not on [...] or prosecute any alcohol or drug abuse patient.[facility] FOR RECORDS PERTAINING TO PATIENTS [...] BE BASED ON THE PRIMARY CLINICAL RECORDS. [facility] [employer] [facility]. provides no warranty or guarantee of the accuracy or completeness of information in this document.
== END | disposition home or self-care (01) ==
LOC: LABSPEC 15:56
PROVIDERS: PCP Family Medicine Geriatric Medicine; Visit Provider Family Medicine Geriatric Medicine
DX: L82.1 Other seborrheic keratosis (principal); H61.92 Disorder of left external ear, unspecified
CPT/HCPCS: 88305

== ENCOUNTER → 2023-10-24 | Outpatient (CLI) | payer MEDICARE, SELFPAY ==
[2023-10-24 15:46] LABS: Absolute Lymphocyte Count 1.04 X10^3/uL (0.83-4.51); Absolute Neutrophil Count 4.1 X10^3/uL (2.0-7.7); Basophil# 0.03 X10^3/uL; Basophil% 0.5 % (0-1); Eosinophils% 1.7 % (0-5); Hematocrit 31.1 % (40-54); Lymphocyte # 1.04 X10^3/ul (0.83-4.51); Lymphocyte % 17.9 % (19-41); Mean Corp Hgb Conc 32.2 g/dL (32-36); Mean Corpuscular Hgb 31.5 pg (27.0-32.0); Mean Corpuscular Volume 98.1 fL (80-94); Mean Platelet Vol. 9.9 fl (6.2-12.0); Monocyte# 0.52 X10^3/uL; Monocyte% 8.9 % (0-10); NRBC Flagged by Analyzer 0 % (0-5); Neutrophil % 70.5 % (47-70); Platelet Count 154 K/mm3 (150-450); RBC Distribution Width CV 15.1 % (11.6-14.6); Red Blood Count 3.17 M/mm3 (4.6-6.2); White Blood Count 5.8 K/mm3 (4.4-11.0)
--- NOTE | 2023-10-24 16:05 | RAD_ITS ---
INDICATION: CHEST PAIN EXAMINATION/TECHNIQUE: X-RAY - XR Chest 1 View COMPARISON: 04/17/2020 FINDINGS: LINES/DEVICES: None. LUNGS: Stable diffuse coarsening of interstitial markings without acute superimposed consolidation, vascular congestion or pleural effusion. MEDIASTINUM AND CARDIOVASCULAR STRUCTURES: Stable enlargement of the cardiac silhouette with CABG changes. BONES AND SOFT TISSUES: No acute changes. RAD/Chest 1 View IMPRESSION: Stable diffuse interstitial lung disease without acute consolidative process. Stable enlargement of the cardiac silhouette. Electronically Signed: Ja Colorado MD at 19:22 EDT ,
--- NOTE | 2023-10-24 16:05 | RAD_ITS ---
ACR Level 3 findings have been noted. An addendum which confirms receipt of the report will follow. INDICATION: RIGHT THIGH PAIN EXAMINATION/TECHNIQUE: X-RAY - RIGHT XR Femur Min 2 Views 2 VIEWS COMPARISON: None. FINDINGS: SOFT TISSUES: No soft tissue swelling or gas. No radiopaque foreign body. BONES/JOINTS: No acute fracture. Joint spaces anatomically aligned with mild degenerative changes at the knee. 5.5 cm lytic lesion in the proximal femoral diaphysis with endosteal erosion and aggressive appearing margins. RAD/Femur Min 2 Views IMPRESSION: Findings suspicious for 5.5 cm metastatic lesion proximal right femoral diaphysis. Electronically Signed: Ja Colorado MD at 19:19 EDT ,
[2023-10-24 16:24] LABS: AST(SGOT) 15 U/L (15-37); Alanine Aminotransfer ALT/SGPT 14 U/L (16-61); Albumin, Serum 3.7 g/dL (3.2-5.0); Alkaline Phosphatase 132 U/L (45-117); Anion Gap 5 (5-15); BUN 18 mg/dL (7-18); BUN/Creat Ratio 12.9 RATIO (10-20); CPK Total, Creatine Kinase 90 U/L (39-308); Calcium,Total 8.8 mg/dL (8.5-10.1); Chloride 104 mmol/L (98-107); EST Glomerular Filtration Rate 52 mL/min (>60); Est Glom Filt Rate - Afr Amer 62 mL/min (>60); Globulin 3.6 g/dL (2.2-4.2); Glucose 100 mg/dL (74-106); Potassium 4.1 mmol/L (3.5-5.1); Protein, Total 7.3 g/dL (6.4-8.2); Sodium Level 135 mmol/L (136-145); Troponin-I HS 11 pg/mL (3.0-78.0)
[2023-10-26 04:08] LABS: Myoglobin, Serum 56 ng/mL (28-72)
== END | disposition home or self-care (01) ==
LOC: POLAB3 15:28 → RAD 15:49
PROVIDERS: PCP Family Medicine Geriatric Medicine; Visit Provider Family Medicine Geriatric Medicine
DX: R07.9 Chest pain, unspecified (principal); M79.651 Pain in right thigh; D50.9 Iron deficiency anemia, unspecified; E78.5 Hyperlipidemia, unspecified
CPT/HCPCS: 36415; 71045; 73552; 80053; 82550; 83874; 84484; 85025

== ENCOUNTER → 2023-10-27 | Outpatient (CLI) | payer MEDICARE, SELFPAY ==
[2023-10-29 04:08] LABS: Carcinoembryonic Antigen 5.5 ng/mL (0.0-4.7)
== END | disposition home or self-care (01) ==
LOC: LAB 16:35
PROVIDERS: PCP Family Medicine Geriatric Medicine; Referring Provider Family Medicine Geriatric Medicine; Visit Provider Family Medicine Geriatric Medicine
DX: Z12.5 Encounter for screening for malignant neoplasm of prostate (principal); C79.9 Secondary malignant neoplasm of unspecified site; D64.9 Anemia, unspecified
CPT/HCPCS: 36415; 82378; 84153; 84443; G0103

== ENCOUNTER → 2023-11-09 | Outpatient (CLI) | payer MEDICARE, SELFPAY ==
--- NOTE | 2023-11-09 09:02 | NM_ITS ---
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 WHOLE BODY 99m Tc MDP RADIONUCLIDE BONE SCINTIGRAPHY COMPARISON: Plain film radiograph report right femur 10/24/2023 FINDINGS: Following the intravenous administration of 27.1 mCi of 99m Tc MDP, whole body bone images reveal: 1. Increased radiopharmaceutical concentration is defined in the right proximal femoral diaphysis, the distal sternum, the intertrochanteric aspect of the left proximal femur, the left iliac wing. 2. Facilitated uptake is noted in the left anterior chest wall involving the seventh-ninth ribs, linear in presentation in the longitudinal plane. 3. Increased tracer is defined in the cervical and thoracic spine, the right wrist and elbow articulations, the acromioclavicular compartments of both shoulders, the sternoclavicular compartment of the right shoulder. 4. The remaining skeletal structures are scintigraphically unremarkable with normal-appearing renal images and urinary bladder activity identified. NM/Bone Scan Whole Body IMPRESSION: 1. The increase in tracer concentration identified in the right proximal femur, left iliac wing, distal sternum and intertrochanteric aspect of the left femur likely represents osteoblastic turnover attributed to skeletal metastatic disease. 2. 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 3. The left anterolateral chest wall (rib) abnormality is most consistent with trauma-fracture. Electronically Signed: Sky Ojeda DO at 11:09 EDT ,
== END | disposition home or self-care (01) ==
PROVIDERS: PCP Family Medicine Geriatric Medicine; Referring Provider Family Medicine Geriatric Medicine; Visit Provider Family Medicine Geriatric Medicine
DX: C79.9 Secondary malignant neoplasm of unspecified site (principal)
CPT/HCPCS: 78306; A9503

== ENCOUNTER → 2023-11-15 | Outpatient (CLI) | payer MEDICARE, SELFPAY ==
--- NOTE | 2023-11-15 11:55 | CT_ITS ---
STUDY: CT CHEST, ABDOMEN T PELVIS WITH CONTRAST REASON FOR EXAM: Male, 83 years old. Secondary malignant neoplasm of unspecified site RADIATION DOSAGE (If Supplied By Facility): CTDIvol = ( 21.73 ) mGy, DLP = ( 1700.74 ) mGycm TECHNIQUE: Transaxial imaging was performed following intravenous administration of Oral and amp; IV Gastrografin and amp; 100mL Isovue-300. Multiplanar coronal and sagittal images were reformatted. Individualized dose optimization techniques were used for this CT. COMPARISON: No relevant priors. FINDINGS: CHEST Small calcified granuloma in the medial aspect of the right lower lobe. Increased interstitial markings at the lung bases suggestive of a scar. There is evidence of bilateral calcified pleural plaques. There are calcifications of the coronary arteries. Left sided pericardial calcification. Normal mediastinum. Calcified right hilar lymphadenopathy. Normal unenhanced pulmonary arteries. There is atherosclerotic calcification of the aortic arch with tortuosity and elongation of the aortic arch and descending thoracic aorta. There are mild degenerative changes of the thoracic spine. ABDOMEN Minimally dilated intrahepatic biliary ducts. The patient is status post cholecystectomy. Normal spleen. Normal pancreas. Normal bilateral adrenal glands. There is a 7.1 cm x 9.2 cm x 4.6 cm heterogeneous exophytic mass in the upper medial pole of the right kidney. A neoplastic process should be ruled out. There is also evidence of a 1.5 cm simple cyst in the lower pole of the right kidney. Mild atrophy of the left kidney. There is a 6.5 mm nonobstructive calculus in the upper pole calyx of the right kidney. A 3 mm nonobstructing calculus also seen in the lower pole calyx as well as tiny calculi in the lower pole. There is also evidence of a 1.4 cm cyst in the lower pole of the left kidney. Normal visualized stomach. Normal small intestine. There are multiple colonic diverticula consistent with diverticulosis. The appendix is visualized and appears normal. There is scattered atherosclerotic calcification of the abdominal aorta, without a demonstrated aneurysm. Normal inferior vena cava. Normal retroperitoneum. Small benign appearing bilateral inguinal lymph nodes. There are diffuse degenerative changes of the visualized lumbar spine. Straightening of the normal lumbar lordosis. There is evidence of a 4.9 cm x 3.1 cm x 5.1 cm mass in the greater trochanter of the proximal left femur suggestive of a metastatic deposit. There is an 8.6 mm fat-containing nodule in the posterior aspect of the left ilium. PELVIS Mild degree of bladder wall thickening although the bladder is not completely distended. The prostate measures upper limits of normal. There is no pelvic fluid. There is no pelvic lymphadenopathy or mass lesion. There is diffuse atherosclerotic calcification of the pelvic arteries. CT/CT Chest, Abd, Pel w/Contrast IMPRESSION: 7.1 cm benign 0.2 cm x 4.6 cm heterogeneous exophytic mass in the upper medial pole of the right kidney. A neoplastic process should be ruled out. Small bilateral renal cysts. Nonobstructive left intrarenal calculus. Soft tissue mass in the greater trochanter of the proximal portion of the left femur suggestive of a metastatic deposit. Electronically Signed: Lavelle Del Valle MD at 15:27 EDT ,
== END | disposition home or self-care (01) ==
PROVIDERS: PCP Family Medicine Geriatric Medicine; Referring Provider Family Medicine Geriatric Medicine; Visit Provider Family Medicine Geriatric Medicine
DX: C79.9 Secondary malignant neoplasm of unspecified site (principal)
CPT/HCPCS: 71260; 74177; Q9967; A4216

== ENCOUNTER → 2023-11-24 | Outpatient (CLI) | payer MEDICARE, SELFPAY ==
[2023-11-24 16:01] LABS: Absolute Lymphocyte Count 0.65 X10^3/uL (0.83-4.51); Absolute Neutrophil Count 4.8 X10^3/uL (2.0-7.7); Basophil# 0.02 X10^3/uL; Basophil% 0.3 % (0-1); Eosinophil# 0.05 X10^3/uL; Eosinophils% 0.8 % (0-5); Hemoglobin 10.6 g/dL (13.0-16.5); Lymphocyte # 0.65 X10^3/ul (0.83-4.51); Lymphocyte % 10.8 % (19-41); Mean Corp Hgb Conc 33.1 g/dL (32-36); Mean Corpuscular Volume 96.7 fL (80-94); Mean Platelet Vol. 9.9 fl (6.2-12.0); Monocyte# 0.46 X10^3/uL; Monocyte% 7.6 % (0-10); NRBC Flagged by Analyzer 0 % (0-5); Neutrophil # 4.83 X10^3/uL (2.7-7.7); Neutrophil % 80.2 % (47-70); Platelet Count 165 K/mm3 (150-450); RBC Distribution Width CV 15.1 % (11.6-14.6); RBC Distribution Width SD 53.7 fl (35.1-43.9); Red Blood Count 3.31 M/mm3 (4.6-6.2)
[2023-11-24 16:45] LABS: ALB/GLOB Ratio 1.1 RATIO (0.9-2.4); AST(SGOT) 21 U/L (15-37); Alanine Aminotransfer ALT/SGPT 19 U/L (16-61); Albumin, Serum 3.7 g/dL (3.2-5.0); Alkaline Phosphatase 121 U/L (45-117); Anion Gap 9 (5-15); BUN 29 mg/dL (7-18); Calcium,Total 9.4 mg/dL (8.5-10.1); Chloride 103 mmol/L (98-107); Creatinine, Serum 1.26 mg/dL (0.70-1.30); EST Glomerular Filtration Rate 58 mL/min (>60); Est Glom Filt Rate - Afr Amer 70 mL/min (>60); Globulin 3.3 g/dL (2.2-4.2); Glucose 87 mg/dL (74-106); Potassium 3.7 mmol/L (3.5-5.1); Sodium Level 136 mmol/L (136-145); Uric Acid 3.8 mg/dL (3.5-7.2)
[2023-11-24 21:33] LABS: Vitamin D,25 Hydroxy 38.2 ng/mL (29.95-100.01)
== END | disposition home or self-care (01) ==
LOC: POLAB3 15:43
PROVIDERS: PCP Family Medicine Geriatric Medicine; Visit Provider Family Medicine Geriatric Medicine
DX: E03.9 Hypothyroidism, unspecified (principal); I10 Essential (primary) hypertension; E55.9 Vitamin D deficiency, unspecified; M10.9 Gout, unspecified
CPT/HCPCS: 36415; 80053; 82306; 84443; 84550; 85025

== ENCOUNTER → 2023-12-01 | Outpatient (CLI) | payer MEDICARE, SELFPAY ==
[2023-12-01] VITALS (10 sets, daily range): BP systolic 125–177; BP diastolic 66–99; PULSE 61–76; RESP 16–18; TEMP 36.3–36.4; O2SAT 95–100; BMI 21.5
--- NOTE | 2023-12-01 | IMM_PTH ---
PATIENT: CARLY HESS LOC: CT U#:[id number] AGE/SX: 83/M ROOM: RE12/01/[address]: Dr. Mike Palmer MD : 1940 BED: DIS: 12/01/2023 SPEC #: [id number] RECD: 12/02/23 11:00 STATUS: CRISTELA REQ #: [id number] OLU: 12/01/23 00:[address]: Mike Palmer Chi DEPT: IMMUNOHISTOCHEMISTRY RECD BY: Jair Garsia Tissues: Kidney, NOS Procedures: RCC (add) NAPSIN A (add) CD10 (add) CK20 (add) CK7 (add) CK8 (add) HEP PAR (add) TTF1 (add) Vimentin (add) Pankeratin (initial) PSAP (add) PAX8 (add) PHYSICIAN & INSTITUTION [place] [id number] SPECIMEN INFORMATION: Tissue Source: Kidney mass Clinical Info: Right kidney mass Specimen Number: [id number] CPT code: 47671,[id number] METHODOLOGY: Deparaffinized sections of prefer/formalin-fixed tissue or PAP/DQ stained slides are incubated with monoclonal/polyclonal antibodies/oligonucleotide probes. Localization is made via biotin free immunoperoxidase method. Appropriate controls are performed and reacted as expected. Results on target cell population are indicated in the following table: RESULTS: ANTIBODY / CLONE RESULT AE1-3 (AE1/AE3/PCK26) positive CK7 (OV-TL12/30) negative CK8 (83imsdI42) positive CK20 (KS20.8) negative CD10 (56C6) positive Vimentin (V9) positive TTF-1 (8G7G3/1) negative Napsin A (Rabbit Polyclonal) negative HepPar (OCh1E5) negative RCC (PN-15) positive PSAP (PASE/4LJ) negative PAX8 (MRQ50) positive These tests were developed and their performance characteristics determined by [facility]. They may not have been cleared or approved by the U.S. Food and Drug Administration. The FDA has determined that such clearance or approval is not necessary. The above immunohistochemical/dualISH markers are ordered and reviewed by the Pathologist. 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 Case has been reviewed in consultation with Dr. Blackwell who concurs with the above diagnosis. IDC:VALENTIN CHAVES/ 12/06/2023
--- NOTE | 2023-12-01 | KI_PTH ---
PATIENT: CARLY HESS LOC: [place] U#:[id number] AGE/SX: 83/M ROOM: RE12/01/[address]: Dr. 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 See comment. 12/02/2023 COMMENT The specimen is evaluated at the time of biopsy by Dr. Murphy. Immediate Evaluation = Adequate for evaluation. Immunohistochemistry ([id number]) supports the above diagnosis. Molecular studies on the tumor can be performed if clinically indicated. Please notify the laboratory if they are needed. Case has been reviewed in consultation with Dr. Blackwell who concurs with the above diagnosis. IDC:AM MICROSCOPIC DESCRIPTION Slides are reviewed. GROSS DESCRIPTION Received in fixative is one container labeled with the patient's name and designated Right kidney mass biopsy. The specimen consists of multiple fragments of zuleta soft tissue that in aggregate measure 1.5 x 0.2 x 0.1cm. The specimen is totally submitted in one cassette. Six touch imprints are prepared at the time of core biopsy. 12/01/2023 TC:0 CPT:15944,24158
[2023-12-01 08:09] LABS: Platelet Count 152 K/mm3 (150-450)
[2023-12-01] MEDS: 0.9% Saline Lock 10 ML Syringe IV (08:37)
[2023-12-01 09:02] LABS: Prothrombin Time (Protime)PT. 13.5 SECONDS (11.7-14.9)
[2023-12-01 09:03] LABS: Partial Thromboplast Time 30.4 Seconds (24.1-36.2)
[2023-12-01] MEDS: 0.9% Normal Saline (250mL Bag) 250 ML 15 ML IV (09:15)
[2023-12-01] MEDS: fentaNYL 100 MCG/2 ML Ampul IV (09:20)
[2023-12-01] MEDS: Midazolam 2 MG/2 ML Syringe IV (09:20)
[2023-12-01] MEDS: Lidocaine 2% (20 ml mdv) 20 ML Vial INFILT (09:25)
--- NOTE | 2023-12-01 11:28 | PCM.OP.PRO ---
Procedure Report Date of Procedure: 12/01/23 Assessment & Plan Assessment/Plan (1) Right kidney mass: PLAN: PROCEDURE: CT GUIDED RIGHT PERCUTANEOUS KIDNEY MASS BIOPSY. ORDERING PROVIDER: Dr. Palmer INDICATION: Male, 83 years old. Right kidney mass biopsy. PROVIDER: GARRET Neri CONSENT: Written informed consent was obtained having explained the risks, benefits and alternatives in detail with the patient. The specific risk of hemorrhage requiring further treatment or intervention was detailed and accepted. The patient accepted the risks and agreed to proceed. Laboratory review and clinical assessment was performed. PRE-PROCEDURE SEDATION ASSESSMENT: Current history and physical dictated by referring provider and reviewed. No clinical changes since date of exam. Patient has a Mallampati Score of Class 1 and ASA Class of 3. PROCEDURAL SEDATION PROTOCOL: The Drugs used were: 2 mg Versed, IV, and 50 mcg Fentanyl, IV. The sedation time was: 15 minutes, starting at 9:20 AM and terminated at 9:35 AM. The procedural sedation protocol was independently monitored by the department nurse. RADIATION DOSAGE (If Supplied By Facility): CTDIvol = 17.59 mGy, DLP = 409.44 mGycm Individualized dose optimization techniques were used for this CT. TECHNIQUE: The patient was placed on the CT table in the prone position. Multiple axial images were obtained from the lung base through the caudal extent of the kidneys. An appropriate entry site was identified and a kaur made on the skin. The skin overlying the right posterior flank was prepped and draped in sterile fashion. 2% lidocaine was administered subcutaneously for local anesthesia. Using CT guidance, an 18-gauge coaxial biopsy device was advanced to the periphery of the right kidney mass off of the lateral border. A total of 5 core specimens were obtained. Specimens were microscopically reviewed by pathology in the CT suite and placed in formalin solution for further analysis. The needle was withdrawn. Hemostasis was achieved with manual compression and a sterile dressing was applied. The patient tolerated the procedure well without immediate complications. The patient returned to the holding bay in stable condition for nursing monitoring, per protocol. IMPRESSION: 1. Successful CT guided percutaneous right kidney mass biopsy. Pathology results are pending. 2. Procedural Sedation protocol utilized with independent monitoring by the department nurse. Procedures Radiology Radiology CT Procedures: 98692 Biopsy Kidney Multi Select Codes Radiology Radiology CT Procedures: [id number] CT guidance parenchymal tissue
== END | disposition home or self-care (01) ==
PROVIDERS: Nurse Practitioner Acute Care; PCP Family Medicine Geriatric Medicine; Referring Provider Family Medicine Geriatric Medicine; Visit Provider Family Medicine Geriatric Medicine
DX: C64.1 Malignant neoplasm of right kidney, except renal pelvis (principal)
CPT/HCPCS: 50200; 36415; 77012; 85049; 85610; 85730; 88305; 88341; 88342; 99156; J7050

== ENCOUNTER 2023-12-03 18:49 | Emergency (ER) | payer MEDICARE, SELFPAY ==
[2023-12-03] VITALS (7 sets, daily range): BP systolic 144–176; BP diastolic 80–89; PULSE 79–102; RESP 12–20; TEMP 36.7–37; O2SAT 83–98
--- NOTE | 2023-12-03 19:12 | EKG12_ITS ---
Test Reason : FALL Blood Pressure : / mmHG Vent. Rate : 096 BPM Atrial Rate : 096 BPM P-R Int : 206 ms QRS Dur : 136 ms QT Int : 388 ms P-R-T Axes : -01 -22 019 degrees QTc Int : 490 ms Normal sinus rhythm Right bundle branch block Minimal voltage criteria for LVH, may be normal variant ( R in aVL ) Abnormal ECG Confirmed by SELINA MUÑOZ MD ([id number]), social media editor TIMOTHY CHAPPELL ([id number]) on 12/06/2023 8:13:20 AM Referred By: PALLAVI Confirmed By:SELINA MUÑOZ MD
--- NOTE | 2023-12-03 19:12 | CT_ITS ---
INDICATION: fall EXAMINATION: CT CERVICAL SPINE - CT Spine Cervical W/O Contrast Injection TECHNIQUE: Helically acquired images were obtained of the cervical spine. 2D reformatted images were reviewed. The protocol utilizes one or more of the following dose reduction techniques: automated exposure control, adjustment of mA and/or kV according to patient size,and/or use of iterative reconstruction technique. IV Contrast dosage and agent: None. RADIATION DOSAGE (If Supplied By Facility): CTDIvol = ( 19.96 ) mGy, DLP = ( 434.48 ) mGycm COMPARISON: CT cervical spine 04/28/2023 FINDINGS: ALIGNMENT: No subluxation. Straightening of the normal curvature. MINERALIZATION: Minimal anterior subluxation of C3 on C4, and C6 on C7. VERTEBRAL BODIES: No fracture or acute abnormality. DISC SPACES: Disc space narrowing with osteophytes most pronounced C4-C6. POSTERIOR ELEMENTS: Mild facet arthropathy at multiple levels. SPINAL CANAL: Maintained. PARASPINAL SOFT TISSUES: Unremarkable. OTHER: None. CT/Spine Cervical without Contras IMPRESSION: No evidence of fracture or traumatic subluxation. Straightening of the normal curvature may be due to positioning or muscle spasm. Degenerative changes, stable compared to prior. Electronically Signed: Sondra Parikh MD at 19:54 EDT ,
--- NOTE | 2023-12-03 19:12 | RAD_ITS ---
INDICATION: trauma EXAMINATION/TECHNIQUE: X-RAY - XR Pelvis 1 or 2 Views COMPARISON: FINDINGS: No fracture demonstrated. Femoral heads are normal in contour. No dislocation at the hips. RAD/Pelvis 1 or 2 Views IMPRESSION: No evidence of fracture. Electronically Signed: Sondra Parikh MD at 20:09 EDT ,
--- NOTE | 2023-12-03 19:12 | RAD_ITS ---
INDICATION: trauma EXAMINATION/TECHNIQUE: X-RAY - XR Chest 1 View COMPARISON: 10/24/2023 FINDINGS: LINES/DEVICES: None. LUNGS: No consolidation. Coarse opacities bilaterally likely calcified pleural plaques, unchanged. No pneumothorax. MEDIASTINUM: Aorta is atherosclerotic and tortuous. CARDIAC SILHOUETTE: Not enlarged. Sternal wires. BONES AND SOFT TISSUES: No acute abnormalities. RAD/Chest 1 View IMPRESSION: No evidence of active intrathoracic disease. Electronically Signed: Sondra Parikh MD at 20:08 EDT ,
--- NOTE | 2023-12-03 19:12 | CT_ITS ---
INDICATION: fall EXAMINATION: CT BRAIN - CT Head or Brain W/O Contrast Injection TECHNIQUE: Multiple axial images were obtained of the head without intravenous contrast. The protocol utilizes one or more of the following dose reduction techniques: automated exposure control, adjustment of mA and/or kV according to patient size,and/or use of iterative reconstruction technique. IV Contrast dosage and agent: None. RADIATION DOSAGE (If Supplied By Facility): CTDIvol = ( 44.99 ) mGy, DLP = ( 745.49 ) mGycm COMPARISON: CT head 04/28/2023 FINDINGS: BRAIN: No acute bleed. No edema. Mild decreased attenuation in the periventricular white matter bilaterally. Winter-white matter differentiation is maintained. Arterial calcifications. VENTRICLES AND SULCI: Ventricles are not dilated. The sulci are prominent. EXTRA-AXIAL: No hemorrhage, fluid collection, or mass. CALVARIUM / SKULL BASE: Unremarkable. FACE/SINUSES: Unremarkable. SOFT TISSUES: Unremarkable. CT/Brain/Head without Contrast IMPRESSION: No acute abnormality. Chronic microvascular ischemic disease. Electronically Signed: Sondra Parikh MD at 19:43 EDT ,
--- NOTE | 2023-12-03 19:15 | ED.VIS.FALL ---
HPI HPI - Fall History of Present Illness Chief Complaint: Fall Informant: patient, family and EMS Narrative Narrative: 83-year-old male presenting to the emergency room with fall and left femur deformity. Patient was trying to let the dog out on a leash and the dog got tangled around his feet and he fell down. This resulted in injury and deformity to the right femur region. 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 He recently underwent renal biopsy with results still pending. Bone imaging revealed potential metastatic uptake in the proximal right femur. He takes a baby aspirin a day but no other antiplatelets or blood thinners. He denies any other injuries. He is scheduled to see Dr. Woody Mancia in [place] next week. Patient received 50 mcg of fentanyl by EMS. [facility] Medical History Wears glasses Thyroid disease High cholesterol Hypertension History of echocardiogram History of stress test Cardiology follow-up encounter Kidney disease Kidney stones Former smoker Non-smoker COVID-19 (~02/06/20) Epistaxis Mixed hyperlipidemia Essential hypertension Osteoarthritis Gout Atherosclerotic heart disease of [place] coronary artery without angina pectoris history of severe headaches Shoulder pain Accident due to mechanical fall without injury Contusion of left shoulder Forehead abrasion Home Medications ?Medication ?Instructions ?Recorded ?Last Taken ?Type atorvastatin 40 mg tablet 40 mg PO QHS 06/21/19 12/01/22 History aspirin 81 mg tablet,delayed 81 mg PO DAILY 04/17/20 12/17/22 History release allopurinol 300 mg tablet 300 mg PO DAILY 06/04/22 Unknown History citalopram 10 mg tablet 10 mg PO DAILY 06/04/22 Unknown History levothyroxine 25 mcg tablet 75 mcg PO DAILY 06/04/22 Unknown History metoprolol tartrate 25 mg tablet 25 mg PO DAILY 06/04/22 Unknown History nitroglycerin 0.4 mg sublingual 0.4 mg sublingual Q5-15M PRN chest 06/04/22 Unknown Rx tablet pain #25 tabs pantoprazole 40 mg tablet,delayed 40 mg PO DAILY 12/03/23 Unknown History release Allergy/AdvReac Type Severity Reaction Status Date / Time No Known Allergies Allergy Verified 12/03/23 18:50 Family History Mother Cancer Sister Cancer Brother Myocardial infarction Brother Myocardial infarction Surgical History Hx of cystoscopy History of arthroscopy of left knee History of cholecystectomy History of coronary artery bypass surgery (~10/24/09) Social History Smoking Status: Never smoker alcohol intake: never substance use type: does not use caffeine: Yes Type: coffee Number of servings: 1 ROS ROS ED Constitutional Constitutional ED: Denies chills or weight loss Eyes Eyes: Denies change in vision or diplopia ENT ENT ED: Denies ear pain, rhinorrhea or sore throat Cardiovascular Cardiovascular: Denies chest pain, orthopnea, palpitations or racing heartbeat Respiratory/Chest Respiratory/Chest: Denies cough, dyspnea or orthopnea Gastrointestinal Gastrointestinal: Denies abdominal pain, diarrhea, nausea or vomiting Genitourinary Genitourinary ED: Denies dysuria, hematuria or urinary frequency Musculoskeletal Musculoskeletal: Reports other Details: Right thigh pain ; Denies arthralgias, back pain, myalgias or neck pain Integumentary Denies abscess or rash Neurologic Neurologic: Denies headache(s) or weakness Psychiatric Psychiatric: Denies anxiety, depression, suicidal ideation or suicidal thoughts Endocrine Endocrinology: Denies polydipsia, polyphagia or polyuria Allergic/Immunologic Allergic/Immunologic ED: Denies mouth swelling, tongue swelling or urticaria EXAM Physical Exam Narrative Exam Narrative: Patient appears in a quite amount of pain Const Vital Signs: 12/03/23 18:50 12/03/23 18:54 12/03/23 18:54 Temperature 98.6 F Temperature Source Temporal Pulse Rate 102 H Respiratory Rate 20 H Respiratory Effort Normal Respiratory Depth Normal Respiratory Pattern Normal Blood Pressure 176/86 H Blood Pressure Mean 116 Pulse Ox 97 Oxygen Delivery Method Room Air Oxygen Flow Rate (L/min) 12/03/23 19:54 12/03/23 19:57 12/03/23 20:00 Temperature Temperature Source Pulse Rate 98 87 Respiratory Rate 20 H 12 17 Respiratory Effort Respiratory Depth Respiratory Pattern Blood Pressure 144/80 H 165/87 H Blood Pressure Mean 101 113 Pulse Ox 90 83 98 Oxygen Delivery Method Room Air Nasal Cannula Oxygen Flow Rate (L/min) 2 Positive well nourished and well developed General Appearance ED: well developed HEENT Reports normocephalic, head/scalp atraumatic and moist mucous membranes Eyes PERRL and EOMs intact bilaterally Neck no lymphadenopathy, supple and no JVD Resp normal respiratory effort and clear to auscultation bilaterally Cardio regular rate, regular rhythm and no murmurs GI normal to inspection, nondistended, normoactive bowel sounds and non-tender Palpation: soft Back/Spine no CVA tenderness and normal ROM Extremity Extremity Narrative: There is shortening of the right leg. There is obvious deformity in the proximal to mid femur with large hematoma. Neurovascular intact distally with strong dorsalis pedis posterior tibial pulses. Sensation is intact. Perfusion appears normal. General Extremety ED: Negative for edema General Extremity: Negative for edema Neuro oriented x3 and CN's II-XII intact bilaterally Afshan Coma Scale: document GCS findings Spontaneous Obeys Commands Oriented 15 Sensorium / Orientation: alert Motor Exam: strength 5/5 throughout Psych mental status grossly normal Mood & Affect: Negative for depressed or tearful Skin no rashes or lesions noted and no wounds MDM MDM MDM Narrative Medical decision making narrative: Differential diagnosis includes but not limited to fracture pathologic fracture compartment syndrome hematoma head injury cervical spine injury anemia Patient received Ativan and Dilaudid for pain and intermittent spasm. TXA was administered due to the fracture and large hematoma. White count 6.5 hemoglobin 10.1 platelet count is 177 INR 1.2 PTT 26.7 glucose 119 total bilirubin 1.2 with a direct bilirubin 0.35 urinalysis 5-10 red cells 5-10 white cells rare bacteria negative nitrates. CT of the brain and cervical spine demonstrate no acute findings. My independent interpretation the chest x-ray is no acute process. My independent interpretation of the pelvis x-ray is no acute process. My independent interpretation of the plain films of the right femur is a pathologic fracture of the proximal diaphysis of the femur. Patient has been resting more comfortably. Because this is a pathologic fracture and we do not have orthopedics home care consultant today I spoke with [facility] the patient has been accepted by Dr. Good. Family was updated. We are currently awaiting bed assignment and then transfer process. History & Record Review Discussion w/independent historian: EMS personnel, Patient and Family Additional record(s) reviewed:: Prior outpatient record and Prior labs Lab Data Attestation: I reviewed the patient's lab results. Labs: Laboratory Results - last 24 hr 12/03/23 19:05 WBC 6.5 RBC 3.19 L Hgb 10.1 L Hct 31.0 L MCV 97.2 H MCH 31.7 MCHC 32.6 RDW Std Deviation 54.1 H RDW Coeff of Fiona 15.1 H Plt Count 177 MPV 10.3 Immature Gran % (Auto) 0.300 Neut % (Auto) 73.3 H Lymph % (Auto) 15.4 L [place] % (Auto) 9.7 Eos % (Auto) 0.8 Baso % (Auto) 0.5 Absolute Neuts (auto) 4.8 Absolute Lymphs (auto) 1.00 Nucleated RBC % 0 PT 14.8 INR 1.2 APTT 26.7 Sodium 137 Potassium 3.6 Chloride 104 Carbon Dioxide 24.0 Anion Gap 9 BUN 22 H Creatinine 1.22 Estim Creat Clear Calc 41.93 Est GFR (MDRD) Af Amer 73 Est GFR (MDRD) Non-Af 60 BUN/Creatinine Ratio 18.0 Glucose 119 H Calcium 9.3 Total Bilirubin 1.20 H Direct Bilirubin 0.35 H AST 22 ALT 15 L Alkaline Phosphatase 116 Total Protein 6.8 Albumin 3.7 Globulin 3.1 Urine Color Yellow Urine Clarity Clear Urine pH 5.0 Ur Specific [place] 1.020 Urine Protein 30 H Urine Glucose (UA) Normal Urine Ketones Negative Urine Occult Blood 250 H Urine Nitrite Negative Urine Bilirubin Negative Urine Urobilinogen Normal Ur Leukocyte Esterase 100 H Urine RBC 5-10 SEEN Urine WBC 5-10 SEEN Ur Squamous Epith Cells 0 SEEN Urine Bacteria RARE Urine Mucus RARE Radiography Diagnostic Testing: Clinical Impression(s) from Imaging Studies Brain CT 12/03/23 19:12 IMPRESSION: No acute abnormality. Chronic microvascular ischemic disease. Electronically Signed: Sondra Parikh MD at 19:43 EDT , Cervical Spine CT 12/03/23 19:12 IMPRESSION: No evidence of fracture or traumatic subluxation. Straightening of the normal curvature may be due to positioning or muscle spasm. Degenerative changes, stable compared to prior. Electronically Signed: Sondra Parikh MD at 19:54 EDT , Chest X-Ray 12/03/23 19:12 IMPRESSION: No evidence of active intrathoracic disease. Electronically Signed: Sondra Parikh MD at 20:08 EDT , Pelvis X-Ray 12/03/23 19:12 IMPRESSION: No evidence of fracture. Electronically Signed: Sondra Parikh MD at 20:09 EDT , Femur X-Ray 12/03/23 19:35 IMPRESSION: Acute pathologic fracture proximal femoral diaphysis. Electronically Signed: Sondra Parikh MD at 20:13 EDT , EKG Initial EKG: Attestation: I personally reviewed and interpreted this EKG as follows: Comments: Normal sinus rhythm ventricular rate of 96 bpm. Right bundle branch block noted. Discharge Plan Triage Chief Complaint: Fall ED Provider: Celso Harmon Dx/Rx/DC Orders Clinical Impression: Fall, Pathological fracture of right femur, Hematoma of right thigh Prescriptions: No Action atorvastatin 40 mg tablet 40 mg PO QHS levothyroxine 25 mcg tablet 75 mcg PO DAILY allopurinol 300 mg tablet 300 mg PO DAILY citalopram 10 mg tablet 10 mg PO DAILY metoprolol tartrate 25 mg tablet 25 mg PO DAILY nitroglycerin 0.4 mg tablet, sublingual 0.4 mg sublingual Q5-15M PRN (Reason: chest pain) Qty: 25 6RF Rx Instructions: do not exceed 3 doses per episode aspirin 81 mg tablet,delayed release (DR/EC) 81 mg PO DAILY pantoprazole 40 mg tablet,delayed release (DR/EC) 40 mg PO DAILY Primary Care Provider: Mike Palmer Chi Referrals: Mike Palmer Chi, MD [Primary Care Provider] - Print Language: Albanian Disposition Disposition: Acute Care Hospital Discharge Location: [facility]
[2023-12-03 19:22] LABS: Squamous Epithelial Cells - UA 0 SEEN /hpf (0-5)
[2023-12-03 19:25] LABS: Color, Urine Yellow (Yellow); Glucose, Dipstick Normal (Normal); Ketone-Dipstick Negative (Negative); Leukocyte Esterase-Dipstick 100 /ul (Negative); Nitrite-Dipstick Negative (Negative); Occult Blood-Urine 250 /ul (Negative); Protein-Dipstick 30 mg/dl (Negative); Urine Bilirubin Dipstick Negative (Negative); Urine Clarity Clear (Clear); Urine Urobilinogen Normal (Normal)
[2023-12-03 19:34] LABS: Absolute Neutrophil Count 4.8 X10^3/uL (2.0-7.7); Basophil# 0.03 X10^3/uL; Basophil% 0.5 % (0-1); Eosinophil# 0.05 X10^3/uL; Eosinophils% 0.8 % (0-5); Hemoglobin 10.1 g/dL (13.0-16.5); Lymphocyte % 15.4 % (19-41); Mean Corp Hgb Conc 32.6 g/dL (32-36); Mean Corpuscular Hgb 31.7 pg (27.0-32.0); Mean Corpuscular Volume 97.2 fL (80-94); Mean Platelet Vol. 10.3 fl (6.2-12.0); Monocyte# 0.63 X10^3/uL; Monocyte% 9.7 % (0-10); NRBC Flagged by Analyzer 0 % (0-5); Neutrophil # 4.75 X10^3/uL (2.7-7.7); Neutrophil % 73.3 % (47-70); Platelet Count 177 K/mm3 (150-450); RBC Distribution Width CV 15.1 % (11.6-14.6); RBC Distribution Width SD 54.1 fl (35.1-43.9); Red Blood Count 3.19 M/mm3 (4.6-6.2); White Blood Count 6.5 K/mm3 (4.4-11.0)
--- NOTE | 2023-12-03 19:35 | RAD_ITS ---
INDICATION: trauma EXAMINATION/TECHNIQUE: X-RAY - RIGHT XR Femur Min 2 Views 4 VIEWS COMPARISON: Prior study dated: Right femur x-ray 10/24/2023 FINDINGS: BONES: Acute oblique fracture right femur subtrochanteric through the lytic lesion previously shown on prior study. Cephalad migration anterior displacement of the distal femur, and apex anterolateral angulation. The femoral head is normal in contour. JOINTS: No dislocation. SOFT TISSUES: Unremarkable. RAD/Femur Min 2 Views IMPRESSION: Acute pathologic fracture proximal femoral diaphysis. Electronically Signed: Sondra Parikh MD at 20:13 EDT ,
[2023-12-03 19:42] LABS: AST(SGOT) 22 U/L (15-37); Alanine Aminotransfer ALT/SGPT 15 U/L (16-61); Albumin, Serum 3.7 g/dL (3.2-5.0); Alkaline Phosphatase 116 U/L (45-117); Anion Gap 9 (5-15); BUN 22 mg/dL (7-18); Bilirubin, Direct 0.35 mg/dL (0.00-0.30); Calcium,Total 9.3 mg/dL (8.5-10.1); Chloride 104 mmol/L (98-107); Creatinine, Serum 1.22 mg/dL (0.70-1.30); EST Glomerular Filtration Rate 60 mL/min (>60); Est Glom Filt Rate - Afr Amer 73 mL/min (>60); Estimated Creatinine Clearance 41.93 ml/min; Globulin 3.1 g/dL (2.2-4.2); Glucose 119 mg/dL (74-106); Potassium 3.6 mmol/L (3.5-5.1); Protein, Total 6.8 g/dL (6.4-8.2); Sodium Level 137 mmol/L (136-145)
[2023-12-03 19:43] LABS: International Normalized Ratio 1.2; Partial Thromboplast Time 26.7 Seconds (24.1-36.2); Prothrombin Time (Protime)PT. 14.8 SECONDS (11.7-14.9)
[2023-12-03] MEDS: LORazepam 2 MG/ML Syringe 0.5 MG IV (19:50)
[2023-12-03] MEDS: HYDROmorphone 1 MG/ML Syringe IV (19:50)
[2023-12-03 19:51] LABS: White Blood Cells 5-10 SEEN /hpf (0-5)
[2023-12-03 19:55] LABS: Mucous, Urine RARE /hpf (<or=2+)
[2023-12-03 19:56] LABS: Bacteria RARE /hpf (None Seen); Red Blood Cells-Urine 5-10 SEEN /hpf (0-5)
[2023-12-03] MEDS: TRANEXAMIC ACID 1,000 MG in 0.9% Normal Saline (100mL Bag) 100 ML 440 MG IV (19:59)
--- NOTE | 2023-12-03 21:10 | CASEMGMT ---
Social Work Date of referral: 12/03/2023 Reason for referral: Fall Referred by: Social Work identification cinder worker attempted to visit with patient so see how patient is feeling and to provide fall prevention education, to see if patient could benefit from an ERS device and to assess for depression related to recent cancer diagnosis. Patient was sound asleep and due to the nature of patient's injury, social services aide made the decision not to wake patient but instead to let patient rest. Dianne Bradley, MANAGER UTILIZATION MANAGEMENT, [employer]
== END 2023-12-03 22:05 | disposition short-term general hospital (02) ==
LOC: ED 19:49
PROVIDERS: Emergency Provider Emergency Medicine; PCP Family Medicine Geriatric Medicine; Visit Provider Emergency Medicine
DX: M84.551A Pathological fracture in neoplastic disease, right femur, initial encounter for fracture (principal); C79.51 Secondary malignant neoplasm of bone; C64.9 Malignant neoplasm of unspecified kidney, except renal pelvis; I25.10 Atherosclerotic heart disease of native coronary artery without angina pectoris; E78.2 Mixed hyperlipidemia; Z79.82 Long term (current) use of aspirin; I10 Essential (primary) hypertension; Z79.899 Other long term (current) drug therapy; S70.11XA Contusion of right thigh, initial encounter; W01.0XXA Fall on same level from slipping, tripping and stumbling without subsequent striking against object, initial encounter
CPT/HCPCS: 51702; 70450; 71045; 72125; 72170; 73552; 80048; 80076; 81001; 85025; 85610; 85730; 93005; 96365; 96375; 96376; 99285; J7050; A4216

== ENCOUNTER → 2024-03-13 | Outpatient (CLI) | payer MEDICARE, SELFPAY ==
[2024-03-13 16:33] LABS: Absolute Lymphocyte Count 0.77 X10^3/uL (0.83-4.51); Absolute Neutrophil Count 6.3 X10^3/uL (2.0-7.7); Basophil# 0.02 X10^3/uL; Basophil% 0.3 % (0-1); Eosinophil# 0.07 X10^3/uL; Eosinophils% 0.9 % (0-5); Hematocrit 27.4 % (40-54); Hemoglobin 8.6 g/dL (13.0-16.5); Lymphocyte # 0.77 X10^3/ul (0.83-4.51); Lymphocyte % 9.9 % (19-41); Mean Corp Hgb Conc 31.4 g/dL (32-36); Mean Corpuscular Hgb 29.6 pg (27.0-32.0); Mean Corpuscular Volume 94.2 fL (80-94); Mean Platelet Vol. 10.2 fl (6.2-12.0); Monocyte# 0.62 X10^3/uL; NRBC Flagged by Analyzer 0 % (0-5); Neutrophil # 6.27 X10^3/uL (2.7-7.7); Neutrophil % 80.4 % (47-70); Platelet Count 149 K/mm3 (150-450); RBC Distribution Width CV 17.7 % (11.6-14.6); RBC Distribution Width SD 61.2 fl (35.1-43.9); Red Blood Count 2.91 M/mm3 (4.6-6.2); White Blood Count 7.8 K/mm3 (4.4-11.0)
[2024-03-13 16:57] LABS: Protein, Urine (Random) 250.7 mg/dL (<11.9); Protein:Creat Ratio 1597 mg/g CRE (0-200)
[2024-03-13 16:58] LABS: AST(SGOT) 11 U/L (15-37); Alanine Aminotransfer ALT/SGPT 10 U/L (16-61); Albumin, Serum 3.4 g/dL (3.2-5.0); Alkaline Phosphatase 114 U/L (45-117); Anion Gap 8 (5-15); BUN 19 mg/dL (7-18); BUN/Creat Ratio 12.3 RATIO (10-20); Calcium,Total 8.9 mg/dL (8.5-10.1); Chloride 103 mmol/L (98-107); Cholesterol 85 mg/dL (200); Creatinine, Serum 1.55 mg/dL (0.70-1.30); EST Glomerular Filtration Rate 46 mL/min (>60); Est Glom Filt Rate - Afr Amer 55 mL/min (>60); Globulin 3.4 g/dL (2.2-4.2); Glucose 101 mg/dL (74-106); High Density Lipoprotein 38 mg/dL; Potassium 3.9 mmol/L (3.5-5.1); Protein, Total 6.8 g/dL (6.4-8.2); Sodium Level 133 mmol/L (136-145); Triglycerides 61 mg/dL; Uric Acid 5.2 mg/dL (3.5-7.2); Very Low Density Lipoprotein 12 mg/dL (5-40)
== END | disposition home or self-care (01) ==
LOC: POLAB3 16:14
PROVIDERS: PCP Family Medicine Geriatric Medicine; Visit Provider Family Medicine Geriatric Medicine
DX: I10 Essential (primary) hypertension (principal); R31.9 Hematuria, unspecified; N39.0 Urinary tract infection, site not specified
CPT/HCPCS: 36415; 80053; 80061; 82570; 84156; 84443; 84550; 85025; 87086; 87088

== ENCOUNTER → 2024-03-20 | Outpatient (CLI) | payer MEDICARE, SELFPAY ==
[2024-03-20 15:09] LABS: Absolute Lymphocyte Count 0.59 X10^3/uL (0.83-4.51); Absolute Neutrophil Count 5.1 X10^3/uL (2.0-7.7); Basophil# 0.04 X10^3/uL; Basophil% 0.6 % (0-1); Eosinophil# 0.08 X10^3/uL; Eosinophils% 1.3 % (0-5); Hematocrit 28.4 % (40-54); Hemoglobin 8.6 g/dL (13.0-16.5); Lymphocyte # 0.59 X10^3/ul (0.83-4.51); Lymphocyte % 9.4 % (19-41); Mean Corp Hgb Conc 30.3 g/dL (32-36); Mean Corpuscular Hgb 28.8 pg (27.0-32.0); Mean Platelet Vol. 9.9 fl (6.2-12.0); Monocyte# 0.49 X10^3/uL; Monocyte% 7.8 % (0-10); NRBC Flagged by Analyzer 0 % (0-5); Neutrophil # 5.09 X10^3/uL (2.7-7.7); Neutrophil % 80.6 % (47-70); POSITIVE DIFFERENTIAL YES; Platelet Count 145 K/mm3 (150-450); RBC Distribution Width CV 17.4 % (11.6-14.6); RBC Distribution Width SD 60.8 fl (35.1-43.9); Red Blood Count 2.99 M/mm3 (4.6-6.2); White Blood Count 6.3 K/mm3 (4.4-11.0)
== END | disposition home or self-care (01) ==
LOC: POLAB3 14:46
PROVIDERS: PCP Family Medicine Geriatric Medicine; Visit Provider Family Medicine Geriatric Medicine
DX: D64.9 Anemia, unspecified (principal); N39.0 Urinary tract infection, site not specified
CPT/HCPCS: 36415; 85025; 87077; 87086; 87088; 87186

== ENCOUNTER → 2024-05-01 | Outpatient (CLI) | payer MEDICARE, SELFPAY ==
--- NOTE | 2024-05-01 16:50 | RAD_ITS ---
PROCEDURE: CHEST PA AND LATERAL REASON FOR EXAM: CHF TECHNIQUE: Frontal and lateral views of the chest. COMPARISON: 12/03/2023 FINDINGS: Intermediate lung volumes. Calcified pleural plaques bilaterally. Atelectasis or scarring within th e left lung base. No new focal airspace consolidation, pneumothorax or pleural effusion is seen. Remaining lung markings othe rwise appears clear. Heart size measures upper limits of normal. Tortuosity and vascular calcifications throughout the thoracic aorta. There is evidence of prior sternotomy. Spondylotic change involving the thoracic spine. RAD/Chest PA and Lateral IMPRESSION: No acute cardiopulmonary process identified. Calcified pleural plaques again noted. Cardiac silhouette measures upper limits of normal. Evidence of prior cardiac surgery. Reading Location: [facility]
[2024-05-01 17:36] LABS: Absolute Lymphocyte Count 0.42 X10^3/uL (0.83-4.51); Absolute Neutrophil Count 4.3 X10^3/uL (2.0-7.7); Basophil# 0.03 X10^3/uL; Basophil% 0.6 % (0-1); Eosinophil# 0.06 X10^3/uL; Eosinophils% 1.1 % (0-5); Hematocrit 24.7 % (40-54); Hemoglobin 7.4 g/dL (13.0-16.5); Lymphocyte # 0.42 X10^3/ul (0.83-4.51); Mean Corpuscular Hgb 28.2 pg (27.0-32.0); Mean Corpuscular Volume 94.3 fL (80-94); Mean Platelet Vol. 10.2 fl (6.2-12.0); Monocyte# 0.44 X10^3/uL; Monocyte% 8.4 % (0-10); NRBC Flagged by Analyzer 0 % (0-5); Neutrophil # 4.26 X10^3/uL (2.7-7.7); Neutrophil % 81.1 % (47-70); POSITIVE DIFFERENTIAL YES; POSITIVE MORPHOLOGY YES; Platelet Count 133 K/mm3 (150-450); RBC Distribution Width CV 18.8 % (11.6-14.6); RBC Distribution Width SD 65.4 fl (35.1-43.9); Red Blood Count 2.62 M/mm3 (4.6-6.2); White Blood Count 5.3 K/mm3 (4.4-11.0)
[2024-05-01 17:48] LABS: Differential Indicated SCAN CRITERIA MET
[2024-05-01 17:59] LABS: Platelet Estimate SLT DEC (ADEQ); Red Cell Morphology N CHROM NORMAL (NORM C&C)
[2024-05-01 18:00] LABS: Anisocytosis 1+; Hypochromasia 1+; Macrocytosis 1+
[2024-05-01 18:04] LABS: Acanthocytes RARE; Ovalocyte RARE
[2024-05-01 19:37] LABS: Anion Gap 8 (5-15); BUN 20 mg/dL (7-18); BUN/Creat Ratio 14.7 RATIO (10-20); Calcium,Total 8.7 mg/dL (8.5-10.1); Chloride 106 mmol/L (98-107); Creatinine, Serum 1.36 mg/dL (0.70-1.30); EST Glomerular Filtration Rate 53 mL/min (>60); Est Glom Filt Rate - Afr Amer 64 mL/min (>60); Glucose 112 mg/dL (74-106); Sodium Level 137 mmol/L (136-145)
[2024-05-02 08:22] LABS: BNP,B-Type NATRIURETIC PEPTIDE 1326.5 pg/mL (0-100)
== END | disposition home or self-care (01) ==
LOC: POLAB3 16:43 → RAD 16:47
PROVIDERS: PCP Family Medicine Geriatric Medicine; Visit Provider Family Medicine Geriatric Medicine
DX: N39.0 Urinary tract infection, site not specified (principal); I50.9 Heart failure, unspecified
CPT/HCPCS: 36415; 71046; 80048; 83880; 85025; 87086; 87088

== ENCOUNTER → 2024-05-29 | Outpatient (CLI) | payer MEDICARE, SELFPAY ==
[2024-05-29 14:16] LABS: Absolute Lymphocyte Count 0.56 X10^3/uL (0.83-4.51); Absolute Neutrophil Count 3.8 X10^3/uL (2.0-7.7); Basophil# 0.02 X10^3/uL; Basophil% 0.4 % (0-1); Eosinophil# 0.04 X10^3/uL; Eosinophils% 0.8 % (0-5); Hematocrit 27.4 % (40-54); Hemoglobin 8.1 g/dL (13.0-16.5); Lymphocyte # 0.56 X10^3/ul (0.83-4.51); Lymphocyte % 11.4 % (19-41); Mean Corp Hgb Conc 29.6 g/dL (32-36); Mean Corpuscular Hgb 27.6 pg (27.0-32.0); Mean Corpuscular Volume 93.5 fL (80-94); Mean Platelet Vol. 10.3 fl (6.2-12.0); Monocyte# 0.47 X10^3/uL; Monocyte% 9.5 % (0-10); NRBC Flagged by Analyzer 0 % (0-5); Neutrophil # 3.82 X10^3/uL (2.7-7.7); Neutrophil % 77.5 % (47-70); POSITIVE DIFFERENTIAL YES; Platelet Count 154 K/mm3 (150-450); RBC Distribution Width CV 18.6 % (11.6-14.6); RBC Distribution Width SD 63.8 fl (35.1-43.9); Red Blood Count 2.93 M/mm3 (4.6-6.2); White Blood Count 4.9 K/mm3 (4.4-11.0)
[2024-05-29 20:45] LABS: ALB/GLOB Ratio 1.4 RATIO (0.9-2.4); AST(SGOT) 21 U/L (<=37); Alanine Aminotransfer ALT/SGPT 12 U/L (<=46); Albumin, Serum 4.1 g/dL (3.4-4.8); Alkaline Phosphatase 106 U/L (40-129); Anion Gap 15 (5-15); BUN 44 mg/dL (4-19); Calcium 9.7 mg/dL (7.6-11.0); Carbon Dioxide 22.4 mmol/L (22.0-29.0); Chloride 96 mmol/L (96-108); Creatinine, Serum 1.4 mg/dL (0.8-1.3); EST Glomerular Filtration Rate 49 (>60); Globulin 2.9 g/dL (2.2-4.2); Glucose 102 mg/dL (70-99); Potassium 4.9 mmol/L (3.3-5.1); Sodium Level 133 mmol/L (133-145); Total Bilirubin 0.82 mg/dL (0.00-1.30); Uric Acid 6.7 mg/dL (3.5-7.2); Vitamin D,25 Hydroxy 24.1 ng/mL (30-100)
== END | disposition home or self-care (01) ==
LOC: POLAB3 13:55
PROVIDERS: PCP Family Medicine Geriatric Medicine; Visit Provider Internal Medicine Nephrology
DX: I12.9 Hypertensive chronic kidney disease with stage 1 through stage 4 chronic kidney disease, or unspecified chronic kidney disease (principal); N18.31 Chronic kidney disease, stage 3a; D64.9 Anemia, unspecified; E55.9 Vitamin D deficiency, unspecified; M10.9 Gout, unspecified
CPT/HCPCS: 36415; 80053; 82306; 84100; 84443; 84550; 85025